=== PATIENT | female | born 1975 | race Caucasian/White ===

== ENCOUNTER 2017-04-10 09:00 | Day surgery (SDC) | payer MEDICAID, SELFPAY ==
[2017-04-10 09:31] LABS: Internal QC Validated? YES +Cl - CLEAR BKGD; Pregnancy, Urine Negative Negative
[2017-04-10 09:38] VITALS: BP 126/70; PULSE 54; RESP 18; TEMP 36.6; O2SAT 99; BMI 40.9
--- NOTE | 2017-04-10 10:55 | PCM.OPRPT ---
Problem List (1) Family history of colon cancer Status: Acute Comment: Father Report of Operation Date of Procedure: 04/10/17 Pre-Operative Diagnosis: Family history of colon cancer Post-Operative Diagnosis: Normal colon Surgery/Procedure Performed:: Colonoscopy Description of Surgical Findings:: Timeout and informed consent was obtained. 42-year-old female was taken to the endoscopy suite and placed in a left lateral decubitus position. Monitored tissue care was provided. Rectal exam performed. Normal anal tone. Mild hemorrhoidal changes. Flexible colonoscope inserted the rectum advanced with tortuous sigmoid colon. The scope was then advanced to the transverse colon and with transabdominal pressure was advanced to the cecum. Bowel prep was excellent. The cecum ileocecal valve was nicely achieved. The scope was carefully withdrawn from the ascending colon transverse colon descending colon and sigmoid. No focal abnormalities were identified. The scope was retroflexed within the rectum mild hemorrhoidal changes noted. Excess fluid and air was aspirated free the procedure was completed with the patient tolerating it well no apparent complications. Impression Normal colonoscopy Based upon family history recommendations for follow-up examination in 5 years. The patient has not had a previous examination. Cc: Dr. Tirado Colonoscopy initiated at 1041. Cecum reached at 1046. Procedure completed at 1052. Benny Hernandez M.D., F.A.C.S. Type of Anesthesia:: MAC
[2017-04-10 10:57] VITALS: BP 126/70; BP 133/88; PULSE 54; RESP 16; TEMP 37; O2SAT 98
[2017-04-10 11:02] VITALS: BP 123/83; BP 126/70; PULSE 50; RESP 16; O2SAT 100
[2017-04-10 11:07] VITALS: BP 110/79; BP 126/70; PULSE 54; RESP 16; O2SAT 100
[2017-04-10 11:12] VITALS: BP 123/85; BP 126/70; PULSE 46; RESP 18; TEMP 36.3; O2SAT 99
[2017-04-10 11:45] VITALS: BP 126/70
== END 2017-04-10 11:45 | disposition home or self-care (01) ==
LOC: EN 09:01 → AC 09:02
PROVIDERS: Anesthesiology; Visit Provider Surgery
PROC: 0DJD8ZZ Inspection of Lower Intestinal Tract, Via Natural or Artificial Opening Endoscopic (ICD-10-PCS; CPT 45378; principal; 2017-04-10 10:25)
DX: Z80.0 Family history of malignant neoplasm of digestive organs (principal); E66.01 Morbid (severe) obesity due to excess calories; E04.1 Nontoxic single thyroid nodule; Z68.41 Body mass index [BMI] 40.0-44.9, adult
CPT/HCPCS: 45378; 81025; J7120

== ENCOUNTER → 2017-04-22 12:12 | Outpatient (CLI) | payer MEDICAID, SELFPAY ==
--- NOTE | 2017-04-22 07:30 | ASPS_PTH ---
PATIENT: LEDA FINE LOC: [facility] U#:[id number] AGE/SX: 49/F ROOM: RE04/22/[address]: Dr. Benny Hernandez MD : 1975 BED: DIS: SPEC #: [id number] RECD: 04/22/17 12:15 STATUS: PHYLLIS SANTI #: [id number] BRIANNA: 04/22/17 07:[address]: Benny Hernandez DEPT: CYTOLOGY RECD BY: Max Strickland Tissues: Thyroid gland, NOS Procedures: Pap Stain (control) Special Stain Group II Cytology Other HEADER OPERATION: Right thyroid FNA PRE-OP DIAGNOSIS: Right thyroid FNA TISSUE SUBMITTED: Right thyroid slides (6 slides) DIAGNOSIS CYTOLOGY Right thyroid, FNA (smears): Consistent with chronic lymphocytic thyroiditis. SJ:amy 04/23/17 COMMENT Correlation with clinical, radiologic findings and appropriate follow up are necessary. CYTOLOGY STUDY Slides are reviewed. The specimen is adequate for evaluation. The specimen consists of numerous lymphocytes and benign follicular cells. CYTOLOGY GROSS Received are six smears labeled with the patient's name and designated per the requisition as right thyroid. Submitted for staining. 04/22/17 TC:5 CPT: 52906
== END ==
PROVIDERS: Visit Provider Surgery
DX: E04.1 Nontoxic single thyroid nodule (principal)
CPT/HCPCS: 88161; 88313

== ENCOUNTER → 2017-11-24 16:46 | Outpatient (CLI) | payer MEDICAID, SELFPAY ==
[2017-11-24 17:53] LABS: ALB/GLOB Ratio 0.9 RATIO (0.9-2.4); AST(SGOT) 15 U/L (15-37); Alanine Aminotransfer ALT/SGPT 19 U/L (13-56); Albumin, Serum 3.5 g/dL (3.2-5.0); Alkaline Phosphatase 71 U/L (45-117); Anion Gap 9 (5-15); BUN 14 mg/dL (7-18); BUN/Creat Ratio 19.8 RATIO (10-20); Calcium,Total 8.6 mg/dL (8.5-10.1); Chloride 108 mmol/L (98-107); Creatinine, Serum 0.71 mg/dL (0.55-1.02); EST Glomerular Filtration Rate 96 mL/min (>60); Est Glom Filt Rate - Afr Amer 117 mL/min (>60); Glucose 95 mg/dL (74-106); Potassium 3.7 mmol/L (3.5-5.1); Protein, Total 7.5 g/dL (6.4-8.2); Sodium Level 141 mmol/L (136-145)
== END ==
PROVIDERS: Visit Provider Family Medicine
DX: R94.5 Abnormal results of liver function studies (principal)
CPT/HCPCS: 36415; 80053

== ENCOUNTER → 2018-02-01 21:45 | Outpatient (CLI) | payer MEDICAID, SELFPAY ==
[2018-02-01 09:08] VITALS: BMI 43.4
[2018-02-05 08:29] LABS: HPV APTIMA, High Risk Negative (Negative)
== END ==
PROVIDERS: Family Provider Family Medicine; PCP Family Medicine; Referring Provider Nurse Practitioner Women's Health; Visit Provider Nurse Practitioner Women's Health
DX: Z12.4 Encounter for screening for malignant neoplasm of cervix (principal)
CPT/HCPCS: 87624; 88175; G0145

== ENCOUNTER → 2018-02-15 16:51 | Outpatient (CLI) | payer MEDICAID, SELFPAY ==
[2018-02-01 09:08] VITALS: BMI 43.4
--- NOTE | 2018-02-15 17:14 | RAD_ITS ---
STUDY: X-RAY CHEST REASON FOR EXAM: Female, 42 years old. Chest pain and pressure TECHNIQUE: PA and lateral views of the chest. COMPARISON: None. FINDINGS: The lungs are clear and expanded. There is no demonstrated pleural abnormality. Normal size heart. Normal mediastinum and jeremi. Normal visualized pulmonary arteries. Normal visualized aortic arch and descending thoracic aorta. Normal visualized thoracic spine. Normal visualized ribs, clavicles, and shoulders. There is no demonstrated abnormality of the visualized soft tissue structures of the upper abdomen. RAD/Chest PA and Lateral IMPRESSION: Normal x-ray examination of the chest. Electronically Signed: Darin Tinajero MD at 17:36 EST , Service support ,
== END ==
LOC: MTLAB 16:52 → MTRAD 17:13
PROVIDERS: Family Provider Family Medicine; PCP Family Medicine; Referring Provider Family Medicine; Visit Provider Family Medicine
DX: R05 Cough (principal)
CPT/HCPCS: 71046

== ENCOUNTER → 2018-03-24 15:31 | Outpatient (CLI) | payer MEDICAID, SELFPAY ==
[2018-02-01 09:08] VITALS: BMI 43.4
--- NOTE | 2018-03-24 15:34 | BI_ITS ---
MAMMOGRAPHY - BILATERAL SCREENING REASON FOR EXAM: Female, 43 years old. Routine annual screening examination. PERTINENT HISTORY: Grandmother with breast cancer. TECHNIQUE: Digital bilateral breast derick (3D mammographic acquisition) in the CC and MLO projections. 2-D mediolateral oblique (MLO) and craniocaudad (CC) views of both breasts were obtained. CAD: Full Field Digital Mammography with Computer Added Detection was performed. COMPARISON: No comparison mammograms available at this time. If any prior films become available, an addendum to this report can be generated. FINDINGS: Breast Composition: There are scattered areas of fibroglandular density. There are no dominant masses or suspicious calcifications. No other significant abnormalities are identified. BI/SCREENING MAMM (CAD), BILAT IMPRESSION: Negative screening mammogram. Yearly followup mammogram recommended. (A) ASSESSMENT CATEGORY: BIRADS Category 1: Negative. A letter regarding these results will be sent to the patient by the facility within 30 days. Approximately 10% of breast cancers are not detected by mammography. A normal mammogram should not delay biopsy of a clinically suspicious abnormality. [id number] Electronically Signed: Shawn Richter MD at 14:21 EST , Service support ,
== END ==
PROVIDERS: Family Provider Family Medicine; PCP Family Medicine; Visit Provider Nurse Practitioner Women's Health
DX: Z12.31 Encounter for screening mammogram for malignant neoplasm of breast (principal)
CPT/HCPCS: 77063; 77067

== ENCOUNTER → 2018-05-20 15:03 | Outpatient (CLI) | payer MEDICAID, SELFPAY ==
[2018-02-01 09:08] VITALS: BMI 43.4
--- NOTE | 2018-05-20 15:06 | US_ITS ---
STUDY: THYROID ULTRASOUND REASON FOR EXAM: Female, 43 years old. Thyroid nodule. TECHNIQUE: Ultrasound evaluation of the thyroid was performed with real-time and static morgan-scale imaging. COMPARISON: March 20, 2017. FINDINGS: RIGHT LOBE: The right lobe of the thyroid gland measures 4.3 x 1.6 x 1.7 cm. There is a heterogeneous echotexture. There is a 0.8 x 0.8 x 0.7 cm solid isoechoic nodule with hypoechoic rim in the mid right thyroid. There is peripheral vascularity. LEFT LOBE: The left lobe of the thyroid gland measures 4.8 x 1.9 x 1.6 cm. There is a heterogeneous echotexture. There is a hypoechoic nodules in the mid thyroid measuring 1 x 0.9 x 0.7 cm, there is a 1.5 x 0.6 x 0.7 cm hypoechoic nodule posteriorly in the lower pole which may represent a parathyroid gland. There is also an isoechoic nodule with hypoechoic rim, measuring 1.0 x 0.8 x 0.6 cm. These were demonstrated and is distinct nodules on the previous study and can be identified in retrospect. ISTHMUS: The isthmus measures 0.3 cm. The regional lymph nodes are normal. US/Thyroid IMPRESSION: Stable ultrasound. The most suspicious nodule is classified TR 2, not suspicious by ACR TIRADS classification. No biopsy or follow-up required. Electronically Signed: Randall Knapp DO at 21:53 EST Tel [phone], Service support ,
== END ==
PROVIDERS: Family Provider Family Medicine; PCP Family Medicine; Referring Provider Family Medicine; Visit Provider Family Medicine
DX: E04.1 Nontoxic single thyroid nodule (principal)
CPT/HCPCS: 76536

== ENCOUNTER → 2018-11-16 16:28 | Outpatient (CLI) | payer MEDICAID, SELFPAY ==
[2018-02-01 09:08] VITALS: BMI 43.4
--- NOTE | 2018-11-16 16:31 | RAD_ITS ---
HISTORY:CHRONIC KNEE PAIN, NO KNOWN INJURY CHRONIC KNEE PAIN, NO KNOWN INJURY COMPARISON: None FINDINGS: # of images incl. paperwork: 4 XR Knee Complete 4 Views or More: Right BONE AND JOINTS: No acute fracture or subluxation. SOFT TISSUES: Unremarkable. No radiopaque foreign body. RAD/Knee 4 or More Views IMPRESSION: No acute pathology at 2147 Reported and signed by: Radha Galvez DO Electronically Signed: Radha Galvez DO at 21:45 EDT Tel , Service support ,
--- NOTE | 2018-11-16 16:31 | RAD_ITS ---
HISTORY:PPainRAD-EXT/JT PPainRAD-EXT/JT COMPARISON: None FINDINGS: # of images incl. paperwork: 4 XR Knee Complete 4 Views or More: Left BONE AND JOINTS: No acute fracture or subluxation. SOFT TISSUES: Unremarkable. No radiopaque foreign body. RAD/Knee 4 or More Views IMPRESSION: No acute pathology at 2146 Reported and signed by: Radha Galvez DO Electronically Signed: Radha Galvez DO at 21:45 EDT Tel , Service support ,
== END ==
PROVIDERS: Family Provider Family Medicine; PCP Family Medicine; Referring Provider Family Medicine; Visit Provider Family Medicine
DX: M25.561 Pain in right knee (principal); M25.562 Pain in left knee
CPT/HCPCS: 73564

== ENCOUNTER → 2019-10-03 | Outpatient (CLI) | payer MEDICAID, SELFPAY ==
[2018-02-01 09:08] VITALS: BMI 43.4
[2019-10-03 12:16] LABS: Anion Gap 5 (5-15); BUN 13 mg/dL (7-18); BUN/Creat Ratio 20.1 RATIO (10-20); Calcium,Total 8.3 mg/dL (8.5-10.1); Chloride 113 mmol/L (98-107); Creatinine, Serum 0.65 mg/dL (0.55-1.02); EST Glomerular Filtration Rate 106 mL/min (>60); Est Glom Filt Rate - Afr Amer 128 mL/min (>60); Glucose 99 mg/dL (74-106); Potassium 3.9 mmol/L (3.5-5.1); Sodium Level 138 mmol/L (136-145)
[2019-10-03 12:29] LABS: Rubella IgG 19.9 IU/mL
[2019-10-07 13:09] LABS: Cholesterol 165 mg/dL (200); High Density Lipoprotein 42 mg/dL; Triglycerides 136 mg/dL; Very Low Density Lipoprotein 27 mg/dL (5-40)
[2019-10-10 11:34] LABS: Mumps Antibody,IgG 19.5 AU/mL (Immune >10.9)
== END | disposition home or self-care (01) ==
PROVIDERS: PCP Family Medicine; Referring Provider Family Medicine; Visit Provider Nurse Practitioner Family
DX: Z00.00 Encounter for general adult medical examination without abnormal findings (principal); Z78.9 Other specified health status
CPT/HCPCS: 36415; 80048; 80061; 86735; 86762; 86765

== ENCOUNTER → 2020-01-16 16:38 | Outpatient (CLI) | payer MEDICAID, SELFPAY ==
[2018-02-01 09:08] VITALS: BMI 43.4
--- NOTE | 2020-01-16 16:40 | US_ITS ---
STUDY: THYROID ULTRASOUND REASON FOR EXAM: Female, 44 years old. NODULE TECHNIQUE: Ultrasound evaluation of the thyroid was performed with real-time and static morgan-scale imaging. COMPARISON: 05/20/2018 FINDINGS: RIGHT LOBE: The right lobe of the thyroid gland measures 4.9 x 1.5 x 2 cm. There is a heterogeneous c echotexture. There is a hyperechoic solid nodule with irregular borders in the upper pole with intranodular vascularity measuring 8.7 x 7.2 mm LEFT LOBE: The left lobe of the thyroid gland measures 5 x 1.7 x 1.6 cm. There is a heterogeneous echotexture. There is a hyperechoic irregular nodule in the upper pole measuring 8 x 11 x 8 mm with perinodular vascularity. There is a second hypoechoic nodule in the mid pole measuring 8 x 7 x 6 mm ISTHMUS: The isthmus measures 2.6 mm . The regional lymph nodes are normal. There is a stable appearance to the nodule in the right lobe since prior study. The nodules in left lobe are slightly smaller US/Thyroid IMPRESSION: Persistent bilateral thyroid nodules with slight interval improvement since previous study Electronically Signed: Maximino Apple MD at 17:44 EST , Service support ,
== END ==
PROVIDERS: PCP Family Medicine; Referring Provider Family Medicine; Visit Provider Family Medicine
DX: E04.1 Nontoxic single thyroid nodule (principal)
CPT/HCPCS: 76536

== ENCOUNTER → 2020-02-15 | Outpatient (CLI) | payer MEDICAID, SELFPAY ==
[2018-02-01 09:08] VITALS: BMI 43.4
== END | disposition home or self-care (01) ==
LOC: LABSPEC 14:26
PROVIDERS: PCP Family Medicine; Visit Provider Family Medicine
DX: Z20.828 Contact with and (suspected) exposure to other viral communicable diseases (principal)
CPT/HCPCS: 87635; U0003

== ENCOUNTER 2021-07-03 15:09 | Outpatient (CLI) | payer MEDICAID, SELFPAY ==
--- NOTE | 2021-07-03 15:13 | US_ITS ---
STUDY: THYROID ULTRASOUND REASON FOR EXAM: Female, 46 years old. NODULE TECHNIQUE: Ultrasound evaluation of the thyroid was performed with real-time and static morgan-scale imaging. COMPARISON: 01/16/2020 thyroid ultrasound FINDINGS: RIGHT LOBE: The right lobe of the thyroid gland measures 5.1 x 1.6 x 1.7 cm. There is a homogeneous echotexture. There is a 1.0 x 0.9 x 0.8 isoechoic exophytic stable vascular solid nodule right thyroid. LEFT LOBE: The left lobe of the thyroid gland measures 5.6 x 1.6 x 1.5 cm. There is a homogeneous echotexture. There is a 1.4 x 0.9 x 1.0 cm mixed echogenicity left thyroid nodule. There is a 1.1 x 0.6 x 0.9 nodule with hypoechoic features. Minimal vascularity. ISTHMUS: The isthmus measures 3.2 . The regional lymph nodes are normal. US/Thyroid IMPRESSION: Stable bilateral pulmonary nodules. Recommend continued follow-up. Electronically Signed: Radha Ho MD at 7:58 EDT ,
== END 2021-07-03 23:59 | disposition home or self-care (01) ==
LOC: US 15:11
PROVIDERS: PCP Family Medicine; Referring Provider Family Medicine; Visit Provider Family Medicine
DX: E04.1 Nontoxic single thyroid nodule (principal)
CPT/HCPCS: 76536

== ENCOUNTER → 2021-10-10 | Outpatient (CLI) | payer MEDICAID, SELFPAY ==
[2021-10-10 18:17] LABS: Anion Gap 6 (5-15); BUN 15 mg/dL (7-18); BUN/Creat Ratio 22.1 RATIO (10-20); Chloride 108 mmol/L (98-107); Cholesterol 160 mg/dL (200); Creatinine, Serum 0.68 mg/dL (0.55-1.02); EST Glomerular Filtration Rate 99 mL/min (>60); Est Glom Filt Rate - Afr Amer 120 mL/min (>60); Glucose 106 mg/dL (74-106); High Density Lipoprotein 46 mg/dL; Potassium 3.7 mmol/L (3.5-5.1); Sodium Level 140 mmol/L (136-145); Triglycerides 137 mg/dL; Very Low Density Lipoprotein 27 mg/dL (5-40)
== END | disposition home or self-care (01) ==
LOC: MFPLAB 16:51
PROVIDERS: PCP Family Medicine; Referring Provider Family Medicine; Visit Provider Nurse Practitioner Family
DX: Z13.1 Encounter for screening for diabetes mellitus (principal); Z13.220 Encounter for screening for lipoid disorders
CPT/HCPCS: 36415; 80048; 80061

== ENCOUNTER → 2021-10-11 | Outpatient (CLI) | payer MEDICAID, SELFPAY ==
--- NOTE | 2021-10-11 07:49 | BI_ITS ---
MAMMOGRAPHY - BILATERAL SCREENING REASON FOR EXAM: Female, 46 years old. Routine annual screening examination. PERTINENT HISTORY: Grandmother with breast cancer. TECHNIQUE: Digital bilateral breast kalani (3D mammographic acquisition) in the CC and MLO projections. 2-D mediolateral oblique (MLO) and craniocaudad (CC) views of both breasts were obtained. CAD: Full Field Digital Mammography with Computer Added Detection was performed. COMPARISON: Comparison is made with prior examination dated 03/24/2018. FINDINGS: Breast Composition: There are scattered areas of fibroglandular density. There are no dominant masses or suspicious calcifications. No other significant abnormalities are identified. There has been no significant change since the prior study. BI/SCRN MAMM (CAD)W/KALANI BILAT IMPRESSION: Stable bilateral screening mammogram. Yearly follow-up mammogram recommended. (A) ASSESSMENT CATEGORY: BIRADS Category 1: Negative. A letter regarding these results will be sent to the patient by the facility within 30 days. Approximately 10% of breast cancers are not detected by mammography. A normal mammogram should not delay biopsy of a clinically suspicious abnormality. [id number] Electronically Signed: Shawn Richter MD at 8:23 EDT ,
== END | disposition home or self-care (01) ==
LOC: OPBI 07:48
PROVIDERS: PCP Family Medicine; Visit Provider Nurse Practitioner Family
DX: Z12.31 Encounter for screening mammogram for malignant neoplasm of breast (principal)
CPT/HCPCS: 77063; 77067

== ENCOUNTER 2022-03-06 13:13 | Emergency (ER) | payer MEDICAID, SELFPAY ==
[2022-03-06 13:14] VITALS: BP 147/86; PULSE 66; RESP 15; TEMP 36.1; O2SAT 99; BMI 34.9
--- NOTE | 2022-03-06 13:54 | EDS_ITS ---
HPI History of Present Illness HPI Narrative: Right hand injury in her garage door. Primarily right index and long finger. Chief Complaint: Upper Extremity Injury Informant: patient Occured/Mechanism Mechanism/Context: Yes injury and Yes blunt trauma Onset/Context/Timing Onset: Today and Hours Context: Sudden Onset Timing: Continuous Quality of Pain: Dull and Aching Current Severity: Moderate Maximum Severity: Moderate Associated Symptoms Associated Symptoms: Negative for Parasthesia, Weakness or Loss of Funtion Narrative Narrative: 47-year-old female [id number]. Past medical history of anxiety. No prior surgeries to her hand. She was manually opening her garage door when she got her hand caught between the creases of the slats of the door. Complaining of pain. No other injuries. Prior similar symptoms: No Recent Illness/Hospitalization: No PFSH [facility] Medical History (Updated 03/06/22 @ 14:[address] Thaddeus Redding MD) Allergic rhinitis Anxiety Family history of colon cancer IGT (impaired glucose tolerance) Morbid obesity Home Medications fluticasone propionate 50 mcg/actuation nasal spray,suspension (Flonase Allergy Relief) 50 mcg intranasal QDAY PRN allergies 03/20/17 [History Last Taken Unknown] sertraline 100 mg tablet (Zoloft) 100 mg PO QDAY 03/20/17 [History Last Taken Unknown] etonogestrel 0.12 mg-ethinyl estradiol 0.015 mg/24 hr vaginal ring (NuvaRing) 1 vag ring vaginal Q4W #1 ea 02/01/18 [Rx Last Taken Unknown] doxycycline hyclate 100 mg capsule 100 mg PO BID 03/06/22 [History Last Taken Unknown] Allergy/AdvReac Type Severity Reaction Status Date / Time Penicillins Allergy Unknown A Verified 03/06/22 13:14 CHILD, UNKNOWN RXN iodine AdvReac Rash Verified 03/06/22 13:14 Family History Father Colon cancer Mother CVA (cerebral vascular accident) Hypertension Diabetes Sister Seizures Surgical History S/P thyroid biopsy S/P tonsillectomy S/P wisdom tooth extraction Social History Smoking Status: Never smoker second hand exposure: No alcohol intake: never substance use type: does not use caffeine: No what type of physical activity do you participate in: none frequency: does not exercise seatbelt use: always ROS ROS ED ROS Narrative Viral syndrome a week ago. Since resolved. Review of Systems ROS Unobtainable: Denies due to encephalopathy Constitutional Constitutional ED: Denies chills or fever(s) Eyes Eyes: Denies blurry vision ENT ENT ED: Denies ear pain Cardiovascular Cardiovascular: Denies chest pain Respiratory/Chest Respiratory/Chest: Denies cough Gastrointestinal Gastrointestinal: Denies abdominal pain Genitourinary Genitourinary ED: Denies dysuria Musculoskeletal Musculoskeletal: Denies back pain Integumentary Denies abscess Neurologic Neurologic: Denies headache(s) Psychiatric Psychiatric: Denies anxiety Endocrine Endocrinology: Denies cold intolerance Hematologic/Lymphatic Hematologic/Lymphatic: Denies easy bleeding Allergic/Immunologic Allergic/Immunologic ED: Denies mouth swelling or tongue swelling EXAM Physical Exam Narrative Exam Narrative: Well-appearing 47-year-old female. Vital signs stable afebrile. H EENT exam unremarkable. Atraumatic. Nontender. Pupils round reactive light. Scalp and face nontender. No signs of trauma. C-spine nontender normal range of motion. Back nontender. Spine nontender. Lungs are clear. Heart regular rhythm. Chest wall nontender. Abdomen soft nontender. Moving all 4 extremities. Neurovascular intact. Right hand the right elbow forearm and wrist are nontender normal range of motion. Right hand has a superficial laceration on the distal phalanx of the right index finger on the palmar aspect that does not need to be repaired. There is also a contusion and bruise and subungual hematoma on the right long finger below the nail. Both areas are tender and swollen. No gross bony deformity. Normal flexion extension. The thumb ring and small digits are nontender as is the palm. Neurologic exam normal. Const Vital Signs: 03/06/22 13:14 Temperature 97.0 F L Temperature Source Temporal Pulse Rate 66 Respiratory Rate 15 Blood Pressure 147/86 H Blood Pressure Mean 106 Pulse Ox 99 Oxygen Delivery Method Room Air Positive well nourished, well developed and obese; Negative for cachectic, contractures or unkempt General Appearance ED: well developed and NAD; Negative for unkempt, cachectic, contractures, cyanotic or diaphoretic Nutritional Appearance: obese; Negative for cachectic HEENT Reports moist mucous membranes normocephalic and atraumatic; Negative for trauma or tenderness Eyes PERRL and EOMs intact bilaterally Neck full ROM and supple General: Negative for tenderness Lymph Lymphatic: Negative for other Chest Wall inspection of chest normal and palpation of chest normal Chest: Negative for other Resp normal respiratory effort and clear to auscultation bilaterally Effort and Inspection: Negative for pain with movement Auscultation: Negative for rales, rhonchi or wheezes Cardio regular rate, regular rhythm, S1 normal heart sound, S2 normal heart sound and no murmurs Rate: Negative for bradycardia or tachycardic GI non-tender, non-distended and no masses Inspection: Negative for abdominal distention Auscultation: normoactive bowel sounds Palpation: soft; Negative for tender or guarding Back/Spine no CVA tenderness General Back: Negative for CVA tenderness Cervical Spine: Negative for cervical spine tenderness Thoracic Spine / Upper Back: Negative for thoracic spinal tenderness Lumbar Spine / Lower Back: Negative for lumbar spinal tenderness Extremity normal to inspection and full ROM Extremity Narrative: Except right hand palmar aspect superficial laceration distal phalanx of the right index finger. Bruising subungual hematoma to the distal phalanx of the right long finger. No gross bony deformity. Both are tender. Normal range of motion. General Extremety ED: Yes edema General Extremity: edema Neuro oriented x3, CN's II-XII intact bilaterally, moves all extremities and no focal motor deficits Sensorium / Orientation: alert, oriented to person, oriented to place and oriented to time; Negative for orientation impaired, lethargic or stuporous Motor Exam: strength 5/5 throughout Psych mental status grossly normal Appearance: Negative for unkempt Mood & Affect: Negative for depressed, anxious or tearful Skin Skin Narrative: Superficial laceration palmar aspect right index finger distal phalanx. Bruise and hematoma right long finger distal phalanx. General Skin Exam: Negative for petechiae Lesions: no lesions Rashes: no rashes Trauma: laceration; Negative for no lacerations or abrasions MDM MDM MDM Narrative Medical decision making narrative: 47-year-old female was closing her garage door and injured her right hand. Has a superficial laceration distal phalanx and a subungual hematoma right long finger nail. X-ray to be obtained to rule out any fractures. Repeat unchanged at 2:44 PM. I did go over the x-rays with the patient. Discharged home. Ice and elevate. Tylenol Motrin. Wound care. Cleaned and dressed. Radiography Diagnostic Testing: Right hand x-ray, 3 views, interpreted by myself shows soft tissue swelling of the right index and long finger. No fracture. No dislocation. Discharge Plan Triage Chief Complaint: Upper Extremity Injury ED Provider: Thaddeus Redding Dx/Rx/DC Orders Clinical Impression: Contusion of finger, Superficial laceration, Subungual hematoma Instructions: ED Finger Contusion, ED Subungual Hematoma Prescriptions: No Action sertraline [Zoloft] 100 mg tablet 100 mg PO QDAY fluticasone propionate [Flonase Allergy Relief] 50 mcg/actuation spray,suspension 50 mcg INTRANASAL QDAY PRN (Reason: allergies) NuvaRing 0.12-0.015 mg/24 hr ring 1 vag ring VAGINAL Q4W Qty: 1 12RF Rx Instructions: leave in place for 4 weeks, remove for menses and insert new one 1 week later doxycycline hyclate 100 mg capsule 100 mg PO BID Label Comments: TAKE 1 CAPSULE BY MOUTH TWICE DAILY FOR 10 DAYS Primary Care Provider: Elvis Tirado Referrals: Elvis Tirado MD [Primary Care Provider] - 1 Week Activity Restrictions/Additional Instructions: Ice and elevate. Keep the laceration clean apply antibiotic ointment daily. Watch for any signs of infection. If seen return. Motrin and Tylenol for pain. Disposition Disposition: Home, Self Care
--- NOTE | 2022-03-06 13:59 | RAD_ITS ---
STUDY: X-RAY - RIGHT HAND REASON FOR EXAM: Female, 47 years old. smashed fingers, pain, 2nd, 3rd, and tip of 4th digits have lacerations. TECHNIQUE: 3 view(s) of the hand. COMPARISON: None. FINDINGS: Normal radiocarpal articulation. Normal distal radioulnar joint. Normal visualized carpal bones. Normal carpal articulations Normal carpometacarpal articulation of the thumb. Normal second through fifth carpometacarpal joints. Normal metacarpi. No visualized fracture or displaced bony fragment. Normal metacarpophalangeal joint of the thumb. Normal interphalangeal joint of the thumb. Normal proximal and distal phalanges of the thumb. Normal metacarpophalangeal joints of the second through fifth fingers. Normal proximal and distal interphalangeal joints of the second through fifth fingers. Normal phalanges of the second through fifth fingers. The soft tissue structures are unremarkable. RAD/Hand Min 3 Views IMPRESSION: Normal x-ray examination of the hand. Electronically Signed: Shelton Victor MD at 14:33 EST ,
== END 2022-03-06 14:58 | disposition home or self-care (01) ==
PROVIDERS: Emergency Provider Emergency Medicine; PCP Family Medicine; Visit Provider Emergency Medicine
DX: S61.210A Laceration without foreign body of right index finger without damage to nail, initial encounter (principal); F41.9 Anxiety disorder, unspecified; E66.9 Obesity, unspecified; M79.89 Other specified soft tissue disorders; W23.0XXA Caught, crushed, jammed, or pinched between moving objects, initial encounter
CPT/HCPCS: 73130; 99282

== ENCOUNTER → 2023-01-21 | Outpatient (CLI) | payer MEDICAID, SELFPAY ==
[2023-01-21 17:57] LABS: Absolute Lymphocyte Count 2.02 X10^3/uL (0.83-4.51); Absolute Neutrophil Count 3.7 X10^3/uL (2.0-7.7); Basophil# 0.06 X10^3/uL; Eosinophil# 0.08 X10^3/uL; Eosinophils% 1.3 % (0-5); Hematocrit 40.7 % (37-47); Hemoglobin 12.6 g/dL (12.0-15.0); Lymphocyte # 2.02 X10^3/ul (0.83-4.51); Lymphocyte % 32.4 % (19-41); Mean Corpuscular Hgb 26.8 pg (27.0-32.0); Mean Corpuscular Volume 86.6 fL (81-99); Mean Platelet Vol. 10.7 fl (6.2-12.0); Monocyte# 0.32 X10^3/uL; Monocyte% 5.1 % (0-10); NRBC Flagged by Analyzer 0 % (0-5); Neutrophil # 3.74 X10^3/uL (2.7-7.7); Neutrophil % 59.9 % (47-70); Platelet Count 296 K/mm3 (150-450); RBC Distribution Width CV 14.7 % (11.6-14.6); RBC Distribution Width SD 46.8 fl (35.1-43.9); White Blood Count 6.2 K/mm3 (4.4-11.0)
[2023-01-21 18:24] LABS: ALB/GLOB Ratio 0.8 RATIO (0.9-2.4); AST(SGOT) 18 U/L (15-37); Alanine Aminotransfer ALT/SGPT 23 U/L (13-56); Albumin, Serum 3.6 g/dL (3.2-5.0); Alkaline Phosphatase 85 U/L (45-117); Anion Gap 9 (5-15); BUN 17 mg/dL (7-18); BUN/Creat Ratio 27.4 RATIO (10-20); Calcium,Total 9.2 mg/dL (8.5-10.1); Chloride 106 mmol/L (98-107); Cholesterol 175 mg/dL (200); Creatinine, Serum 0.62 mg/dL (0.55-1.02); EST Glomerular Filtration Rate 110 mL/min (>60); Est Glom Filt Rate - Afr Amer 133 mL/min (>60); Globulin 4.6 g/dL (2.2-4.2); Glucose 101 mg/dL (74-106); High Density Lipoprotein 54 mg/dL; Potassium 3.6 mmol/L (3.5-5.1); Protein, Total 8.2 g/dL (6.4-8.2); Sodium Level 139 mmol/L (136-145); Triglycerides 93 mg/dL; Very Low Density Lipoprotein 19 mg/dL (5-40)
[2023-01-22 14:40] LABS: Hemoglobin A1c 5.3 % (3.8-5.6)
[2023-01-26 15:08] LABS: PROEL- A/G Ratio 0.9 (0.7-1.7); PROEL- Albumin 3.5 g/dL (2.9-4.4); PROEL- Alpha-1 Globulin 0.3 g/dL (0.0-0.4); PROEL- Alpha-2 Globulin 0.9 g/dL (0.4-1.0); PROEL- Beta Globulin 1.3 g/dL (0.7-1.3); PROEL- Gamma Globulin 1.3 g/dL (0.4-1.8); PROEL- Globulin, Total 3.9 g/dL (2.2-3.9); PROEL- TOTAL PROTEIN 7.4 g/dL (6.0-8.5); PROEL-M-Spike Not Observed g/dL (Not Observed)
== END | disposition home or self-care (01) ==
LOC: MFPLAB 16:55
PROVIDERS: PCP Family Medicine; Visit Provider Family Medicine
DX: E88.09 Other disorders of plasma-protein metabolism, not elsewhere classified (principal); E66.01 Morbid (severe) obesity due to excess calories; R73.09 Other abnormal glucose
CPT/HCPCS: 36415; 80053; 80061; 83036; 84165; 85025

== ENCOUNTER → 2023-11-17 | Outpatient (CLI) | payer MEDICAID, SELFPAY ==
[2023-11-17 17:45] LABS: Absolute Neutrophil Count 3.4 X10^3/uL (2.0-7.7); Basophil# 0.03 X10^3/uL; Basophil% 0.5 % (0-1); Eosinophil# 0.11 X10^3/uL; Eosinophils% 1.8 % (0-5); Hematocrit 36.9 % (37-47); Hemoglobin 11.7 g/dL (12.0-15.0); Lymphocyte % 35.6 % (19-41); Mean Corp Hgb Conc 31.7 g/dL (32-36); Mean Corpuscular Hgb 26.5 pg (27.0-32.0); Mean Corpuscular Volume 83.5 fL (81-99); Mean Platelet Vol. 10.9 fl (6.2-12.0); Monocyte# 0.42 X10^3/uL; Monocyte% 6.8 % (0-10); NRBC Flagged by Analyzer 0 % (0-5); Platelet Count 274 K/mm3 (150-450); RBC Distribution Width CV 15.1 % (11.6-14.6); Red Blood Count 4.42 M/mm3 (4.2-5.4); White Blood Count 6.2 K/mm3 (4.4-11.0)
[2023-11-17 18:26] LABS: ALB/GLOB Ratio 0.9 RATIO (0.9-2.4); AST(SGOT) 22 U/L (15-37); Alanine Aminotransfer ALT/SGPT 20 U/L (13-56); Albumin, Serum 3.5 g/dL (3.2-5.0); Alkaline Phosphatase 75 U/L (45-117); Anion Gap 6 (5-15); BUN 15 mg/dL (7-18); BUN/Creat Ratio 24.5 RATIO (10-20); Calcium,Total 8.9 mg/dL (8.5-10.1); Chloride 105 mmol/L (98-107); Cholesterol 160 mg/dL (200); Creatinine, Serum 0.61 mg/dL (0.55-1.02); EST Glomerular Filtration Rate 111 mL/min (>60); Est Glom Filt Rate - Afr Amer 134 mL/min (>60); Globulin 4.1 g/dL (2.2-4.2); Glucose 96 mg/dL (74-106); High Density Lipoprotein 50 mg/dL; Potassium 3.8 mmol/L (3.5-5.1); Protein, Total 7.6 g/dL (6.4-8.2); Sodium Level 137 mmol/L (136-145); Triglycerides 81 mg/dL; Very Low Density Lipoprotein 16 mg/dL (5-40)
[2023-11-18 14:28] LABS: Ferritin 89 ng/mL (8-252); Iron 46 ug/dL (50-170); Iron Binding Capacity,Total 360 ug/dL (250-450); PERCENT IRON SATURATION 12.8 % (15.0-55.0)
== END | disposition home or self-care (01) ==
LOC: MFPLAB 16:38
PROVIDERS: PCP Family Medicine; Visit Provider Family Medicine
DX: E66.01 Morbid (severe) obesity due to excess calories (principal); D64.9 Anemia, unspecified
CPT/HCPCS: 36415; 80053; 80061; 82728; 83540; 83550; 85025

== ENCOUNTER → 2023-12-09 | Outpatient (CLI) | payer MEDICAID, SELFPAY ==
--- NOTE | 2023-12-09 16:25 | US_ITS ---
EXAM: US SOFT TISSUES HEAD AND NECK, THYROID CLINICAL INDICATION: nodule TECHNIQUE: Greyscale and color doppler imaging was performed of the thyroid gland. COMPARISON: 03/20/2017; 05/20/2018; 01/16/2020 FINDINGS: LEFT THYROID LOBE: The left thyroid lobe measures 5.5 x 1.8 x 1.7 cm. There is a 1.5 cm left thyroid nodule. This nodule is solid or almost completely solid, hyperechoic or isoechoic, [id number], ill-defined and contains no echogenic foci. TI-RADS points: 3. TI-RADS category: TR3. This nodule is mildly suspicious. Recommend follow-up thyroid ultrasounds at 1, 3 and 5 years. There is a 0.7 cm left thyroid nodule. This nodule is solid or almost completely solid, hypoechoic, [id number], smoothly marginated and contains no echogenic foci. TI-RADS points: 4. TI-RADS category: TR4. This nodule is moderately suspicious but no FNA or follow-up is necessary given the small size of this nodule. RIGHT THYROID LOBE: The right thyroid lobe measures 5.1 x 1.6 x 1.7 cm. There is a 1.3 cm right thyroid nodule. This nodule is solid or almost completely solid, hyperechoic or isoechoic, [id number]-[id number]-uvor, smoothly marginated and contains no echogenic foci. TI-RADS points: 3. TI-RADS category: TR3. This nodule is mildly suspicious but no FNA or follow-up is necessary given the small size of this nodule. ISTHMUS: No significant abnormality. No thyroid nodules are present. US/Thyroid IMPRESSION: Bilateral thyroid nodules. No FNA is recommended this time. Recommend follow-up thyroid ultrasound in 1 year. Electronically Signed: Brad De Leon DO at 21:23 EDT ,
== END | disposition home or self-care (01) ==
LOC: US 16:22
PROVIDERS: PCP Family Medicine; Referring Provider Family Medicine; Visit Provider Family Medicine
DX: E04.1 Nontoxic single thyroid nodule (principal)
CPT/HCPCS: 76536

== ENCOUNTER → 2024-08-12 | Outpatient (CLI) | payer MEDICAID, SELFPAY ==
[2024-08-12 19:50] LABS: Absolute Lymphocyte Count 1.92 X10^3/uL (0.83-4.51); Absolute Neutrophil Count 3.4 X10^3/uL (2.0-7.7); Basophil# 0.02 X10^3/uL; Basophil% 0.3 % (0-1); Eosinophil# 0.15 X10^3/uL; Eosinophils% 2.6 % (0-5); Hemoglobin 11.5 g/dL (12.0-15.0); Lymphocyte # 1.92 X10^3/ul (0.83-4.51); Mean Corp Hgb Conc 31.1 g/dL (32-36); Mean Corpuscular Hgb 26.9 pg (27.0-32.0); Mean Corpuscular Volume 86.7 fL (81-99); Mean Platelet Vol. 10.8 fl (6.2-12.0); Monocyte# 0.34 X10^3/uL; Monocyte% 5.8 % (0-10); NRBC Flagged by Analyzer 0 % (0-5); Neutrophil # 3.38 X10^3/uL (2.7-7.7); Neutrophil % 58.1 % (47-70); Platelet Count 310 K/mm3 (150-450); RBC Distribution Width CV 15.2 % (11.6-14.6); RBC Distribution Width SD 48.1 fl (35.1-43.9); Red Blood Count 4.27 M/mm3 (4.2-5.4); White Blood Count 5.8 K/mm3 (4.4-11.0)
[2024-08-12 20:47] LABS: ALB/GLOB Ratio 1.2 RATIO (0.9-2.4); AST(SGOT) 22 U/L (<=31); Alanine Aminotransfer ALT/SGPT 19 U/L (<=34); Albumin, Serum 4.1 g/dL (3.5-5.0); Alkaline Phosphatase 71 U/L (35-104); Anion Gap 10 (5-15); BUN 13 mg/dL (4-19); BUN/Creat Ratio 13.9 RATIO (10-20); Carbon Dioxide 24.7 mmol/L (21.0-32.0); Chloride 103 mmol/L (98-108); Cholesterol 176 mg/dL (<=200); Creatinine, Serum 0.92 mg/dL (0.70-1.20); EST Glomerular Filtration Rate 77 (>60); Ferritin 132 ng/mL (22-378); Globulin 3.3 g/dL (2.2-4.2); Glucose 101 mg/dL (70-99); High Density Lipoprotein 47 mg/dL; Low Density Lipoprotein Calc. 107 mg/dL; Potassium 4.1 mmol/L (3.3-5.1); Protein, Total 7.4 g/dL (5.9-8.4); Sodium Level 137 mmol/L (133-145); Triglycerides 112 mg/dL; Very Low Density Lipoprotein 22 mg/dL (5-40); Vitamin B12 624 pg/mL (180-914); cholesterol:hdl ratio screen 3.76
[2024-08-13 00:15] LABS: Iron 45 ug/dL (50-170)
== END | disposition home or self-care (01) ==
LOC: MFPLAB 14:39
PROVIDERS: PCP Family Medicine; Visit Provider Family Medicine
DX: D64.9 Anemia, unspecified (principal); E66.01 Morbid (severe) obesity due to excess calories
CPT/HCPCS: 36415; 80053; 80061; 82607; 82728; 83540; 85025

== ENCOUNTER → 2024-08-23 | Outpatient (CLI) | payer MEDICAID, SELFPAY ==
--- NOTE | 2024-08-23 14:09 | BI_ITS ---
EXAM: SCRN MAMM (CAD)W/KALANI BILAT DATE: 08/23/2024 CLINICAL HISTORY: F, Age 49 y/o , SCREENING Grandmother with breast cancer. BREAST CANCER RISK ASSESSMENT: Not assessed. TECHNIQUE: Bilateral screening digital breast tomosynthesis with 2D and 3D images. Computer aided detection. COMPARISON: Prior exam(s) dated October 11, 2021.. FINDINGS: TISSUE DENSITY: The breast tissue is almost entirely fatty. Bilateral Breast Mammographic Findings: No significant masses, calcifications or other abnormalities are identified. Stable small benign-appearing bilateral axillary lymph nodes. No suspicious masses, areas of developing architectural distortion, or suspicious calcifications. There has been no significant interval change. BI/SCRN MAMM (CAD)W/KALANI BILAT IMPRESSION: OVERALL FINAL ASSESSMENT: BIRADS 2 BENIGN FINDING RECOMMENDATION: Routine annual follow-up in 1 Year A letter with findings and recommendations will be mailed to the patient. Reading Location: [place] [id number]
--- NOTE | 2024-08-23 14:09 | US_ITS ---
PROCEDURE: THYROID 08/23/2024 REASON FOR EXAM: Thyroid nodules. Follow-up examination. TECHNIQUE: High-frequency thyroid ultrasound, including grayscale and color-flow images. REFERENCE LINKS: TI-RADS Chart: [email or web address] TI-RADS Calculator Tool with Reference Images: [email or web address] COMPARISON: Prior study dated December 09, 2023. FINDINGS: Right thyroid lobe size: 5.6 cm 1.7 cm 1.9 cm Left thyroid lobe size: 5.5 cm 2.2 cm 1.7 cm Isthmus: 0.3 cm Background parenchymal echotexture is heterogeneous Nodules: . Lobe: Right, Location: Upper pole, Size: 1.3 cm x 1.2 cm 1 cm, Stability: Stable Composition: Solid or almost completely solid (+2) Echogenicity: Hypoechoic (+2) Margin: Smooth (+0) Shape: Wider than tall (+0) Echogenic Foci: None (+0) TI-RADS: <2 = TR 1 * 2 = TR 2 * 3 = TR 3 * 4-6 = TR 4 * >6 = TR 5 . Lobe: Left, Location: Upper pole, Size: 1.8 cm 1.3 cm 1.1 cm cm, Stability: Stable Composition: Mixed cystic and solid (+1) Echogenicity: Hypoechoic (+2) Margin: Smooth (+0) Shape: Wider than tall (+0) Echogenic Foci: None (+0) TI-RADS: <2 = TR 1 * 2 = TR 2 * 3 = TR 3 * 4-6 = TR 4 * >6 = TR 5 US/Thyroid IMPRESSION: Enlarged thyroid with heterogeneous echotexture. Stable bilateral thyroid nodules. RECOMMENDATION: Based on most suspicious nodule. Nodule size = largest diameter Only evaluate nodule if =>5 mm. Growth > 20% in 2 dimensions = worsening. Follow up to 4 nodules. Recommend biopsy for no more than 2 nodules. Reading Location: [place] [address]
== END | disposition home or self-care (01) ==
LOC: OPUS 14:07
PROVIDERS: PCP Family Medicine; Referring Provider Family Medicine; Visit Provider Family Medicine
DX: Z12.31 Encounter for screening mammogram for malignant neoplasm of breast (principal); E04.1 Nontoxic single thyroid nodule
CPT/HCPCS: 76536; 77063; 77067

== ENCOUNTER 2024-09-19 08:25 | Day surgery (SDC) | payer MEDICAID, SELFPAY ==
[2024-09-19] VITALS (9 sets, daily range): BP systolic 95–111; BP diastolic 66–74; PULSE 50–62; RESP 16; TEMP 36.1–36.8; O2SAT 94–100; BMI 44.9
[2024-09-19] MEDS: Lactated Ringers 1,000 ML 15 ML IV (09:03)
[2024-09-19 09:14] LABS: Internal QC Validated? YES +Cl - CLEAR BKGD; Pregnancy, Urine Negative Negative; Record Kit Lot#,Urine Preg 0000947241
--- NOTE | 2024-09-19 09:17 | PCM.PRE.AN2 ---
ASA Classification* ASA Classification ASA Classification: 3 Assessment & Plan Anesthesia* Anesthesia Assessment Anesthesia Assessment: Discussed sedation and/or anesthesia options, risks, benefits, and alternatives with patient/parents/legal guardian/POA. Questions invited. The patient/parents/legal guardian/POA seems to understand and agrees to proceed with anesthesia plan. Reviewed the physical assessment, medical history, allergy history and patient home medications list prior to surgery/procedure/anesthetic and documented any changes. Performed airway and anesthesia risk assessments. Anesthesia Type Anesthesia Type: MAC Anesthesia Focused Assessment* Temperature: 97.4 F Pulse Rate: 60 Blood Pressure: 111/73 Respiratory Rate: 16 Pulse Ox: 94 Airway Assessment Mouth opens: >3 cm Mallampati Score: II Labs Anesthesia Preop lab: CBC WBC 5.8 K/mm3 (4.4-11.0) 08/12/24 14:40 08/12/24 RBC 4.27 M/mm3 (4.2-5.4) 08/12/24 14:40 08/12/24 Hgb 11.5 g/dL (12.0-15.0) L 08/12/24 14:40 08/12/24 Hct 37.0 % (37-47) 08/12/24 14:40 08/12/24 Plt Count 310 K/mm3 (150-450) 08/12/24 14:40 08/12/24 CHEMISTRY Potassium 4.1 mmol/L (3.3-5.1) 08/12/24 14:40 08/12/24 Sodium 137 mmol/L (133-145) 08/12/24 14:40 08/12/24 BUN 13 mg/dL (4-19) 08/12/24 14:40 08/12/24 Creatinine 0.92 mg/dL (0.70-1.20) 08/12/24 14:40 08/12/24 Glucose 101 mg/dL (70-99) H 08/12/24 14:40 08/12/24 TSH 1.43 uIU/mL (0.358-3.74) 03/19/17 09:44 03/19/17 COAG Urine Test Negative Negative 09/19/24 08:45 09/19/24 Pre-Assessment Diagnosis/Proposed Procedure Planned Operative Procedure(s): colonoscopy, egd Anesthesia History 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 When Was Last Pacemaker Check QUESTION #4 FULL TEXT: You/Your Family Experience fever (hyperthermia) with Anesthesia Last Oral Intake Last Oral intake: Last Oral Intake NPO since 21:00 09/19/24 08:53 Meds taken in AM with sips of No 09/19/24 08:53 water? Meds patient instructed to take am of surgery PONV PONV - counter dish carrier: PONV - counter dish carrier Female Yes 09/14/24 11:07 HX of Motion Sickness No 09/14/24 11:07 HX of N/V After Surgery No 09/14/24 11:07 Non-Smoker Yes 09/14/24 11:07 Duration of Surgery greater No 09/14/24 11:07 than 60 minutes Number of Risk Factors 2 09/14/24 11:07 PONV Score Moderate Risk 09/14/24 11:07 Height & Weight Height & Weight: Anesthesia: Height & Weight Height 5 ft 8 in 09/19/24 08:53 Weight: 134.1 kg 09/19/24 08:53 Body Mass Index (BMI) 44.9 09/19/24 08:53 Respiratory Assessment Respiratory Assessment - counter dish carrier: Respiratory Tract Infection Hx - counter dish carrier Hx Respiratory Tract Infection No 09/14/24 11:07 STOP Sleep Apnea STOP Sleep Apnea - counter dish carrier: STOP Sleep Apnea - counter dish carrier Hx Hypertension No 09/14/24 11:07 Hx Sleep Apnea No 09/14/24 11:07 CPAP BIPAP Do you snore loudly (louder No 09/14/24 11:07 than talking or can be heard Do you often feel tired/ No 09/14/24 11:07 fatigued/ sleepy during daytime? Has anyone observed you stop No 09/14/24 11:07 breathing during sleep? STOP Results Negative 09/14/24 11:07 QUESTION #5 FULL TEXT : Do you snore loudly (louder than talking or can be heard through closed doors)? 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 Specify any problems Hx of Preganancy in last 3 No 09/14/24 11:07 Months Nurse Filling Out Transfusion [email or web address] 09/14/24 11:07 & Questions: Date: 09/14/24 09/14/24 11:07 Time: 11:09 09/14/24 11:07 Patient unable to answer at this time (ie. confused, unrespo /Reproduction History /Reproductive History - counter dish carrier: /Reproductive Hx- counter dish carrier Hx Now No 09/14/24 11:07 Gestational Age (in weeks): EDC: Hx Hx Para Hx Section SAB No 09/14/24 11:07 Active Medications Active Medications: Current Medications Generic Name Dose Route Start Last Admin Trade Name Freq PRN Reason Stop Dose Admin Lactated Ringer's 1,000 mls @ 15 mls/hr 09/19/24 08:45 09/19/24 09:03 IV 15 mls/hr .Q48H ARAVIND Administration PFSH Medical History Wears contact lenses Colonoscopy planned Gastric reflux Screening for colon cancer Family history of colon cancer IGT (impaired glucose tolerance) Morbid obesity Allergic rhinitis Anxiety Home Medications ?Medication ?Instructions ?Recorded ?Last Taken ?Type fluticasone propionate 50 50 mcg intranasal QDAY PRN 03/20/17 Unknown History mcg/actuation nasal allergies spray,suspension (Flonase Allergy Relief) sertraline 100 mg tablet (Zoloft) 100 mg PO QDAY 03/20/17 09/18/24 History multivitamin 1 tab PO DAILY 03/12/23 Unknown History omeprazole 40 mg capsule,delayed 40 mg PO DAILY 03/12/23 09/18/24 History release cetirizine 10 mg tablet (24Hour 10 mg PO DAILY 09/14/24 Unknown History Allergy) montelukast 10 mg tablet 10 mg PO DAILY 09/14/24 Unknown History Allergy/AdvReac Type Severity Reaction Status Date / Time Penicillins Allergy Unknown A Verified 09/19/24 08:52 CHILD, UNKNOWN RXN iodine AdvReac Rash Verified 09/19/24 08:52 Family History Father Colon cancer Mother CVA (cerebral vascular accident) Hypertension Diabetes Heart disease Sister Seizures Surgical History S/P thyroid biopsy S/P wisdom tooth extraction S/P tonsillectomy Social History Smoking Status: Never smoker second hand exposure: No alcohol intake: never substance use type: does not use caffeine: No what type of physical activity do you participate in: none frequency: does not exercise seatbelt use: always Review of Systems (Anesthesia) ROS Narrative System reviewed and no additional complaints, except as documented.
--- NOTE | 2024-09-19 09:45 | EGD_PTH ---
PATIENT: LEDA FINE LOC: EN U#:[id number] AGE/SX: 49/F ROOM: RE09/19/[address]: Dr. Vinh Man MD : 1975 BED: DIS: 09/19/2024 SPEC #: [id number] RECD: 09/19/24 12:56 STATUS: PHYLLIS HANCOCK #: [id number] BRIANNA: 09/19/24 09:[address]: Vinh Man DEPT: SURGICAL PATHOLOGY RECD BY: Brian Pitts ENTERED: 09/19/24 13:26 SP TYPE: EGD BIOPSY PATTI DR: Dr. Elvis Tirado MD Tissues: A - Gastric mucous membrane B - Esophagus, NOS Procedures: Immunohistochemical Stains Surgery Specimen Level IV HEADER OPERATION: Colonoscopy, EGD, biopsy PRE-OP DIAGNOSIS: GERD, family history of colon cancer TISSUE SUBMITTED: A- Antrum biopsy, B- GE junction biopsy MICROSCOPIC DIAGNOSIS A. Gastric antrum, biopsy: - chronic gastritis with features of reactive gastropathy. - IHC negative for H.pylori organisms. B. GE junction, esophagus, biopsy: - benign squamous and columnar mucosa. - Negative for goblet cell metaplasia. - Negative for dysplasia. MICROSCOPIC DESCRIPTION Slides are reviewed. All matched controls reacted appropriately. These tests were developed and their performance characteristics determined by [facility]. They may not have been cleared or approved by the U.S. Food and Drug Administration. The FDA has determined that such clearance or approval is not necessary. The above immunohistochemical/dualISH markers are viewed by the Pathologist. GROSS DESCRIPTION A. Received in fixative is one container labeled with the patient's name and designated Antrum biopsy. The specimen consists of two irregular fragments of light jeong soft tissue that in aggregate measure 0.2 and 0.3 cm. The specimen is totally submitted in one cassette. B. Received in fixative is one container labeled with the patient's name and designated GE junction biopsy. The specimen consists of three irregular fragments of light jeong soft tissue that in aggregate measure 0.2 to 0.4 cm. The specimen is totally submitted in one cassette. BRIANNE/ 09/19/2024 CPT:06546g5,86679
--- NOTE | 2024-09-19 09:55 | PCM.HP.STD ---
HPI - General General Date of Admission: 09/19/24 Date of Service: 09/19/24 Chief Complaint: Colonoscopy HPI Narrative The patient is a 49-year-old female who is being seen today for EGD and colonoscopy. She does have a family history of colon cancer. Her father and her paternal grandmother both of colon cancer. She herself is never had colon polyps although her sister has had colon polyps. Her last colonoscopy was in 2018. She denies any new GI issues or complaints. She does also have chronic reflux disease and has been on omeprazole for about a year. She has never had an EGD as a baseline. [facility] Medical History Wears contact lenses Colonoscopy planned Gastric reflux Screening for colon cancer Family history of colon cancer IGT (impaired glucose tolerance) Morbid obesity Allergic rhinitis Anxiety Home Medications ?Medication ?Instructions ?Recorded ?Last Taken ?Type fluticasone propionate 50 50 mcg intranasal QDAY PRN 03/20/17 Unknown History mcg/actuation nasal allergies spray,suspension (Flonase Allergy Relief) sertraline 100 mg tablet (Zoloft) 100 mg PO QDAY 03/20/17 09/18/24 History multivitamin 1 tab PO DAILY 03/12/23 Unknown History omeprazole 40 mg capsule,delayed 40 mg PO DAILY 03/12/23 09/18/24 History release cetirizine 10 mg tablet (24Hour 10 mg PO DAILY 09/14/24 Unknown History Allergy) montelukast 10 mg tablet 10 mg PO DAILY 09/14/24 Unknown History Allergy/AdvReac Type Severity Reaction Status Date / Time Penicillins Allergy Unknown A Verified 09/19/24 08:52 CHILD, UNKNOWN RXN iodine AdvReac Rash Verified 09/19/24 08:52 Family History Father Colon cancer Mother CVA (cerebral vascular accident) Hypertension Diabetes Heart disease Sister Seizures Surgical History S/P thyroid biopsy S/P wisdom tooth extraction S/P tonsillectomy Social History Smoking Status: Never smoker second hand exposure: No alcohol intake: never substance use type: does not use caffeine: No what type of physical activity do you participate in: none frequency: does not exercise seatbelt use: always ROS Constitutional Constitutional: Reports systems reviewed and no addt'l complaints, except as documented Eyes Eyes: Reports systems reviewed and no addt'l complaints, except as documented ENT HEENT: Reports systems reviewed and no addt'l complaints, except as documented Cardiovascular Cardiovascular: Reports systems reviewed and no addt'l complaints, except as documented Respiratory/Chest Respiratory/Chest: Reports systems reviewed and no addt'l complaints, except as documented Gastrointestinal Gastrointestinal: Reports systems reviewed and no addt'l complaints, except as documented Genitourinary Genitourinary: Reports systems reviewed and no addt'l complaints, except as documented Vital Signs Vital Signs Vital Signs: 09/19/24 08:53 09/19/24 08:53 09/19/24 09:18 Temperature 97.4 F L 97.4 F L Temperature Source Temporal Pulse Rate 60 60 Respiratory Rate 16 16 Respiratory Pattern Normal Blood Pressure 111/73 111/73 Blood Pressure Mean 85 Blood Pressure Source Monitor Blood Pressure Position Semi-Fowlers Blood Pressure Location Left Arm Pulse Ox 94 94 Oxygen Delivery Method Room Air Weight Weight: 295 lb 10.238 oz Body Mass Index (BMI) 44.9 Physical Exam Const alert, oriented x3 and no apparent distress Results Lab / Micro Data Labs: Laboratory Results - last 24 hr 09/19/24 08:45: Urine Test Negative Assessment & Plan Assessment/Plan (1) GERD (gastroesophageal reflux disease): QUALIFIERS: Esophagitis presence: esophagitis presence not specified Qualified Code(s): K21.9 - Gastro-esophageal reflux disease without esophagitis (2) Family history of colon cancer: PLAN: Plan EGD and colonoscopy planned for this morning
--- NOTE | 2024-09-19 10:44 | OP.CCLET_ITS ---
09/19/2024 Elvis Tirado [address] [place] [address] Re : [facility] Tirado This procedure was performed on Thursday, September 19, 2024. My impressions and recommendations are as follows: Impressions : - Normal first portion of the duodenum and second portion of the duodenum. - No gross lesions in the entire stomach. Biopsied. - Normal esophagus. Biopsied. - The examination was otherwise normal. Recommendations : - Discharge patient to home (ambulatory). - High fiber diet. - Await pathology results. - Repeat upper endoscopy after studies are complete for surveillance. - Return to my office PRN. - Continue present medications. My findings are described in the full procedure note, which is enclosed. If I can be of further assistance, please feel free to contact me at . Sincerely, Vinh Man MD 09/19/2024 10:43:18 AM This report has been signed electronically.
--- NOTE | 2024-09-19 10:44 | OP.EGD_ITS ---
Patient Name: Danya Martinez Procedure Date: 09/19/2024 9:59 AM Date of : 1975 Age: 49 Procedure: Upper GI endoscopy Indications: Heartburn Providers: Vinh Man MD Referring MD: Elvis Tirado Medicines: Monitored Anesthesia Care Patient Profile: Refer to note in patient chart for documentation of history and physical. Patient has symptoms of chronic heartburn. Refer to note in patient chart for documentation of history and physical. Complications: No immediate complications. Estimated blood loss: Minimal. Procedure: Pre-Anesthesia Assessment: - Prior to the procedure, a History and Physical was performed, and patient medications and allergies were reviewed. The patient's tolerance of previous anesthesia was also reviewed. The risks and benefits of the procedure and the sedation options and risks were discussed with the patient. All questions were answered, and informed consent was obtained. Prior Anticoagulants: The patient has taken no anticoagulant or antiplatelet agents. ASA Grade Assessment: II - A patient with mild systemic disease. After reviewing the risks and benefits, the patient was deemed in satisfactory condition to undergo the procedure. After obtaining informed consent, the endoscope was passed under direct vision. Throughout the procedure, the patient's blood pressure, pulse, and oxygen saturations were monitored continuously. The Endoscope was introduced through the mouth, and advanced to the second part of duodenum. The upper GI endoscopy was accomplished without difficulty. The patient tolerated the procedure well. Moderate Sedation: See the other procedure note for documentation of moderate sedation with intraservice time. Scope In: 10:16:49 AM Scope Out: 10:21:10 AM Total Procedure Duration Time 0 hours 4 minutes 21 seconds Findings: The first portion of the duodenum and second portion of the duodenum were normal. No gross lesions were noted in the entire examined stomach. Biopsies were taken with a cold forceps for Helicobacter pylori testing. Estimated blood loss was minimal. The examined esophagus was normal. Mucosa was biopsied with a cold forceps for histology randomly at the gastroesophageal junction. Verification of patient identification for the specimen was done by the nurse using the patient's name, date and medical record number. Estimated blood loss was minimal. The exam was otherwise without abnormality. Impression: - Normal first portion of the duodenum and second portion of the duodenum. - No gross lesions in the entire stomach. Biopsied. - Normal esophagus. Biopsied. - The examination was otherwise normal. Recommendation: - Discharge patient to home (ambulatory). - High fiber diet. - Await pathology results. - Repeat upper endoscopy after studies are complete for surveillance. - Return to my office PRN. - Continue present medications. Procedure Code(s): --- Professional --- 21848, Esophagogastroduodenoscopy, flexible, transoral; with biopsy, single or multiple Diagnosis Code(s): --- Professional --- R12, Heartburn CPT copyright 2021 [employer]. All rights reserved. The codes documented in this report are preliminary and upon manager of production review may be revised to meet current compliance requirements. Vinh Man MD 09/19/2024 10:43:18 AM This report has been signed electronically. Number of Addenda: 0 Note Initiated On: 09/19/2024 9:59 AM
--- NOTE | 2024-09-19 10:45 | PCM.POST.ANE ---
Anesthesia: Postop Eval I Current Vital Signs Temperature: 98.2 F Pulse Rate: 62 Blood Pressure: 102/70 Respiratory Rate: 16 Pulse Ox: 98 Oxygen Delivery Method: Room Air Assessment Airway patent: Yes Spontaneous unlabored respirations: Yes Mental status: Asleep nausea: No Vomiting: No Anesthesia Complication: No Fluid Hydration Crystalloid volume administer (ml): 700 Total IV fluid infused: 700 Progress Note Anesthesia document: Postop Eval 1 completed: Yes
--- NOTE | 2024-09-19 10:47 | OP.COLON_ITS ---
Patient Name: Danya Martinez Procedure Date: 09/19/2024 10:21 AM Date of : 1975 Age: 49 Procedure: Colonoscopy Indications: Screening in patient at increased risk: Family history of 1st-degree relative with colorectal cancer Providers: Vinh Man MD Referring MD: Elvis Tirado Medicines: Monitored Anesthesia Care Patient Profile: Refer to note in patient chart for documentation of history and physical. Patient has symptoms of chronic heartburn. Refer to note in patient chart for documentation of history and physical. Last Colonoscopy: none. The patient's first colonoscopy is today. Complications: No immediate complications. Estimated blood loss: None. Procedure: Pre-Anesthesia Assessment: - Prior to the procedure, a History and Physical was performed, and patient medications and allergies were reviewed. The patient's tolerance of previous anesthesia was also reviewed. The risks and benefits of the procedure and the sedation options and risks were discussed with the patient. All questions were answered, and informed consent was obtained. Prior Anticoagulants: The patient has taken no anticoagulant or antiplatelet agents. ASA Grade Assessment: II - A patient with mild systemic disease. After reviewing the risks and benefits, the patient was deemed in satisfactory condition to undergo the procedure. - Prior to the procedure, a History and Physical was performed, and patient medications and allergies were reviewed. The patient's tolerance of previous anesthesia was also reviewed. The risks and benefits of the procedure and the sedation options and risks were discussed with the patient. All questions were answered, and informed consent was obtained. Prior Anticoagulants: The patient has taken no anticoagulant or antiplatelet agents. ASA Grade Assessment: II - A patient with mild systemic disease. After reviewing the risks and benefits, the patient was deemed in satisfactory condition to undergo the procedure. After I obtained informed consent, the scope was passed under direct vision. Throughout the procedure, the patient's blood pressure, pulse, and oxygen saturations were monitored continuously. The colonoscope was introduced through the anus and advanced to the cecum, identified by appendiceal orifice and ileocecal valve. The ileocecal valve, appendiceal orifice, and rectum were photographed. The entire colon was well visualized. The colonoscopy was performed without difficulty. The patient tolerated the procedure well. The quality of the bowel preparation was adequate. Moderate Sedation: See the other procedure note for documentation of moderate sedation with intraservice time. Scope In: 10:24:56 AM Scope Withdrawal Time 0 hours 6 minutes 2 seconds Scope Out: 10:36:27 AM Total Procedure Duration Time 0 hours 11 minutes 31 seconds Findings: The perianal and digital rectal examinations were normal. Internal hemorrhoids were found during retroflexion. The hemorrhoids were mild. The exam was otherwise without abnormality on direct and retroflexion views. Impression: - Internal hemorrhoids. - The examination was otherwise normal on direct and retroflexion views. - No specimens collected. Recommendation: - Discharge patient to home (ambulatory). - High fiber diet. - Repeat colonoscopy in 7 years for screening purposes. - Return to my office PRN. - Continue present medications. Procedure Code(s): --- Professional --- G0105, Colorectal cancer screening; colonoscopy on individual at high risk Diagnosis Code(s): --- Professional --- K64.8, Other hemorrhoids Z80.0, Family history of malignant neoplasm of digestive organs CPT copyright 2021 [employer]. All rights reserved. The codes documented in this report are preliminary and upon health care consultant review may be revised to meet current compliance requirements. Vinh Man MD 09/19/2024 10:46:39 AM This report has been signed electronically. Number of Addenda: 0 Note Initiated On: 09/19/2024 10:21 AM
--- NOTE | 2024-09-19 10:47 | OP.CCLET_ITS ---
09/19/2024 Elvis Tirado [address] [place] [address] Re : Colonoscopy procedure for Danya [facility] Dear Dr. Tirado This procedure was performed on Thursday, September 19, 2024. My impressions and recommendations are as follows: Impressions : - Internal hemorrhoids. - The examination was otherwise normal on direct and retroflexion views. - No specimens collected. Recommendations : - Discharge patient to home (ambulatory). - High fiber diet. - Repeat colonoscopy in 7 years for screening purposes. - Return to my office PRN. - Continue present medications. My findings are described in the full procedure note, which is enclosed. If I can be of further assistance, please feel free to contact me at . Sincerely, Vinh Man MD 09/19/2024 10:46:39 AM This report has been signed electronically.
--- NOTE | 2024-09-19 11:24 | PCM.POSTANE2 ---
Anesthesia Postop Eval I Sum Postop Eval Completion status Anesthesia document: Postop Eval 1 completed: Yes Anesthesia Postop Eval I Summary Anesthesia Postop Eval I Summary: Anesthesia Postop Eval I: Assessment Summary Airway patent Yes 09/19/24 10:46 [email or web address] Spontaneous unlabored Yes 09/19/24 10:46 [email or web address] respirations Mental status Asleep 09/19/24 10:46 [email or web address] nausea No 09/19/24 10:46 [email or web address] Vomiting No 09/19/24 10:46 [email or web address] Anesthesia Postop Eval I: Fluid Summary Crystalloid volume administer 700 09/19/24 10:46 [email or web address] (ml) Colloids volume administered ( ml) Blood Product volume administered (ml) Total IV fluid infused 700 09/19/24 10:46 [email or web address] Anesthesia Postop Eval I: Summary Notes Anesthesia Complication No 09/19/24 10:46 [email or web address] Anesthesia Complication Comment: Post-operative progress note Anesthesia: Postop Eval II Evaluation Mental status: Awake Pain Level: 0 nausea: No Vomiting: No
== END 2024-09-19 11:34 | disposition home or self-care (01) ==
LOC: EN 08:26 → AC 08:27
PROVIDERS: Anesthesiology; PCP Family Medicine; Referring Provider Family Medicine; Visit Provider Surgery
PROC: 0DJD8ZZ Inspection of Lower Intestinal Tract, Via Natural or Artificial Opening Endoscopic (ICD-10-PCS; CPT 45378; principal; 2024-09-19 09:40)
DX: Z12.11 Encounter for screening for malignant neoplasm of colon (principal); K21.9 Gastro-esophageal reflux disease without esophagitis; K64.8 Other hemorrhoids; Z80.0 Family history of malignant neoplasm of digestive organs; Z79.899 Other long term (current) drug therapy; K29.50 Unspecified chronic gastritis without bleeding
CPT/HCPCS: 43239; 45378; 81025; 88305; 88342; J2405

== ENCOUNTER → 2024-10-20 | Outpatient (CLI) | payer MEDICAID, SELFPAY ==
[2024-10-25 13:08] LABS: HPV APTIMA, High Risk Positive (Negative)
== END | disposition home or self-care (01) ==
LOC: LABSPEC 11:48
PROVIDERS: PCP Family Medicine; Visit Provider Nurse Practitioner Family
DX: Z12.4 Encounter for screening for malignant neoplasm of cervix (principal)
CPT/HCPCS: 87624; 88175; G0145

== ENCOUNTER → 2024-11-23 | Outpatient (CLI) | payer MEDICAID, SELFPAY ==
[2024-11-23 13:19] LABS: HIV Nonreactive (Nonreactive); Hepatitis B Surface Antigen Nonreactive (Nonreactive); Hepatitis C Antibody Nonreactive (Nonreactive); Syphilis Antibodies Nonreactive (Nonreactive)
[2024-11-24 21:07] LABS: Chlamydia By Nucleic Acid AMP Negative (Negative); Gonococcus By Nucleic Acid AMP Negative (Negative)
== END | disposition home or self-care (01) ==
LOC: BWCLAB 08:48
PROVIDERS: PCP Family Medicine; Referring Provider Nurse Practitioner Family; Visit Provider Nurse Practitioner Family
DX: Z11.3 Encounter for screening for infections with a predominantly sexual mode of transmission (principal); N89.8 Other specified noninflammatory disorders of vagina
CPT/HCPCS: 36415; 86703; 86780; 86803; 87070; 87205; 87340; 87491; 87591

== ENCOUNTER → 2024-12-05 | Outpatient (CLI) | payer MEDICAID, SELFPAY ==
--- NOTE | 2024-12-05 | CER_PTH ---
PATIENT: LEDA FINE LOC: [facility] U#:[id number] AGE/SX: 49/F ROOM: RE12/05/[address]: Dr. Elvis Tirado MD : 1975 BED: DIS: 12/05/2024 SPEC #: [id number] RECD: 12/05/24 17:18 STATUS: PHYLLIS HANCOCK #: [id number] BRIANNA: 12/05/24 00:[address]: Sury Tellez DEPT: SURGICAL PATHOLOGY RECD BY: Brian Pitts ENTERED: 12/06/24 10:40 SP TYPE: CERV OTHR DR: Dr. Elvis Tirado MD Tissues: A - Uterine cervix, NOS B - Endocervical Procedures: Immunohistochemical Stains Surgery Specimen Level IV HEADER OPERATION: Colposcopy PRE-OP DIAGNOSIS: ASCUS, HPV+ TISSUE SUBMITTED: A- Cervical tissue - 6o'clock, B- ECC MICROSCOPIC DIAGNOSIS A. Cervix, 6 o'clock, colposcopic biopsy: * Squamous and endocervical mucosa with reactive changes and marked active chronic inflammation. B. Cervix, endocervix, colposcopy: * Atypical squamous metaplasia suspicious for dysplasia, with marked active chronic inflammation. * IHC for p16 is negative for block positivity - see note. * Note: Features diagnostic for high grade dysplasia are not demonstrated in these sections. MICROSCOPIC DESCRIPTION Slides are reviewed. All matched controls reacted appropriately. These tests were developed and their performance characteristics determined by [facility]. They may not have been cleared or approved by the [place] Food and Drug Administration. The FDA has determined that such clearance or approval is not necessary. The above immunohistochemical markers and/or special stains have been reviewed by the Pathologist. GROSS DESCRIPTION Received in 2 formalin containers labeled with the patient's name and date of . Designated as: A. "6 o'clock" is a 0.4 x 0.3 x 0.1 cm jeong tissue fragment and minimal mucoid material entirely submitted in 1 cassette. B. "ECC" are scant flecks of jeong tissue and mucoid material, collectively measuring approximately 0.5 x 0.4 x <0.1 cm in aggregate entirely submitted in 1 cassette. The entirety of the specimen may not survive processing. AK 12/06/2024 CPT:23684r3,38614
== END | disposition home or self-care (01) ==
LOC: LABSPEC 17:18
PROVIDERS: PCP Family Medicine; Visit Provider Family Medicine
DX: R87.610 Atypical squamous cells of undetermined significance on cytologic smear of cervix (ASC-US) (principal); N72 Inflammatory disease of cervix uteri
CPT/HCPCS: 88305; 88342

== ENCOUNTER → 2025-03-15 | Outpatient (CLI) | payer MEDICAID, SELFPAY ==
--- OUTSIDE RECORDS SUMMARY | 2025-03-15 10:32 | XMS RPT_ITS | CCD ---
Author Organization [facility] Care Team Providers Care Parts Representative Name Role Phone Mika Coughlin Primary Care Provider [phone] Dr. Mika Coughlin MD Primary Care Provider Celestino ALLRED, Dr. Mika Chandler Attending Provider Dr. Mika Coughlin MD Referring Provider Donovan ALLRED, Dr. Vinh Ling Attending Provider Dr. Vinh Man MD Other Provider Rosa Maria SFDC CONSULTANT-CPeace Attending Provider Rosa Maria SOL-CPeace Referring Provider Dr. Mika Coughlin MD Primary Care Physician Dr. Mika Coughlin MD Attending Physician Donovan ALLRED, Dr. Vinh Ling Attending Physician Dr. Vinh Man MD Nurse Practitioner Rosa Maria SOL-Peace Roman Attending Physician Dr. Mika Coughlin MD Primary Care Physician Dr. Mika Coughlin MD Attending Physician Michelle ALLRED, Dr. Massey Attending Physician Dr. Mika Coughlin MD Primary Care Physician Dr. Mika Coughlin MD Referring Provider Dr. Vinh Man MD Attending Physician Schinner, Mika E Referring Unavailable Shilpa Martinez Attending Unavailable Schinner, Mika E Primary Care Unavailable Schinner, Mika E Primary Care Unavailable Schinner, Mika E Attending Unavailable Schinner, Mika E Primary Care Unavailable Peace Crane Attending Unavailable Peace Crane Referring Unavailable Schinner, Mika E Primary Care Unavailable Peace Crane Attending Unavailable Schinner, Mika Ramesh Referring Unavailable Schinner, Mika E Attending Unavailable Schinner, Mika E Primary Care Unavailable Schinner, Mika E Attending Unavailable Schinner, Mika E Primary Care Unavailable Schinner, Mika E Referring Unavailable Schinner, Mika E Primary Care Unavailable Vinh Man Attending Unavailable Schinner, Mika E Primary Care Unavailable Peace Crane Attending Unavailable Schinner, Mika E Referring Unavailable Schinner, Mika E Primary Care Unavailable Peace Crane Attending Unavailable Schinner, Mika E Referring Unavailable Schinner, Mika E Referring Unavailable Schinner, Mika E Primary Care Unavailable Vinh Man Attending Unavailable Schinner, Mika E Primary Care Unavailable Vinh Man Consulting Unavailable Vinh Man Attending Unavailable Schinner, Mika E Referring Unavailable Jesus SFDC CONSULTANTNguyen Attending Unavailable Schinner, Mika E Primary Care Unavailable Schinner, Mika E Referring Unavailable MARLENI IRIZARRY Referring Unavailable SCHINNER, MIKA E Primary Care Unavailable SCHINNER, MIKA E Primary Care Unavailable SYDNI GATES Attending Unavailable SYDNI GATES Referring Unavailable SCHINNER, MIKA E Primary Care Unavailable SCHINNER, MIKA E Primary Care Unavailable INES BUTLER Attending Unavailable SCHINNER, MIKA E Primary Care Unavailable GUIDO STRONG Attending Unavailable SCHINNER, MIKA E Primary Care Unavailable SCHINNER, MIKA E Primary Care Unavailable Allergies Allergy Classification Reported Allergen(s) Allergy Type Date of Onset Reaction(s) Facility (14 sources) Iodine Drug Allergy 12-21-2020 Rash [facility] Comment on above: TOPICAL IODINE (20 sources) Penicillins; Translations: [Penicillins] Allergy to substance 12-21-2020 Unknown [facility] Work Phone: (1 source) Iodine Drug Allergy 12-05-2024 [facility] Repository Medications Current Medications Medication Drug Class(es) Dates Sig (Normalized) Sig (Original) busPIRone hydrochloride 7.5 mg oral tablet (10 sources) Start: 07-29-2020 take 1 tablet by mouth twice daily busPIRone (BUSPAR) 7.5 mg tablet Take 1 tablet by mouth twice daily. 07/29/2020 Active Comment on above: Take 1 tablet by dara twice daily. cetirizine hydrochloride 10 mg oral tablet (7 sources) Histamine-1 Receptor Antagonist Start: 09-14-2024 take 1 tablet by mouth once daily doxycycline hyclate 100 mg oral tablet (14 sources) Tetracycline-clas s Drug Start: 07-22-2024 End: 07-29-2024 take 1 tablet by mouth twice daily doxycycline (VIBRA-TABS) 100 mg tablet Indications: Bacterial pneumonia Take 1 tablet by mouth two times a day for 7 days. 14 tablet 07/22/2024 07/29/2024 Active Start: 01-28-2024 End: 02-04-2024 take 1 tablet by mouth twice daily doxycycline monohydrate 100 mg tablet Take 1 tablet by mouth two times a day for 7 days. 14 tablet 01/28/2024 02/04/2024 Active Start: 03-06-2022 End: 03-12-2023 take 1 capsule by mouth twice daily Doxycycline Hyclate 100 mg capsule Discontinued 100 mg PO TWICE A DAY March 06, 2022 1:00am March 12, 2023 2:43pm fluticasone propionate 0.05 mg/actuat metered dose nasal spray (20 sources) Corticosteroid Start: 07-09-2021 take 2 spray(s) by mouth once daily fluticasone (FLONASE) 50 mcg/actuation nasal spray Indications: URI, acute Use 2 Sprays in each nostril once daily. Rinse mouth after use. 1 Each 1 07/09/2021 Active Start: 07-29-2020 take 1 spray(s) nasa l route once daily fluticasone (FLONASE) 50 mcg/actuation nasal spray Use 1 [place] in each nostril once daily. 07/29/2020 Active Start: 03-20-2017 Comment on above: Use 1 [place] in each nostril once daily. Use 2 Sprays in each nostril once daily. Rinse mouth after use. loratadine 10 mg oral tablet (1 source) Start: End: 3 take 1 tablet by mouth once daily loratadine (CLARITIN) 10 mg tablet Take 1 tablet by mouth once daily. 30 tablet 0 05/07/2022 06/06/2022 Active Comment on above: Take 1 tablet by dara once daily. montelukast 10 mg oral tablet (14 sources) Leukotriene Receptor Antagonist Start: 5 take 1 tablet by mouth once daily Start: 01-26-2023 montelukast (S INGULAIR) 10 mg tablet 01/26/2023 Active Multivitamin tablet (10 sources) Start: 03-12-2023 Start: 03-12-2023 Multivitamin t ablet Active 1 {tbl} PO DAILY March 12, 2023 1:00am naproxen 500 mg oral tablet (13 sources) Nonsteroidal Anti-inflammatory Drug Start: 08-08-2020 take 1 tablet by mouth every twelve hours as needed naproxen (NAPROSYN) 500 mg tablet Take 1 tablet by mouth twice daily as needed (pain/inflammation, take with food.). 20 tablet 08/08/2020 Active Start: 03-20-2017 Naproxen Activ e 250 MG PO every 6 to 12 hours March 20, 2017 1:00am Comment on above: Take 1 tablet by dara twice daily as needed (pain/inflammation, take with food.). omeprazole 40 mg delayed release oral capsule (17 sources) Proton Pump Inhibitor Start: 03-12-2023 take 1 capsule by mouth once daily Start: 01-15-2023 omeprazole ([place] ILOSEC) 20 mg capsule 01/15/2023 Active predniSONE 10 mg oral tablet (1 source) Start: 07-22-2024 End: 07-31-2024 predniSONE (DELTASONE) 10 mg tablet Indications: Acute cough Take 4 tabs daily for 3 days, then 2 tabs daily for 3 days, then 1 tab daily for 3 days with food. 21 tablet 07/22/2024 07/31/2024 Active sertraline 100 mg oral tablet (20 sources) Serotonin Reuptake Inhibitor Start: 03-20-2017 take 1 tablet by mouth once daily Comment on above: Take 1 tablet by dara once daily. triamcinolone acetonide 1 mg/ml topical cream (1 source) Corticosteroid Start: 05-07-2022 End: 05-14-2022 triamcinolone acetonide (KENALOG) 0.1 % cream Apply 1 application to affected area twice daily for 7 days. Apply sparingly to area for rash/itching. 45 g 0 05/07/2022 05/14/2022 Active Comment on above: Apply 1 application to affected area twice daily for 7 days. Apply sparingly to area for rash/itching. Completed/Discontinued Medications Medication Drug Class(es) Dates Sig (Normalized) Sig (Original) [id number] 200 actuat albuterol 0.09 mg/actuat metered dose inhaler (7 sources) beta2-Adrenergic Agonist Start: 09-14-2024 End: 09-14-2024 Albuterol Sulfate 90 mcg/actuation HFA aerosol inhaler Discontinued 1 NMA INHALATION 3 TIMES DAILY NEEDED as needed for bronchospasm September 14, 2024 12:00am September 14, 2024 11:06am azithromycin 250 mg oral tablet (20 sources) Macrolide Antimicrobial Start: 07-30-2023 End: 08-15-2024 take 2-5 tablets by mouth once daily Azithromycin 250 mg tablet Discontinued 0 PO .COMPLEX 6 0 July 30, 2023 12:00am August 15, 2024 10:11am take 500 mg today (day 1), then 250 mg for 4 days (days 2-5) PO Start: 12-21-2020 End: 02-19-2022 take 2-5 tablets by mouth once daily Azithromycin (Zithromax Z-Jorge) 250 mg tablet Discontinued 0 PO .COMPLEX 6 0 December 21, 2020 12:00am February 19, 2022 1:24pm take 500 mg today (day 1), then 250 mg for 4 days (days 2-5) PO 21 day ethinyl estradiol 0.089318 mg/hr / etonogestrel 0.005 mg/hr vaginal system (14 sources) Progestin, Estrogen Start: 02-01-2018 End: 09-14-2024 Etonogestrel-Ethinyl Estradiol (Nuvaring) 0.12-0.015 mg/24 hr ring Discontinued 1 NMA VAGINAL every 4 weeks 03 27February 01, 2018 1:00am September 14, 2024 11:05am leave in place for 4 weeks, remove for menses and insert new one 1 week later Start: 02-01-2018 Etonogestrel-E thinyl Estradiol (Nuvaring) 0.12-0.015 mg/24 hr ring Active 1 VAG RING VAGINAL every 4 weeks February 01, 2018 12:00am leave in place for 4 weeks, remove for menses and insert new one 1 week later methylPREDNISolone 4 mg oral tablet (10 sources) Corticosteroid Start: 07-30-2023 End: 08-05-2023 take 1 tablet by mouth once Methylprednisolone (Medrol (Jogre)) 4 mg tablets,dose pack Discontinued 4 mg PO per package directions 21 6 0 July 30, 2023 12:00am August 04, 2023 12:00am August 05, 2023 12:07am metroNIDAZOLE 500 mg oral tablet (3 sources) Nitroimidazole Antimicrobial Start: 11-23-2024 End: 11-30-2024 take 1 tablet by mouth twice daily Metronidazole 500 mg tablet Discontinued 500 mg PO TWICE A DAY 14 7 0 November 23, 2024 12:00am November 29, 2024 12:00am November 30, 2024 12:08am oseltamivir 75 mg oral capsule (11 sources) Neuraminidase Inhibitor Start: 02-19-2022 End: 02-24-2022 take 1 capsule by mouth every twelve hours Oseltamivir (Tamiflu) 75 mg capsule Discontinued 75 mg PO Q12H 10 5 0 February 19, 2022 1:00am February 23, 2022 1:00am February 24, 2022 1:03am Problems Active Problems Problem Classification Problem Date Documented Date Episodic/Chronic Anxiety disorders (14 sources) Anxiety; Translations: [Anxiety disorder, unspecified] 04-10-2017 Chronic Cancer of cervix (1 source) Atypical squamous cells of undetermined significance on cytologic smear of cervix (ASC-US); Translations: [Atypical squamous cells of undetermined significance on cytologic smear of cervix (ASC-US)] Onset: 12-05-2024 Episodic Diabetes mellitus without complication (14 sources) Impaired glucose tolerance; Translations: [Impaired glucose tolerance (oral)] 04-10-2017 Episodic Disorders of teeth and jaw (14 sources) History of surgical procedure on mouth; Translations: [Other dental procedure status] 04-10-2017 Episodic E Codes: Natural/environment (1 source) Insect bite - wound; Translations: [Bitten or stung by nonvenomous insect and other nonvenomous arthropods, initial encounter] Episodic Esophageal disorders (20 sources) Gastroesophageal reflux disease; Translations: [Gastro-esophageal reflux disease without esophagitis] Onset: 08-15-2024 03-12-2023 Chronic Immunizations and screening for infectious disease (12 sources) At risk of sexually transmitted infection ; Translations: [Contact with and (suspected) exposure to infections with a predominantly sexual mode of transmission] Onset: 11-30-2024 11-23-2024 Episodic Influenza (11 sources) Influenza due to Influenza A virus; Translations: [Influenza due to other identified influenza virus with other respiratory manifestations] 02-19-2022 Episodic Menstrual disorders (11 sources) Irregular periods; Translations: [Irregular menstruation, unspecified] 10-20-2024 Chronic Mycoses (1 source) Candidal stomatitis; Translations: [Thrush] Onset: 12-11-2024 Episodic Open wounds of extremities (1 source) Open wound of left lower leg; Translations: [Unspecified open wound, left lower leg, initial encounter] 01-28-2024 Episodic Other connective tissue disease (1 source) Pain in right foot; Translations: [Pain in right foot] 01-28-2024 Episodic Other injuries and conditions due to external causes (11 sources) Superficial laceration; Translations: [Other injury of unspecified body region, initial encounter] 03-14-2022 Episodic Other lower respiratory disease (2 sources) Cough; Translations: [Acute cough] 07-22-2024 Episodic Other nutritional; endocrine; and metabolic disorders (14 sources) Morbid obesity; Translations: [Morbid (severe) obesity due to excess calories] 04-10-2017 Chronic Other screening for suspected conditions (not mental disorders or infectious disease) (20 sources) Patient encounter status; Translations: [Encounter for screening for malignant neoplasm of colon] Onset: 10-13-2024 08-15-2024 Episodic Other skin disorders (10 sources) Subungual hematoma 03-14-2022 Episodic Other upper respiratory disease (14 sources) Allergic rhinitis; Translations: [Allergic rhinitis, unspecified] 04-10-2017 Chronic Other upper respiratory infections (16 sources) Acute sinusitis; Translations: [Acute sinusitis, unspecified] Onset: 01-23-2025 Episodic Otitis media and related conditions (1 source) Unspecified Eustachian tube disorder, bilateral; Translations: [Dysfunction of both eustachian tubes] Onset: 01-23-2025 Episodic Residual codes; unclassified (20 sources) Family history of cancer of colon; Translations: [Family history of malignant neoplasm of digestive organs] 04-10-2017 Episodic Comment on above: Father Residual codes; unclassified (11 sources) Past history of procedure; Translations: [Other specified postprocedural states] 04-22-2017 Episodic Residual codes; unclassified (11 sources) Abnormal cytology findings; Translations: [Other nonspecific abnormal findings] 10-25-2024 Episodic Comment on above: colp colp; RTO on 12/05 fo r colposcopy. Residual codes; unclassified (2 sources) Family history of malignant neoplasm of digestive organs; Translations: [Family history of malignant neoplasm of digestive organs] Onset: 08-15-2024 Episodic Sexually transmitted infections (not HIV or hepatitis) (1 source) Cervical high risk human papillomavirus (HPV) DNA test positive; Translations: [Cervical high risk human papillomavirus (HPV) DNA test positive] Onset: 12-16-2024 Episodic Superficial injury; contusion (11 sources) Contusion of finger; Translations: [Contusion of unspecified finger without damage to nail, initial encounter] 03-14-2022 Episodic Unclassified (1 source) Acute cough; Translations: [Acute cough] Onset: 07-22-2024 Viral infection (1 source) Viral disease; Translations: [Viral infection, unspecified] 02-21-2023 Episodic Past or Other Problems Problem Classification Problem Date Documented Da te Episodic/Chronic Deficiency and other anemia (1 source) Anemia, unspecified; Translations: [Anemia, unspecified] Onset: 08-16-2024 Episodic E Codes: Fall (3 sources) Fall (on) (from) other stairs and steps, initial encounter; Translations: [Accidental fall on or from other stairs or steps] Onset: 01-28-2024 01-28-2024 Episodic Other connective tissue disease (1 source) Pain in right foot; Translations: [Foot pain, right] Onset: 01-28-2024 Episodic Pneumonia (except that caused by tuberculosis or sexually transmitted disease) (2 sources) Bacterial pneumonia; Translations: [Unspecified bacterial pneumonia] Onset: 07-22-2024 07-22-2024 Episodic Unclassified (1 source) Subungual hematoma; Translations: [Subungual hematoma] 03-14-2022 Results Test Name Value Interpretation Reference Range Facility [facility] 01-23-2025 CNOV Office Visit ([facility]) DANYA MARTINEZ ([id number]) 1975 F Date Time Provider Department 01/23/25 4:00 PM GUIDO STRONG During your visit today, we recorded the following information about you: Temperature Pulse Respiration Blood pressure 96.9 degrees 76/minute 16/minute 132/80 Weight 135.8 kg Guido Strong PA-C 01/23/2025 4:22 PM Signed [facility] Subjective Danya Martinez is a 49 year old female. Patient presents with: Sinus Problem: sinus pressure, drainage, headache and cough x 4 days Patient is a 49-year-old female who complains of congestion, ear pressure and cough that she has been experiencing for the past 4 days. Patient denies fever, chills or myalgia. Patient states she initially developed a sore throat which has since resolved. Patient has no history of asthma or COPD and does not smoke. Patient is taking [id number] medications with no significant improvement in her symptoms. Patient reports that her sinus congestion and cough are worse at night. Sinus Problem Associated symptoms include congestion, coughing and a sore throat. Review of Systems HENT: Positive for congestion, ear pain, postnasal drip, rhinorrhea, sinus pressure and sore throat. Respiratory: Positive for cough. All other systems reviewed and are negative. Objective BP 132/80 Pulse 76 Temp 36.1 ?C (96.9 ?F) Resp 16 Wt 135.8 kg (299 lb 6.2 oz) LMP 12/08/2024 (Approximate) SpO2 96% Physical Exam Vitals and nursing note reviewed. Constitutional: Appearance: Normal appearance. She is normal weight. HENT: Head: Normocephalic and atraumatic. Right Ear: Tympanic membrane, ear canal and external ear normal. Left Ear: Tympanic membrane, ear canal and external ear normal. Nose: Congestion present. Mouth/Throat: Mouth: Mucous membranes are moist. Pharynx: Oropharynx is clear. No oropharyngeal exudate or posterior oropharyngeal erythema. Eyes: Extraocular Movements: Extraocular movements intact. Conjunctiva/sclera: Conjunctivae normal. Pupils: Pupils are equal, round, and reactive to light. Cardiovascular: Rate and Rhythm: Normal rate and regular rhythm. Pulses: Normal pulses. Heart sounds: Normal heart sounds. Pulmonary: Effort: Pulmonary effort is normal. Breath sounds: Normal breath sounds. Musculoskeletal: Cervical back: Normal range of motion and neck supple. Skin: General: Skin is warm and dry. Capillary Refill: Capillary refill takes less than 2 seconds. Neurological: General: No focal deficit present. Mental Status: She is alert and oriented to person, place, and time. Psychiatric: Mood and Affect: Mood normal. Behavior: Behavior normal. Thought Content: Thought content normal. Judgment: Judgment normal. MDM Physical exam findings as noted above. Patient was provided with prescriptions for prednisone 20 mg and Tessalon 100 mg. Supportive care was discussed and the patient expresses excellent understanding of same. CLINICAL IMPRESSION: Acute URI; ETD Bilateral Ears ASSESSMENT/PLAN: 1. Acute URI - ICD9: 465.9, ICD10: J06.9 (primary diagnosis) - BENZONATATE 100 MG CAPSULE 2. Dysfunction of both eustachian tubes - ICD9: 381.81, ICD10: H69.93 - PREDNISONE 20 MG TABLET MDM Risk of Complications, Morbidity, and/or Mortality Presenting problems: low Diagnostic procedures: low Management options: kendall Strong PA-C Allergies As of Date: 01/23/2025 Noted Allergy Reaction PENICILLINS 07/09/2021 16 - Unknown Date Reviewed: 01/23/2025 Reviewed by: Zoya Escobedo MA - Fully Assessed Reason for Visit: Sinus Problem [99] Cmt: sinus pressure, drainage, headache and cough x 4 days Primary Visit Diagnosis:Acute URI [J06.9] Other Visit Diagnosis:Dysfunction of both eustachian tubes [H69.93] Order(s):benzonatate (TESSALON PERLE) 100 mg capsuleTake 1 capsule by mouth three times a day as needed for cough for up to 7 days.Disp: 21 capsuleRfl: 0 predniSONE (DELTASONE) 20 mg tabletTake 1 tablet by mouth two times a day for 5 days.Disp: 10 tabletRfl: 0 Prescriptions as of 01/23/2025 - benzonatate (TESSALON PERLE) 100 mg capsule Take 1 capsule by mouth three times a day as needed for cough for up to 7 days. - predniSONE (DELTASONE) 20 mg tablet Take 1 tablet by mouth two times a day for 5 days. - montelukast (SINGULAIR) 10 mg tablet - omeprazole (PRILOSEC) 20 mg capsule - fluticasone (FLONASE) 50 mcg/actuation nasal spray Use 2 Sprays in each nostril once daily. Rinse mouth after use. - busPIRone (BUSPAR) 7.5 mg tablet Take 1 tablet by mouth twice daily. - fluticasone (FLONASE) 50 mcg/actuation nasal spray Use 1 [place] in each nostril once daily. - sertraline (ZOLOFT) 100 mg tablet Take 1 tablet by mouth once daily. - naproxen (NAPROSYN) 500 mg tablet Take 1 tablet by mouth twice daily as needed (pain/inflammation, ta (more content not included)... Normal [facility] Surgical pathology reportOrd ered By: Radha Faust on [facility]-12-[facility]24 [facility] Office Visit ([facility]) DANYA MARTINEZ ([id number]) 1975 F Date Time Provider Department 12/11/24 10:30 AM INES BUTLER During your visit today, we recorded the following information about you: Temperature Pulse Respiration Blood pressure 97 degrees 60/minute 20/minute 114/74 Weight Last Period 137 kg 12/08/24 Ines Butler APRN.[employer]ANGER 12/11/2024 10:58 AM Signed [facility] Nidia Martinez is a 49 year old female. Patient presents with: Mouth/Lip Problem: Mouth is sore, foul taste in mouth, states she just finished atb x and has had sore mouth since, states possible thrush Mouth/Lip Problem The patient is a 49-year-old female presenting with oral thrush. Oral Thrush: - White coating on tongue extending to uvula and tonsils. - Associated xerostomia, paresthesia, and halitosis. - Recent antibiotic use for a UTI. - Denies dysphagia; reports altered taste, especially with sugary foods. 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 Review of Systems Ears/Nose/Mouth/Throa t: (+) oral white coating, (+) oral dryness, (+) oral tingling, (+) halitosis, (+) dysgeusia No past medical history on file. No past surgical history on file. ALLERGIES Penicillins MEDICATIONS omeprazole (PRILOSEC) 20 mg capsule fluticasone (FLONASE) 50 mcg/actuation nasal spray Use 1 [place] in each nostril once daily. sertraline (ZOLOFT) 100 mg tablet Take 1 tablet by mouth once daily. nystatin (MYCOSTATIN) 100,000 unit/mL suspension Take 5 mL by mouth four times daily for 14 days. Swish and swallow. fluconazole (DIFLUCAN) 150 mg tablet Take 1 tablet by mouth one time only for 1 dose. montelukast (SINGULAIR) 10 mg tablet fluticasone (FLONASE) 50 mcg/actuation nasal spray Use 2 Sprays in each nostril once daily. Rinse mouth after use. (Patient not taking: Reported on 01/28/2024) busPIRone (BUSPAR) 7.5 mg tablet Take 1 tablet by mouth twice daily. (Patient not taking: Reported on 05/07/2022) naproxen (NAPROSYN) 500 mg tablet Take 1 tablet by mouth twice daily as needed (pain/inflammation, take with food.). (Patient not taking: Reported on 07/09/2021) No family history on file. SOCIAL HISTORY[1] Objective BP 114/74 Pulse 60 Temp 36.1 ?C (97 ?F) Resp 20 Wt (!) 137 kg (302 lb 0.5 oz) LMP 12/08/2024 (Approximate) SpO2 98% Physical Exam Constitutional: General: She is not in acute distress. Appearance: Normal appearance. She is normal weight. She is not toxic-appearing. HENT: Head: Normocephalic and atraumatic. Jaw: No trismus or swelling. Mouth/Throat: Mouth: Mucous membranes are moist. No injury, oral lesions or angioedema. Tongue: Tongue does not deviate from midline. Palate: No mass and lesions. Pharynx: Uvula midline. Postnasal drip present. No pharyngeal swelling, oropharyngeal exudate, posterior oropharyngeal erythema or uvula swelling. Tonsils: No tonsillar exudate or tonsillar abscesses. Comments: White coating on tongue Cardiovascular: Rate and Rhythm: Normal rate and regular rhythm. Pulses: Normal pulses. Heart sounds: Normal heart sounds. Pulmonary: Effort: Pulmonary effort is normal. Breath sounds: Normal breath sounds. Lymphadenopathy: Cervical: No cervical adenopathy. Neurological: Mental Status: She is alert. { 1. Thrush (B37.0) - Recent antibiotic use for STI. - Start oral fluconazole (Diflucan) single dose. - Start oral nystatin suspension, swish and swallow, for 14 days. - Advised to replace toothbrush 24 hours after starting treatment and again at end of treatment. - Patient expressed understanding and agreement with plan. and Recording using [employer] software for draft documentation of the visit was discussed with the patient/authorized underwriting account representative; all questions welcomed and answered. Patient/authorized underwriting account representative agreed to proceed Differential Diagnoses - Thrush is more likely for the following reason(s): suggested by HANDP - HAM STRIPPER/deep neck tissue infection/tonisilitis is less likely for the following reason(s): HANDP not suggestive Disposition The patient was discharged. [1] Social History Tobacco Use Smoking status: Never Smokeless tobacco: Never Allergies As of Date: 12/11/2024 Noted Allergy Reaction PENICILLINS 07/09/2021 16 - Unknown Date Reviewed: 12/11/2024 Reviewed by: Sarah Aldridge LPN - Fully Assessed Reason for Visit: Mouth/Lip Problem [68] Cmt: Mouth is sore, foul taste in mouth, states she just finished atb x and has had sore mouth since, states possible thrush Primary Visit Diagnosis:Thrush [B37.0] Order(s):nystatin (MYCOSTATIN) 100,000 unit/mL suspensionTake 5 mL by mouth four times daily for 14 days. Swish and swallow.Disp: 280 mLRfl: 0 fluconazole (DIFLUCAN) 150 mg tabletTake 1 tablet by mouth one time only for 1 dose.Disp: (more content not included)... Normal [facility] Immunohistochemical Stainson 12-05-2024 Immunohistochemical Stains -------- Patient Age/Sex Location Account Attending Physician -------- DANYA MARTINEZ 49/F [facility] [id number] Dr. Mika Coughlin MD -------- Specimen: [id number] Received: 12/05/24 Status: PHYLLIS Foote Num: [id number] Spec Type: CERV Subm Dr: Dr. Sury Tellez, DO HEADER OPERATION: Colposcopy PRE-OP DIAGNOSIS: ASCUS, HPV+ TISSUE SUBMITTED: A- Cervical tissue - 6o'clock, B- ECC -------- MICROSCOPIC DIAGNOSIS A. Cervix, 6 o'clock, colposcopic biopsy: * Squamous and endocervical mucosa with reactive changes and marked active chronic inflammation. B. Cervix, endocervix, colposcopy: * Atypical squamous metaplasia suspicious for dysplasia, with marked active chronic inflammation. * IHC for p16 is negative for block positivity - see note. * Note: Features diagnostic for high grade dysplasia are not demonstrated in these sections. MICROSCOPIC DESCRIPTION Slides are reviewed. All matched controls reacted appropriately. These tests were developed and their performance characteristics determined by [facility]. They may not have been cleared or approved by the U.S. Food and Drug Administration. The FDA has determined that such clearance or approval is not necessary. The above immunohistochemical markers and/or special stains have been reviewed by the Pathologist. GROSS DESCRIPTION Received in 2 formalin containers labeled with the patient's name and date of . Designated as: A. 6 o'clock is a 0.4 x 0.3 x 0.1 cm jeong tissue fragment and minimal mucoid material entirely submitted in 1 cassette. B. ECC are scant flecks of jeong tissue and mucoid material, collectively measuring approximately 0.5 x 0.4 x <0.1 cm in aggregate entirely submitted in 1 cassette. The entirety of the specimen may not survive processing. NE 12/06/2024 [facility]:[id number] -------- Patient Age/Sex Location Account Attending Physician -------- DANYA MARTINEZ 49/F [facility] [id number] Dr. Mika Coughlin MD -------- Signed (signature on file) Dr. Radha Faust MD 12/12/24 1159 -------- Normal [facility] Comment on above: Performed By: #### P [facility] #### [facility] [address] [place], [place], [id number] Ice S[facility] Office Visit Reporton 12-05-2024 Ice Seller Office Visit Report [facility] [address], [address] [place] [address] OFFICE VISIT Date of Service: 12/05/24 MR#: [id number] Acct: [id number] Name: DANYA MARTINEZ Maral Rep #: [id number] : 1975 Provider: Dr. Shilpa raymundo MD Age/Sex: 49/F Location: [facility] Status: Signed Intake Vital Signs 10/20/24 09:12 11/23/24 08:26 12/05/24 15:26 Height 5 ft 8 in 5 ft 8 in 5 ft 8 in Weight: 300 lb 7 oz BMI 45.6 BP 111/78 Intake Visit Reasons: [place] for ASCUS, +HPV Chief Complaint: Colposcopy Glost Kiln Operator Required: No Is patient in pain?: No Allergies Penicillins Allergy (Unknown, Verified 12/05/24 15:24) A CHILD, UNKNOWN RXN iodine Adverse Reaction (Verified 12/05/24 15:24) Rash Medications ???Medication ???Instructions ???Recorded ???Confirmed ???Type fluticasone propionate 50 50 mcg intranasal QDAY PRN 8 12/05/24 History mcg/actuation nasal allergies spray,suspension (Flonase Allergy Relief) sertraline 100 mg tablet (Zoloft) 100 mg PO QDAY 03/20/17 12/05/24 History multivitamin 1 tab PO DAILY 03/12/23 12/05/24 H istory omeprazole 40 mg capsule,delayed 40 mg PO DAILY 03/12/23 12/05/24 H istory release cetirizine 10 mg tablet (24Hour 10 mg PO DAILY 09/14/24 12/05/24 H istory Allergy) montelukast 10 mg tablet 10 mg PO DAILY 09/14/24 12/05/24 H istory Is last menstrual period known: Yes Last Menstrual Period: 11/30/24 Post menopausal: No Patient : No : No PFSH PFSH Medical History IBS (irritable bowel syndrome) Wears contact lenses Colonoscopy planned Gastric reflux Screening for colon cancer Family history of colon cancer IGT (impaired glucose tolerance) Morbid obesity Allergic rhinitis Anxiety Surgical History S/P thyroid biopsy S/P wisdom tooth extraction S/P tonsillectomy Family History Father Colon cancer Alcoholism Mother CVA (cerebral vascular accident) Hypertension Diabetes Heart disease Anxiety Arthritis Bowel disease Depression Sister Seizures Daughter Anxiety Asthma Grandmother Breast cancer maternal Cervical cancer paternal Colon cancer paternal Social History number of children: 2 current occupational status: employed current occupation: [employer] Smoking Status: Never smoker second hand exposure: No alcohol intake: never substance use type: does not use caffeine: No what type of physical activity do you participate in: none frequency: does not exercise seatbelt use: always additional social history: Single History 3 Elective abortions Hx Para 2 Spontaneous abortions 1 Hx # Term Pregnancies Ectopic pregnancies Hx # Pregnancies Multiple births # of living children 2 Past Pregnancies Del. Date Name GA/Weeks Outcome Route Bth Weight Infant Gen Labor Lgth Anesthesia Del Locatn Provider FOB Unknown Gillian 2008 Female Unknown Leno 2010 Male HPI [place] for ASCUS, +HPV Details: DANYA MARTINEZ is a 49 year old who presents for colpscopy Female Reproductive History Last Menstrual Period: 11/30/24 ROS Const Constitutional: Reports system reviewed and no additional complaints, except as documented; Denies chills, fever(s), weight gain or weight loss GI GI: Reports as per HPI; Denies abdominal pain, bloating, constipation, cramping, nausea or vomiting : Reports as per HPI; Denies urinary frequency, urinary incontinence, urinary urgency, vaginal discharge or vaginal dryness Exam Const General: cooperative, healthy appearing, comfortable and well developed Orientation: alert HENMT Head: normal to inspection Resp Effort Inspection: normal respiratory effort GI Inspection: normal to inspection and non-distended Palpation: soft, no hepatosplenomegaly and no guarding External Female Exam: normal external appearance and normal appearance of the urethra Urethra: normal appearance of the urethra Speculum Exam - Vagina: normal appearance of the vagina, normal vaginal discharge and no lesions Office Procedures Colposcopy Colposcopy Reason for colposcopy: ASCUS and positive HR HPV types Pap/JAMAAL history: no prior abnormal pap Consent Signed: Yes Time out performed: Yes Time: 16:06 Acetowhite epithelium (cervix): 6 o'clock Punctation (cervix): 6 o'clock Mosaicism (cervix): none Abnormal vessels (cervix): none Biopsies (cervix): 6 o'clock Cervix+upper/adj vag+bx cervix+ECC: Yes biopsy Details: adequate colposcopy dilute acetic acid applied and entire SCJ visualized with abo (more content not included)... Normal [facility] Chlamydia/GC DIONISIO aptimaon CHLAMY,NUC ACID Negative Normal Negative [facility] Comment on above: Performed By: #### P [facility] #### [facility] [address] [place], [place], [id number] GC BY NUC ACID Negative Normal Negative [facility] Comment on above: Result Comment: Perf ormed at: =G - [facility] [address] [id number] Business Support Professional: Marly Rousseau MD, Phone: [phone] Performed By: #### P [facility] #### [facility] [address] [place], [place], [id number] Genital Culture Comprehensiv brinda 11-24-2024 VAC Reason for Exam: vaginal discharge Normal vaginal mariaelena isolated. No yeast, Gardnerella, Neisseria or beta-hemolytic Streptococcus isolated. Normal [facility] Comment on above: Performed By: #### P [facility] #### [facility] [address] [place], [place], [id number] Chlamydia trachomatis rRNA d etection by probe and target amplification methodOrdered By: Peace Crane on 11-23-2024 C. trachomatis rRNA DIONISIO+probe Ql (Unsp spec) Negative Negative [facility] Genital cultureOrdered By: Jessie Crane on 11-23-2024 Source specific culture Neisseria or beta-hemolytic Streptococcus isolated. [facility] Gram Stainon 11-23-2024 GS Reason for Exam: vaginal discharge Gram Stain 2+ Gram negative rods 2+ Gram positive cocci Rare White Blood Cells No Gram negative diplococci Score = 6 Interpretation: 0-3 Normal, 4-6 Intermediate, 7-10 Positive BV Normal [facility] Comment on above: Performed By: #### P [facility] #### [facility] [address] [place], [place], [id number] Gram stainOrdered By: Peace Crane on 11-23-2024 Microscopic observation Gram stain Nom (Unsp spec) [facility] HIVon 11-23-2024 HIV Non-Reactive Normal Nonreactive [facility] Comment on above: Result Comment: Non- Reactive Reactive Repeatedly reactive samples must be confirmed according to CDC recommended confirmatory algorithms. The subresults for either HIVAG or AHIV can be used as an aid in the selection of the confirmation algorithm for reactive samples. Send out specimens with Reactive results to [facility] for confirmation. Order the HIV antibody detection and differentiation: lc#[id number] Performed By: #### L 509.8002, L3890.6301, L3890.6102, L3890.6006 #### [facility] [address] [place], [place], [id number] Hepatitis C Antibodyon 11-23 Hepatitis C Ab Non-Reactive Normal Nonreactive [facility] Comment on above: Result Comment: Reac tive: Presumptive evidence of antibodies to HCV. Follow CDC recommendations for supplemental testing. Non-Reactive: Antibodies to HCV were not detected; does not exclude the possibility of exposure to HCV Reactive Results are presumptive evidence of antibodies to HCV. Follow CDC recommendations for supplemental testing. Order confirmation testing: HCV Quant by PCR testing - HCVPCR #[id number] Non Reactive: < 0.8 Equivocal: >/= 0.8 to < 1.0 Reactive: >/= 1.0 The CDC requires that a reactive/equivocal HCV antibody result be sent out for confirmation. HCV Quant by PCR testing. Performed By: #### P [facility] #### [facility] [address] [place], [place], [id number] L3890.6102on 11-23-2024 HEP B Surf Ag Non-Reactive Normal Nonreactive [facility] Comment on above: Result Comment: Reac tive: Presumptive evidence of HBV. Repeatedly reactive samples must be confirmed using a neutralization test ([employer] HBsAg Confirmatory Test) Non-Reactive: HBsAg not detected; does not exclude the possibility of exposure to HBV Performed By: #### P [facility] #### [facility] [address] [place] [address], [id number] Laboratory - Chemistry and C hemistry - challengeOrdered By: Peace Crane on 11-23-2024 HCG ( test) Ql (U) Negative [facility] - Microbiology an d Antimicrobial susceptibilityOrdered By: Peace Crane on 11-23-2024 HBV surface Ag Ql (S) Non-Reactive Nonreactive [facility] Comment on above: Reactive: Presumptiv e evidence of HBV. Repeatedly reactive samples must be confirmed using a neutralization test ([employer] HBsAg Confirmatory Test)Non-Reactive: HBsAg not detected; does not exclude the possibility of exposure to HBV Neisseria gonorrhoeae nuclei c acid detection by amplified probe techniqueOrdered By: Peace Crane on 11-23-2024 N. gonorrhoeae DNA DIONISIO+probe Ql (Unsp spec) Negative Negative [facility] Comment on above: Performed at: =[facility] [address] [id number] Director: Marly Rousseau MD, Phone: [phone] No Panel InformationOrdered By: Peace Crane on 11-23-2024 HIV (1&2) Antibody Non-Reactive Nonreactive [facility] Comment on above: Non-ReactiveReactive Repeatedly reactive samples must be confirmed according to CDC recommended confirmatory algorithms. The subresults for either HIVAG or AHIV can be used as an aid in the selection of the confirmation algorithm for reactive samples.Send out specimens with Reactive results to [facility] for confirmation.Order the HIV antibody detection and differentiation: #[id number] POC Trichomonas (Rapid) Positive [facility] Ice Seller Office Visit Reporton 11-23-2024 Ice Seller Office Visit Report [facility] [address], [address] [place] [address] OFFICE VISIT Date of Service: 11/23/24 MR#: [id number] Acct: [id number] Name: KAILEYCHANDRA KhouryDANYA J Rep #: [id number] : 1975 Provider: MISHA Tejada Age/Sex: 49/F Location: [facility] Status: Signed Intake Vital Signs 10/27/24 10:58 11/23/24 08:26 Height 5 ft 8 in 5 ft 8 in Weight: 299 lb 6 oz BMI 45.5 BP 136/82 H Intake Visit Reasons: Trich on Pap *Tyra from 11/09 Glost Kiln Operator Required: No Is patient in pain?: No Allergies Penicillins Allergy (Unknown, Verified 11/23/24 08:30) A CHILD, UNKNOWN RXN iodine Adverse Reaction (Verified 11/23/24 08:30) Rash Medications ???Medication ???Instructions ???Recorded ???Confirmed ???Type fluticasone propionate 50 50 mcg intranasal QDAY PRN 8 11/23/24 History mcg/actuation nasal allergies spray,suspension (Flonase Allergy Relief) sertraline 100 mg tablet (Zoloft) 100 mg PO QDAY 03/20/17 11/23/24 History multivitamin 1 tab PO DAILY 03/12/23 11/23/24 H istory omeprazole 40 mg capsule,delayed 40 mg PO DAILY 03/12/23 11/23/24 H istory release cetirizine 10 mg tablet (24Hour 10 mg PO DAILY 09/14/24 11/23/24 H istory Allergy) montelukast 10 mg tablet 10 mg PO DAILY 09/14/24 11/23/24 H istory metronidazole 500 mg tablet 500 mg PO BID 7 days #14 tabs 11/14 Rx Post menopausal: No Patient : No : No PFSH Medical History IBS (irritable bowel syndrome) Wears contact lenses Colonoscopy planned Gastric reflux Screening for colon cancer Family history of colon cancer IGT (impaired glucose tolerance) Morbid obesity Allergic rhinitis Anxiety Surgical History S/P thyroid biopsy S/P wisdom tooth extraction S/P tonsillectomy Family History Father Colon cancer Alcoholism Mother CVA (cerebral vascular accident) Hypertension Diabetes Heart disease Anxiety Arthritis Bowel disease Depression Sister Seizures Daughter Anxiety Asthma Grandmother Breast cancer maternal Cervical cancer paternal Colon cancer paternal Social History number of children: 2 current occupational status: employed current occupation: [employer] Smoking Status: Never smoker second hand exposure: No alcohol intake: never substance use type: does not use caffeine: No what type of physical activity do you participate in: none frequency: does not exercise seatbelt use: always additional social history: Single HPI Trich on Pap *Tyra from 11/09 Details: DANYA MARTINEZ is a 49 year old who presents for testing for Trich. This was found on PAP in October. She reports she does have a yellow discharge that has started over the past couple weeks; she was dating a man and was sexually active with oud-lyjhlmokamh-tqf not had STD testing since. She denies fever/chills or pelvic pain. She reports an odor, yellow milky discharge. Female Reproductive History Last Menstrual Period: 10/24/24 History 3 Elective abortions Hx Para 2 Spontaneous abortions 1 Hx # Term Pregnancies Ectopic pregnancies Hx # Pregnancies Multiple births # of living children 2 Past Pregnancies Del. Date Name GA/Weeks Outcome Route Bth Weight Gen Labor Lgth Anesthesia Del Locatn Provider FOB Unknown Gillian 2008 Female Unknown Leno 2010 Male ROS Const Constitutional: Reports system reviewed and no additional complaints, except as documented and as per HPI Resp Resp: Reports system reviewed and no additional complaints, except as documented GI GI: Reports system reviewed and no additional complaints, except as documented : Reports as per HPI, vaginal discharge, vaginal odor and vaginal pruritus; Denies dysuria, pelvic pain or vaginal dryness Exam Const General: cooperative, healthy appearing, comfortable, no acute distress, well groomed and well hydrated Nutritional Appearance: well nourished Orientation: alert, awake and oriented x3 Resp Effort Inspection: normal respiratory effort, able to speak in complete sentences and symmetric chest movement External Female Exam: normal external appearance and normal appearance of the urethra Urethra: normal appearance of the urethra Speculum Exam - Vagina: normal appearance of the vagina, abnormal vaginal discharge (milky yellow with odor. ), no lesions and nontender Speculum Exam - Cervix: normal appearance of the cervix, no lesions and no masses Neuro General: patient alert, patient awake, patient oriented x3 and m (more content not included)... Normal [facility] ,Urineon 11-23-2024 Beta HCG ( test) Ql (U) Normal [facility] Comment on above: Result Comment: NOT NEEDED Performed By: #### P [facility] #### [facility] [address] [place], [address] INTERNAL QC OK? Normal [facility] Comment on above: Result Comment: NOT NEEDED Performed By: #### P [facility] #### [facility] [address] [place], [address] RECORD KIT LOT# Normal [facility] Comment on above: Result Comment: NOT NEEDED Performed By: #### P [facility] #### [facility] [address] [place], [address] Syphilis Antibodieson 2024 Syphilis Abs Non-Reactive Normal Nonreactive [facility] Comment on above: Performed By: #### L 509.8002, L3890.6301, L3890.6102, L3890.6006 #### [facility] [address], [address] PAP IG HPV APTIMA 16/18,45on 10-25-2024 ADEQ Comment Normal . [facility] Comment on above: Order Comment: Speci men Comment: [id number] Comment: Source.............CervixSpecimen Comment: LMP / Prev Treat...[id number] Comment: No. of containers..01 ThinPrep Vial Result Comment: Sati sfactory for evaluation. Endocervical and/or squamous metaplastic cells (endocervical component) are present. Performed By: #### P [facility] #### [facility] [address], [address] COMM . Normal . [facility] Comment on above: Order Comment: Speci men Comment: [id number] Comment: Source.............CervixSpecimen Comment: LMP / Prev Treat...[id number] Comment: No. of containers..01 ThinPrep Vial Performed By: #### P IM[facility] #### [facility] [address], [address] COMMENT Comment Normal . [facility] Comment on above: Order Comment: Speci men Comment: [id number] Comment: Source.............CervixSpecimen Comment: LMP / Prev Treat...[id number] Comment: No. of containers..01 ThinPrep Vial Result Comment: This liquid based ThinPrep(R) pap test was screened with the use of an image guided system. Performed By: #### P [facility] #### [facility] [address] [place], [place], [id number] DIAG Comment Abnormal . [facility] Comment on above: Order Comment: Speci men Comment: [id number] Comment: Source.............CervixSpecimen Comment: LMP / Prev Treat...[id number] Comment: No. of containers..01 ThinPrep Vial Result Comment: EPIT HELIAL CELL ABNORMALITY. ATYPICAL SQUAMOUS CELLS OF UNDETERMINED SIGNIFICANCE (ASC-US). TRICHOMONAS VAGINALIS IS PRESENT. Performed By: #### P IM[facility] #### [facility] [address] [place], [place], [id number] HPV APTIMA, HR Positive Abnormal Negative [facility] Comment on above: Order Comment: Speci men Comment: [id number] Comment: Source.............CervixSpecimen Comment: LMP / Prev Treat...[id number] Comment: No. of containers..01 ThinPrep Vial Result Comment: This nucleic acid amplification test detects fourteen high- risk HPV types (16,18,31,33,35,39,45,51,52,56,58,59,66,68) without differentiation. Performed By: #### P [facility] #### [facility] [address] [place], [place], [id number] HPV Carrie Rfx Comment Normal . [facility] Comment on above: Order Comment: Speci men Comment: [id number] Comment: Source.............CervixSpecimen Comment: LMP / Prev Treat...[id number] Comment: No. of containers..01 ThinPrep Vial Result Comment: Crit eria not met, HPV Genotype not performed. Performed at: - [facility] [id number] Business Support Professional: Marly Rousseau MD, Phone: [phone] Performed at: = - [facility] [address] [id number] Business Support Professional: Marly Rousseau MD, Phone: [phone] Performed By: #### P [facility] #### [facility] [address] [place], [address] PAPSMR Comment Normal . [facility] Comment on above: Order Comment: Speci men Comment: [id number] Comment: Source.............CervixSpecimen Comment: LMP / Prev Treat...[id number] Comment: No. of containers..01 ThinPrep Vial Result Comment: The Pap smear is a screening test designed to aid in the detection of premalignant and malignant conditions of the uterine cervix. It is not a diagnostic procedure and should not be used as the sole means of detecting cervical cancer. Both false-positive and false-negative reports do occur. Performed By: #### P [facility] #### [facility] [address] [place], [address] Path.prov.IDC-9 Comment Normal . [facility] Comment on above: Order Comment: Speci men Comment: [id number] Comment: Source.............CervixSpecimen Comment: LMP / Prev Treat...[id number] Comment: No. of containers..01 ThinPrep Vial Result Comment: R87. 610, R87.5 Performed By: #### P [facility] #### [facility] [address] [place], [place], [id number] PERFORM Comment Normal . [facility] Comment on above: Order Comment: Speci men Comment: [id number] Comment: Source.............CervixSpecimen Comment: LMP / Prev Treat...[id number] Comment: No. of containers..01 ThinPrep Vial Result Comment: Antonio Rowan, Line Puller (ASCP) Performed By: #### P [facility] #### [facility] [facility] [address] [place], [place], [address] SIGN Comment Normal . [facility] Comment on above: Order Comment: Speci men Comment: [id number] Comment: Source.............CervixSpecimen Comment: LMP / Prev Treat...[id number] Comment: No. of containers..01 ThinPrep Vial Result Comment: Hussein Cortez MD, Pathologist Performed By: #### P IMHI #### [facility] [address] [place], [place], [id number] Cervical or vaginal specimen microscopic examination by liquid based cytology (reportOrdered By: Peace Crane on 10-20-2024 Cytology report Cyto stain.thin prep Doc (Cvx/Vag) Comment . [facility] Comment on above: Criteria not met, HP V Genotype not performed.Performed at: - [address] [id number] Director: Marly Rousseau MD, Phone: [phone] at: = - [facility] [id number] Director: Marly Rousseau MD, Phone: [phone] Cervical or vagninal specime n microscopic examination by cytology stain (reported asOrdered By: Peace Crane on 10-20-2024 Cytology report Cyto stain Doc (Cvx/Vag) Comment . [facility] Comment on above: The Pap smear is a s creening test designed to aid in thedetection of premalignant and malignant conditions of theuterine cervix. It is not a diagnostic procedure andshould not be used as the sole means of detecting cervicalcancer. Both false-positive and false-negative reports dooccur. Detection in cervical specim en of any of human papilloma virus (HPV) 16, 18, 31, 33,Ordered By: Peace Crane on 10-20-2024 HPV 16+18+31+33+35+39+45+51+ 52+56+58+59+66+68 DNA Probe+sig amp Ql (Cvx) Positive High Negative [facility] Comment on above: This nucleic acid am plification test detects fourteen high-risk HPV types (16,18,31,33,35,39,45,51,52,56,58,59,66,68)without differentiation. Laboratory - CytologyOrdered By: Peace Crane on 10-20-2024 Line Puller Cyto stain Nom (Cvx/Vag) [ID] Comment . [facility] Comment on above: Terrell Weinberg tologist (ASCP) Pathologist Cyto stain Nom (Cvx/Vag) [ID] Comment . [facility] Comment on above: Rosaura Cortez MD, P athologist Laboratory - Miscellaneous t estsOrdered By: Peace Crane on 10-20-2024 Service comment (Unsp spec) [Interp] . . [facility] No Panel InformationOrdered By: Peace Crane on 10-20-2024 Pap Smear Specimen Adequacy Comment . [facility] Comment on above: Satisfactory for milka luation. Endocervical and/or squamous metaplasticcells (endocervical component) are present. Pathology report final diagnosis Narrative Comment . 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 Is patient in pain?: No Allergies Penicillins Allergy (Unknown, Verified 10/20/24 09:16) A CHILD, UNKNOWN RXN iodine Adverse Reaction (Verified 10/20/24 09:16) Rash Medications ???Medication ???Instructions ???Recorded ???Confirmed ???Type fluticasone propionate 50 50 mcg intranasal QDAY PRN 8 10/20/24 History mcg/actuation nasal allergies spray,suspension (Flonase Allergy Relief) sertraline 100 mg tablet (Zoloft) 100 mg PO QDAY 03/20/17 10/20/24 History multivitamin 1 tab PO DAILY 03/12/23 10/20/24 H istory omeprazole 40 mg capsule,delayed 40 mg PO DAILY 03/12/23 10/20/24 H istory release cetirizine 10 mg tablet (24Hour 10 mg PO DAILY 09/14/24 10/20/24 H istory Allergy) montelukast 10 mg tablet 10 mg PO DAILY 09/14/24 10/20/24 H istory Is last menstrual period known: Yes Last Menstrual Period: 09/19/24 (irregular) Post menopausal: No Patient : No : No PFSH Medical History (Updated 10/20/24 @ 09:45 by MISHA Ayers) IBS (irritable bowel syndrome) Wears contact lenses Colonoscopy planned Gastric reflux Screening for colon cancer Family history of colon cancer IGT (impaired glucose tolerance) Morbid obesity Allergic rhinitis Anxiety Surgical History S/P thyroid biopsy S/P wisdom tooth extraction S/P tonsillectomy Family History (Updated 10/20/24 @ 09:25 by Nguyen Adan) Father Colon cancer Alcoholism Mother CVA (cerebral vascular accident) Hypertension Diabetes Heart disease Anxiety Arthritis Bowel disease Depression Sister Seizures Daughter Anxiety Asthma Grandmother Breast cancer maternal Cervical cancer paternal Colon cancer paternal Social History (Updated 10/20/24 @ 09:18 by Nguyen Adan) number of children: 2 current occupational status: employed current occupation: [employer] Smoking Status: Never smoker second hand exposure: No alcohol intake: never substance use type: does not use caffeine: No what type of physical activity do you participate in: none frequency: does not exercise seatbelt use: always additional social history: Single History 3 Elective abortions Hx Para 2 Spontaneous abortions 1 Hx # Term Pregnancies Ectopic pregnancies Hx # Pregnancies Multiple births # of living children 2 Past Pregnancies Del. Date Name GA/Weeks Outcome Route Bth Weight Gen Labor Lgth Anesthesia Del Locatn Provider FOB Unknown Gillian 2008 Female Unknown Leno 2010 Male HPI Encounter for routine gynecological examination Details: DANYA MARTINEZ is a 49 year old who presents for annual exam. She is here to establish as a new patient. She recently had a thyroid ultrasound--showed enlargement-following through PCP for this. She reports no issues or concerns otherwise. Last PAP: 2018; normal/negative History of abnormal PAP: negative colp without treatment >10 yr ago. Negative since Last mammogram: 08/2024 stable History of abnormal mammogram: none Colon cancer screening: UTD; most recent 09/2024--Dr. Man [facility] Female Reproductive History Last Menstrual Period: 09/19/24 (irregular) Associated symptoms: not tracking but feels she is irregular. Questions: metrorrhagia: No, sexually active: Yes (not currently. ), dyspareunia: No and PCB: No ROS Const Constitutional: Denies chills, fatigue, fever(s), headache(s) or weight loss Eyes Eyes: Denies change in vision ENT ENT: Denies dizziness Cardio Card: Denies chest pain at rest or palpitations Resp Resp: Denies cough or dyspnea GI GI: Denies abdominal pain, constipation or nausea : Denies difficulty voiding, dysuria, hematuria, nipple discharge, pelvic pain, prolapse symptoms, urinary incontinence, vaginal discharge, vaginal dryness, vaginal odor or vaginal pruritus Skin Skin/Breast: Denies alopecia, rash, breast mass, breast pain, breast skin changes or nipple discharge Neuro Neuro: Denies dizziness Psych Psych: Denies anxiety or depression Endo Endo: Denies cold intolerance, excessive sweating or heat intolerance (more content not included)... Normal [facility] Colonoscopy Reporton 025 Colonoscopy Report [facility] Medical Records Department [address] [place] [address] Colonoscopy Report MR#: [id number] Acct: [id number] Name: DANYA MARTINEZ Rep #: [id number] : 1975 49 From: Vinh Man MD PCP: Dr. Mika Coughlin MD Status:[facility] Patient Name: Danya Martinez Procedure Date: 09/19/2024 10:21 AM Date of : 1975 Age: 49 Procedure: Colonoscopy Indications: Screening in patient at increased risk: Family history of 1st-degree relative with colorectal cancer Providers: Vinh Man MD Referring MD: Mika Coughlin Medicines: Monitored Anesthesia Care Patient Profile: Refer to note in patient chart for documentation of history and physical. Patient has symptoms of chronic heartburn. Refer to note in patient chart for documentation of history and physical. Last Colonoscopy: none. The patient's first colonoscopy is today. Complications: No immediate complications. Estimated blood loss: None. Procedure: Pre-Anesthesia Assessment: - Prior to the procedure, a History and Physical was performed, and patient medications and allergies were reviewed. The patient's tolerance of previous anesthesia was also reviewed. The risks and benefits of the procedure and the sedation options and risks were discussed with the patient. All questions were answered, and informed consent was obtained. Prior Anticoagulants: The patient has taken no anticoagulant or antiplatelet agents. ASA Grade Assessment: II - A patient with mild systemic disease. After reviewing the risks and benefits, the patient was deemed in satisfactory condition to undergo the procedure. - Prior to the procedure, a History and Physical was performed, and patient medications and allergies were reviewed. The patient's tolerance of previous anesthesia was also reviewed. The risks and benefits of the procedure and the sedation options and risks were discussed with the patient. All questions were answered, and informed consent was obtained. Prior Anticoagulants: The patient has taken no anticoagulant or antiplatelet agents. ASA Grade Assessment: II - A patient with mild systemic disease. After reviewing the risks and benefits, the patient was deemed in satisfactory condition to undergo the procedure. After I obtained informed consent, the scope was passed under direct vision. Throughout the procedure, the patient's blood pressure, pulse, and oxygen saturations were monitored continuously. The colonoscope was introduced through the anus and advanced to the cecum, identified by appendiceal orifice and ileocecal valve. The ileocecal valve, appendiceal orifice, and rectum were photographed. The entire colon was well visualized. The colonoscopy was performed without difficulty. The patient tolerated the procedure well. The quality of the bowel preparation was adequate. Moderate Sedation: See the other procedure note for documentation of moderate sedation with intraservice time. Scope In: 10:24:56 AM Scope Withdrawal Time 0 hours 6 minutes 2 seconds Scope Out: 10:36:27 AM Total Procedure Duration Time 0 hours 11 minutes 31 seconds Findings: The perianal and digital rectal examinations were normal. Internal hemorrhoids were found during retroflexion. The hemorrhoids were mild. The exam was otherwise without abnormality on direct and retroflexion views. Impression: - Internal hemorrhoids. - The examination was otherwise normal on direct and retroflexion views. - No specimens collected. Recommendation: - Discharge patient to home (ambulatory). - High fiber diet. - Repeat colonoscopy in 7 years for screening purposes. - Return to my office PRN. - Continue present medications. Procedure Code(s): --- Professional --- G0105, Colorectal cancer screening; colonoscopy on individual at high risk Diagnosis Code(s): --- Professional --- K64.8, Other hemorrhoids Z80.0, Family history of malignant neoplasm of digestive organs CPT copyright 2021 [employer] [employer]. All rights reserved. The codes documented in this report are preliminary and upon steel detailer review may be revised to meet current compliance requirements. Vinh Man MD 09/19/2024 10:46:39 AM This report has been signed electronically. Number of Addenda: 0 Note Initiated On: 09/19/2024 10:21 AM 09/19/24 1046 Date Vinh Man MD Cosigner Signature: Date (if indicated) CC: Dr. Mika Coughlin MD; Dr. Vinh Man MD Date Dictated: 09/19/24 1021 Date Transcribed: Butcher'S Assistant: BENEDICT Signed Normal [facility] EGD Reporton 09-19-2024 EGD Report [facility] Medical Records Department [address] [place] [address] EGD Report MR#: [id number] Acct: [id number] Name: DANYA MARTINEZ Rep #: [id number] : 1975 49 From: Vinh Man MD PCP: Dr. Mika Coughlin MD [place] Patient Name: Danya Martinez Procedure Date: 09/19/2024 9:59 AM Date of : 1975 Age: 49 Procedure: Upper GI endoscopy Indications: Heartburn Providers: Vinh Man MD Referring MD: Mika Coughlin Medicines: Monitored Anesthesia Care Patient Profile: Refer to note in patient chart for documentation of history and physical. Patient has symptoms of chronic heartburn. Refer to note in patient chart for documentation of history and physical. Complications: No immediate complications. Estimated blood loss: Minimal. Procedure: Pre-Anesthesia Assessment: - Prior to the procedure, a History and Physical was performed, and patient medications and allergies were reviewed. The patient's tolerance of previous anesthesia was also reviewed. The risks and benefits of the procedure and the sedation options and risks were discussed with the patient. All questions were answered, and informed consent was obtained. Prior Anticoagulants: The patient has taken no anticoagulant or antiplatelet agents. ASA Grade Assessment: II - A patient with mild systemic disease. After reviewing the risks and benefits, the patient was deemed in satisfactory condition to undergo the procedure. After obtaining informed consent, the endoscope was passed under direct vision. Throughout the procedure, the patient's blood pressure, pulse, and oxygen saturations were monitored continuously. The Endoscope was introduced through the mouth, and advanced to the second part of duodenum. The upper GI endoscopy was accomplished without difficulty. The patient tolerated the procedure well. Moderate Sedation: See the other procedure note for documentation of moderate sedation with intraservice time. Scope In: 10:16:49 AM Scope Out: 10:21:10 AM Total Procedure Duration Time 0 hours 4 minutes 21 seconds Findings: The first portion of the duodenum and second portion of the duodenum were normal. No gross lesions were noted in the entire examined stomach. Biopsies were taken with a cold forceps for Helicobacter pylori testing. Estimated blood loss was minimal. The examined esophagus was normal. Mucosa was biopsied with a cold forceps for histology randomly at the gastroesophageal junction. Verification of patient identification for the specimen was done by the nurse using the patient's name, date and medical record number. Estimated blood loss was minimal. The exam was otherwise without abnormality. Impression: - Normal first portion of the duodenum and second portion of the duodenum. - No gross lesions in the entire stomach. Biopsied. - Normal esophagus. Biopsied. - The examination was otherwise normal. Recommendation: - Discharge patient to home (ambulatory). - High fiber diet. - Await pathology results. - Repeat upper endoscopy after studies are complete for surveillance. - Return to my office PRN. - Continue present medications. Procedure Code(s): --- Professional --- 05215, Esophagogastroduodeno scopy, flexible, transoral; with biopsy, single or multiple Diagnosis Code(s): --- Professional --- R12, Heartburn CPT copyright 2021 [place]. All rights reserved. The codes documented in this report are preliminary and upon steel detailer review may be revised to meet current compliance requirements. Vinh Man MD 09/19/2024 10:43:18 AM This report has been signed electronically. Number of Addenda: 0 Note Initiated On: 09/19/2024 9:59 AM 09/19/24 1043 Date Vinh Man MD Cosigner Signature: Date (if indicated) CC: Dr. Mika Coughlin MD; Dr. Vinh Man MD Date Dictated: 09/19/24 0959 Date Transcribed: Butcher'S Assistant: BENEDICT Signed Normal [facility] Immunohistochemical Stainson 09-19-2024 Immunohistochemical Stains -------- Patient Age/Sex Location Account Attending Physician -------- DANYA MARTINEZ 49/F EN [id number] Dr. Vinh Man MD -------- Specimen: [id number] Received: 09/19/24-1255 Status: PHYLLIS Foote Num: [id number] Spec Type: EGD BIOPSY Subm Dr: Dr. Vinh Man MD HEADER OPERATION: Colonoscopy, EGD, biopsy PRE-OP DIAGNOSIS: GERD, family history of colon cancer TISSUE SUBMITTED: A- Antrum biopsy, B- GE junction biopsy -------- MICROSCOPIC DIAGNOSIS A. Gastric antrum, biopsy: - chronic gastritis with features of reactive gastropathy. - IHC negative for H.pylori organisms. B. GE junction, esophagus, biopsy: - benign squamous and columnar mucosa. - Negative for goblet cell metaplasia. - Negative for dysplasia. MICROSCOPIC DESCRIPTION Slides are reviewed. All matched controls reacted appropriately. These tests were developed and their performance characteristics determined by [facility]. They may not have been cleared or approved by the U.S. Food and Drug Administration. The FDA has determined that such clearance or approval is not necessary. The above immunohistochemical/d ualISH markers are viewed by the Pathologist. GROSS DESCRIPTION A. Received in fixative is one container labeled with the patient's name and designated Antrum biopsy. The specimen consists of two irregular fragments of light jeong soft tissue that in aggregate measure 0.2 and 0.3 cm. The specimen is totally submitted in one cassette. B. Received in fixative is one container labeled with the patient's name and designated GE junction biopsy. The specimen consists of three irregular fragments of light jeong soft tissue that in aggregate measure 0.2 to 0.4 cm. The specimen is totally submitted in one cassette. BRIANNE/ 09/19/2024 CPT:56167m7,30577 -------- Patient Age/Sex Location Account Attending Physician -------- DANYA MARTINEZ 49/F EN [id number] Dr. Vinh Man MD -------- Signed (signature on file) Dr. Radha Faust MD 09/23/24 1717 -------- Normal [facility] Comment on above: Performed By: #### P [facility] #### [facility] [address] [place] [address], [address] MR/POSTOP.ANE 09-19-2024 MR/POSTOP.[facility] Medical Records Department [address] [place] [address] Anesthesia Postop Eval I 09/19/241044 MR#: [id number] Acct: [id number] Name: DANYA MARTINEZ Maral Rep #: [id number] : 1975 49 From: Bharat Curry PCP: Dr. Mika Coughlin MD [place] [place] Race: C Location: [place] [address] Anesthesia: Postop Eval I Current Vital Signs Temperature: 98.2 F Pulse Rate: 62 Blood Pressure: 102/70 Respiratory Rate: 16 Pulse Ox: 98 Oxygen Delivery Method: Room Air Assessment Airway patent: Yes Spontaneous unlabored respirations: Yes Mental status: Asleep nausea: No Vomiting: No Anesthesia Complication: No Fluid Hydration Crystalloid volume administer (ml): 700 Total IV fluid infused: 700 Progress Note Anesthesia document: Postop Eval 1 completed: Yes 09/19/24 1046 Date Bharat Payne Signature: Date CC: Signed Normal [facility] MR/[id number] 09-19-2024 MR/POSTOPAN2 [facility] Medical Records Department [address] [place] [address] Anesthesia Postop Eval II 09/19/24 1124 MR#: [id number] Acct: [id number] Name: DANYA AMRTINEZ Rep #: [id number] : 1975 49 From: Andrés Coleman MD PCP: Dr. Mika Coughlin MD Status:[facility] Y Race: C Location: [place] [address] Anesthesia Postop Eval I Sum Postop Eval Completion status Anesthesia document: Postop Eval 1 completed: Yes Anesthesia Postop Eval I Summary Anesthesia Postop Eval I Summary: Anesthesia Postop Eval I: Assessment Summary Airway patent Yes 09/19/24 10:46 [email or web address] Spontaneous unlabored Yes 09/19/24 10:46 [email or web address] respirations Mental status Asleep 09/19/24 10:46 [email or web address] nausea No 09/19/24 10:46 [email or web address] Vomiting No 09/19/24 10:46 [email or web address] Anesthesia Postop Eval I: Fluid Summary Crystalloid volume administer 700 09/19/24 10:46 [email or web address] (ml) Colloids volume administered ( ml) Blood Product volume administered (ml) Total IV fluid infused 700 09/19/24 10:46 [email or web address] Anesthesia Postop Eval I: Summary Notes Anesthesia Complication No 09/19/24 10:46 [email or web address] Anesthesia Complication Comment: Post-operative progress note Anesthesia: Postop Eval II Evaluation Mental status: Awake Pain Level: 0 nausea: No Vomiting: No 09/19/24 1124 Date Andrés Coleman MD Cosign Signature: Date CC: Signed Normal [facility] ,Urineon 09-19-2024 Beta HCG ( test) Ql (U) Negative Normal [facility] Comment on above: Result Comment: Very dilute urine specimens, as indicated by a low specific gravity, may not contain underwriting account representative levels of hCG. If is still suspected, a first morning urine specimen should be collected 48 hours later and tested. Performed By: #### L [id number] #### [facility] [address] [facility]. [place], [place], [phone] Urine testOrdered By: Andrés Coleman on 09-19-2024 HCG ( test) Ql (U) Negative [facility] Comment on above: Very dilute urine sp ecimens, as indicated by a low specificgravity, may not contain underwriting account representative levels of hCG. If is still suspected, a first morning urinespecimen should be collected 48 hours later and tested. Breast imaging reportOrdered By: Shawn Richter on 08-23-2024 Study report [facility] Imaging Services [address] [place] [address] SCRN MAMM (CAD)W/KALANI BILAT MR#: [id number] Acct: [id number] Name: DANYA MARTINEZ Rep #: [id number] : 1975 F 49 From: Emanuel Richter MD PCP: Dr. Mika Coughlin MD Status: RE G CLI Study:SCRN MAMM (CAD)W/KALANI BILAT Date of Exa m: 08/23/24 Exam# [id number] Ordering Dr: Mika Coughlin MD EXAM: SCRN MAMM (CAD)W/KALANI BILAT DATE: 08/23/2024 CLINICAL HISTORY: F, Age 49 y/o , SCREENING Grandmother with breast cancer. BREAST CANCER RISK ASSESSMENT: Not assessed. TECHNIQUE: Bilateral screening digital breast tomosynthesis with 2D and 3D images. Computeraided detection. COMPARISON: Prior exam(s) dated October 11, 2021.. FINDINGS: TISSUE DENSITY: The breast tissue is almost entirely fatty. Bilateral Breast Mammographic Findings: No significant masses, calcifications or other abnormalities are identified. Stable small benign-appearing bilateral axillary lymph nodes. No suspicious masses, areas of developing architectural distortion, or suspicious calcifications. There has been no significant interval change. BI/SCRN MAMM (CAD)W/KALANI BILAT IMPRESSION: OVERALL FINAL ASSESSMENT: BIRADS 2 BENIGN FINDING RECOMMENDATION: Routine annual follow-up in 1 Year A letter with findings and recommendations will be mailed to the patient. Reading Location: [place] [address] CC: Dr. Mika Coughlin MD ~ Butcher'S Assistant: Signed [facility] SCRN MAMM (CAD)W/KALANI BILATo n 08-23-2024 SCRN MAMM (CAD)W/KALANI BILAT [facility] Imaging Services [address] [place] [address] SCRN MAMM (CAD)W/KALANI BILAT MR#: [id number] Acct: [id number] Name: DANYA MARTINEZ Rep #: [id number] : 1975 F 49 From: Shawn escobedo MD PCP: Dr. Mika Coughlin MD Status: [facility] Study: SCRN MAMM (CAD)W/KALANI BILAT Date of Exam: 08/14 Exam# [id number] Ordering Dr: Mika Coughlin MD EXAM: SCRN MAMM (CAD)W/KALANI BILAT DATE: 08/23/2024 CLINICAL HISTORY: F, Age 49 y/o , SCREENING Grandmother with breast cancer. BREAST CANCER RISK ASSESSMENT: Not assessed. TECHNIQUE: Bilateral screening digital breast tomosynthesis with 2D and 3D images. Computer aided detection. COMPARISON: Prior exam(s) dated October 11, 2021.. FINDINGS: TISSUE DENSITY: The breast tissue is almost entirely fatty. Bilateral Breast Mammographic Findings: No significant masses, calcifications or other abnormalities are identified. Stable small benign- appearing bilateral axillary lymph nodes. No suspicious masses, areas of developing architectural distortion, or suspicious calcifications. There has been no significant interval change. BI/SCRN MAMM (CAD)W/KALANI BILAT IMPRESSION: OVERALL FINAL ASSESSMENT: BIRADS 2 BENIGN FINDING RECOMMENDATION: Routine annual follow-up in 1 Year A letter with findings and recommendations will be mailed to the patient. Reading Location: [place] [address] CC: Dr. Mika Coughlin MD Butcher'S Assistant: Signed Normal [facility] Thyroidon 08-23-2024 Thyroid [facility] Services [address] [place] [address] Thyroid MR#: [id number] Acct: [id number] Name: DANYA MARTINEZ Rep #: [id number] : 1975 F 49 From: Shawn escobedo MD PCP: Dr. Mika Coughlin MD Status: REG CLI Study: Thyroid Date of Exam: 08/23/24 Exam# [id number] Ordering Dr: Mika Coughlin MD PROCEDURE: THYROID 08/23/2024 REASON FOR EXAM: Thyroid nodules. Follow-up examination. TECHNIQUE: High-frequency thyroid ultrasound, including grayscale and color-flow images. REFERENCE LINKS: TI-RADS Chart: [email or web address] TI-RADS Calculator Tool with Reference Images: [email or web address] -[email or web address]/ COMPARISON: Prior study dated December 09, 2023. FINDINGS: Right thyroid lobe size: 5.6 cm 1.7 cm 1.9 cm Left thyroid lobe size: 5.5 cm 2.2 cm 1.7 cm Isthmus: 0.3 cm Background parenchymal echotexture is heterogeneous Nodules: . Lobe: Right, Location: Upper pole, Size: 1.3 cm x 1.2 cm 1 cm, Stability: Stable Composition: Solid or almost completely solid (+2) Echogenicity: Hypoechoic (+2) Margin: Smooth (+0) Shape: Wider than tall (+0) Echogenic Foci: None (+0) TI-RADS: <2 = TR 1 * 2 = TR 2 * 3 = TR 3 * 4-6 = TR 4 * >6 = TR 5 . Lobe: Left, Location: Upper pole, Size: 1.8 cm 1.3 cm 1.1 cm cm, Stability: Stable Composition: Mixed cystic and solid (+1) Echogenicity: Hypoechoic (+2) Margin: Smooth (+0) Shape: Wider than tall (+0) Echogenic Foci: None (+0) TI-RADS: <2 = TR 1 * 2 = TR 2 * 3 = TR 3 * 4-6 = TR 4 * >6 = TR 5 US/Thyroid IMPRESSION: Enlarged thyroid with heterogeneous echotexture. Stable bilateral thyroid nodules. RECOMMENDATION: Based on most suspicious nodule. Nodule size = largest diameter Only evaluate nodule if =>5 mm. Growth > 20% in 2 dimensions = worsening. Follow up to 4 nodules. Recommend biopsy for no more than 2 nodules. Reading Location: [place] [address] CC: Dr. Mika Coughlin MD Butcher'S Assistant: Signed Normal [facility] Surgery Visit Reporton 08-15 Surgery Visit Report [facility] [address] [place] [address] OFFICE VISIT Date of Service: 08/15/24 MR#: [id number] Acct: [id number] Name: DANYA MARTINEZ Rep #: [id number] : 1975 Provider: Dr. Vinh cohen MD Age/Sex: 49/F Location: [facility] Status: Signed Intake Vital Signs 07/30/23 09:25 08/15/24 10:10 Height 5 ft 8 in 5 ft 8 in Weight: 299 lb BMI 45.4 BP 106/74 Blood Pressure Location Rt brachial Position Sitting Respiration 18 Pulse 71 Pulse Source Monitor Temp 97.2 F L Temp Source Temporal Pulse Oximetry (%) 99 Oxygen Delivery Method room air Intake Visit Reasons: COLONOSCOPY, EGD Chief Complaint: colonoscopy Allergies Penicillins Allergy (Unknown, Verified 07/30/23 09:35) A CHILD, UNKNOWN RXN iodine Adverse Reaction (Verified 07/30/23 09:35) Rash Medications ???Medication ???Instructions ???Recorded ???Confirmed ???Type fluticasone propionate 50 50 mcg intranasal QDAY PRN 8 03/06/22 History mcg/actuation nasal allergies spray,suspension (Flonase Allergy Relief) sertraline 100 mg tablet (Zoloft) 100 mg PO QDAY 03/20/17 03/12/23 History etonogestrel 0.12 mg-ethinyl 1 vag ring vaginal Q4W #1 ea 02/0112/21/20 Rx estradiol 0.015 mg/24 hr vaginal ring (NuvaRing) multivitamin 1 tab PO DAILY 03/12/23 03/12/23 H istory omeprazole 40 mg capsule,delayed 40 mg PO DAILY 03/12/23 03/12/23 H istory release PFSH Medical History Screening for colon cancer Family history of colon cancer IGT (impaired glucose tolerance) Morbid obesity Allergic rhinitis Anxiety Surgical History S/P thyroid biopsy S/P wisdom tooth extraction S/P tonsillectomy Family History Father Colon cancer Mother CVA (cerebral vascular accident) Hypertension Diabetes Heart disease Sister Seizures Social History Smoking Status: Never smoker second hand exposure: No alcohol intake: never substance use type: does not use caffeine: No what type of physical activity do you participate in: none frequency: does not exercise seatbelt use: always Female Reproductive History Menstrual Ab spontaneous: 1 HPI HPI HPI: The patient is a 49-year-old female who is being seen today to schedule EGD and colonoscopy. She does have a family history of colon cancer. Her father and her paternal grandmother both of colon cancer. She herself is never had colon polyps although her sister has had colon polyps. Her last colonoscopy was in 2018. She denies any new GI issues or complaints. She does also have chronic reflux disease and has been on omeprazole for about a year. She has never had an EGD as a baseline. ROS General General: No weight change, appetite, fatigue, colon cancer, breast cancer or weakness HEENT HEENT: No difficulty swallowing, eye injury, eye surgery, swollen glands or hoarseness Endo Endocrine: No thyroid disease, diabetes mellitus, thyroid cancer, Hair loss, heat intolerance or cold intolerance Skin Skin: No rash or changing moles Musc Musculoskeletal: No back problems, arthritis, rheumatoid arthritis, gout or joint pain Cardio Cardiovascular: No murmur, pacemaker, heart disease, atrial fibrillation, high blood pressure, heart attack, heart stent, palpitations, shortness of breath with exertion or chest pain Psych Psychiatric: Yes depression and anxiety; No hearing voices Resp Respiratory: No shortness of breath, No sleep apnea, No cough, No COPD, No asthma, No emphysema and No wheezing Gastro Gastrointestinal: No abdominal pain, No nausea or vomiting, No diarrhea, No constipation, No blood in stool, No acid reflux, No hemorrhoids, No ulcers, No gallbladder problem and No black,tarry stools Gwyn Hematologic: No blood thinners, No blood disorders, No bleeding, No anemia and No blood clots Neuro Neurologic: No numbness, No tingling and No weakness Exam Const General: cooperative, comfortable and no acute distress [facility] Head: normal to inspection, normocephalic and atraumatic Eyes General: appearance normal, both eyes and all related structures Neck Neck: normal visual inspection Assessment and Plan Assessment and Plan (1) Family history of colon cancer: Status: Acute Comment: Father (2) Screening for colon cancer: Status: Acute (3) GERD (gastroesophageal reflux disease): Status: Acute Qualifiers: Esophagitis presence: esophagitis presence not specified Qualified Code(s): K21.9 - Gastro- esophageal reflux disease without es (more content not included)... Normal [facility] Ironon 08-13-2024 Iron [Mass/Vol] 45 ug/dL Low 50-170 [facility] Comment on above: Order Comment: Order Date: 08/12/24 Order Info: 0786-1 - CMP Order Info: [id number] - LIPID Order Date: 11/18/23 Order Info: 2498-4 - FE Order Info: 2276-4 - IRENE Performed By: #### L [id number] #### [facility] [address] [place], [place], [id number] Absolute lymphocyte countOrd ered By: Mika Coughlin on 08-12-2024 Lymphocytes Auto (Unsp spec) [#/Vol] 1.92 10*3/uL 0.83-4.51 [facility] Absolute neutrophil countOrd ered By: Mika Coughlin on 08-12-2024 Neutrophils (Bld) [#/Vol] 3.4 10*3/uL 2.0-7.7 [facility] Anion gap in Serum or Plasma Ordered By: Mika Coughlin on 08-12-2024 Anion gap [Moles/Vol] 10 mmol/L 5- [facility] Automated lymphocyte count a s percentage of total leukocytesOrdered By: Mika Coughlin on 08-12-2024 Lymphocytes/100 WBC Auto (Unsp spec) 33.0 % - [facility] BUN/creatinine ratioOrdered By: Mika Coughlin on 08-12-2024 Urea nitrogen/Creatinine [Mass ratio] 13.9 mg/mg 10- [facility] Basophil percentageOrdered B y: Mika Coughlin on 08-12-2024 Basophils/100 WBC (Bld) 0.3 % 0-1 [facility] Bilirubin, totalOrdered By: Mika Coughlin on 08-12-2024 Bilirubin [Mass/Vol] 0.30 mg/dL 0.00-1.30 [facility] CBC W/Diff, Automatedon 07-16 Absolute Lymph 1.92 X10 3/uL Normal 0.83-4.51 [facility] Comment on above: Order Comment: Order Date: 08/12/24 Order Info: 0184-1 - CBCD Performed By: #### L 100.0100, L500.4100, [id number] #### [facility] [address] [place], [place], [id number] Absolute Neut 3.4 X10 3/uL Normal 2.0-7.7 [facility] Comment on above: Order Comment: Order Date: 08/12/24 Order Info: 0184-1 - CBCD Performed By: #### L 100.0100, L500.4100, [id number] #### [facility] [address] [place], [address] Basophils/100 WBC (Bld) 0.3 % Normal 0-1 [facility] Comment on above: Order Comment: Order Date: 08/12/24 Order Info: 0184-1 - CBCD Performed By: #### L 100.0100, L500.4100, [id number] #### [facility] [address] [place], [address] Eosinophils/100 WBC (Bld) 2.6 % Normal 0-5 [facility] Comment on above: Order Comment: Order Date: 08/12/24 Order Info: 0184-1 - CBCD Performed By: #### L 100.0100, L500.4100, [id number] #### [facility] [address] [place], [address] Erythrocyte distribution width (RBC) [Ratio] 15.2 % High 11.6-14.6 [facility] Comment on above: Order Comment: Order Date: 08/12/24 Order Info: 0184-1 - CBCD Performed By: #### L 100.0100, L500.4100, [id number] #### [facility] [address] [place], [address] Hematocrit (Bld) [Volume fraction] 37.0 % Normal 37-47 [facility] Comment on above: Order Comment: Order Date: 08/12/24 Order Info: 0184-1 - CBCD Performed By: #### L 100.0100, L500.4100, [id number] #### [facility] [address] [place], [address] Hemoglobin (Bld) [Mass/Vol] 11.5 g/dL Low 12.0-15.0 [facility] Comment on above: Order Comment: Order Date: 08/12/24 Order Info: 0184- - CBCD Performed By: #### L 100.0100, L500.4100, [id number] #### [facility] [address] [place], [address] IG% 0.200 Normal 0.0-0.9 [facility] Comment on above: Order Comment: Order Date: 08/12/24 Order Info: 018- - CBCD Result Comment: IG% - Immature Granulocytes (promyelocytes, myelocytes and metamyelocytes) > 1% indicates that a LEFT SHIFT is Present. Performed By: #### L 100.0100, L500.4100, L500.4050 #### [facility] [address] [place], [address] Lymphocytes/100 WBC (Bld) 33.0 % Normal 19-41 [facility] Comment on above: Order Comment: Order Date: 08/12/24 Order Info: 018- - CBCD Performed By: #### L 100.0100, L500.4100, [id number] #### [facility] [address] [place], [address] MCH (RBC) [Entitic mass] 26.9 pg Low 27.0-32.0 [facility] Comment on above: Order Comment: Order Date: 08/12/24 Order Info: 0184- - CBCD Performed By: #### L 100.0100, L500.4100, [id number] #### [facility] [address] [place], [address] MCHC (RBC) [Mass/Vol] 31.1 g/dL Low 32-36 [facility] Comment on above: Order Comment: Order Date: 08/12/24 Order Info: 018- - CBCD Performed By: #### L 100.0100, L500.4100, [id number] #### [facility] [address] [place], [address] MCV (RBC) [Entitic vol] 86.7 fL Normal 81-99 [facility] Comment on above: Order Comment: Order Date: 08/12/24 Order Info: 0184-1 - CBCD Performed By: #### L 100.0100, L500.4100, [id number] #### [facility] [address] [place], [address] Monocytes/100 WBC (Bld) 5.8 % Normal 0-10 [facility] Comment on above: Order Comment: Order Date: 08/12/24 Order Info: 0184-1 - CBCD Performed By: #### L 100.0100, L500.4100, [id number] #### [facility] [address] [place], [address] Neutrophils/100 WBC (Bld) 58.1 % Normal 47-70 [facility] Comment on above: Order Comment: Order Date: 08/12/24 Order Info: 0184-1 - CBCD Performed By: #### L 100.0100, L500.4100, [id number] #### [facility] [address] [place], [address] Nucleated RBC (Bld) [#/Vol] 0 10*3/uL Normal 0-5 [facility] Comment on above: Order Comment: Order Date: 08/12/24 Order Info: 0184-1 - CBCD Performed By: #### L 100.0100, L500.4100, [id number] #### [facility] [address] [place], [address] Platelet mean volume (Bld) [Entitic vol] 10.8 fL Normal 6.2-12.0 [facility] Comment on above: Order Comment: Order Date: 08/12/24 Order Info: 0184-1 - CBCD Performed By: #### L 100.0100, L500.4100, L500.4050 #### [facility] [address] [place], [address] Platelets (Bld) [#/Vol] 310 10*3/uL Normal 150-450 [facility] Comment on above: Order Comment: Order Date: 08/12/24 Order Info: 0184-1 - CBCD Performed By: #### L 100.0100, L500.4100, L500.4050 #### [facility] [address] [place], [address] RBC (Bld) [#/Vol] 4.27 10*6/uL Normal 4.2-5.4 [facility] Comment on above: Order Comment: Order Date: 08/12/24 Order Info: 0184- - CBCD Performed By: #### L 100.0100, L500.4100, L500.4050 #### [facility] [address] [place], [address] RDW SD 48.1 fl High 35.1-43.9 [facility] Comment on above: Order Comment: Order Date: 08/12/24 Order Info: 018-1 - CBCD Performed By: #### L 100.0100, L500.4100, L500.4050 #### [facility] [address] [place], [address] WBC (Bld) [#/Vol] 5.8 10*3/uL Normal 4.4-11.0 [facility] Comment on above: Order Comment: Order Date: 08/12/24 Order Info: 0184-1 - CBCD Performed By: #### L 100.0100, L500.4100, L500.4050 #### [facility] [address] [place], [address] Calculated very low density lipoprotein (VLDL) cholesterol measurementOrdered By: Mika Coughlin on 08-12-2024 Calculated very low density lipoprotein (VLDL) cholesterol measurement 22 mg/dL 5-40 [facility] Carbon dioxide, total [Moles /volume] in Central venous bloodOrdered By: Mika Coughlin on 08-12-2024 CO2 [Moles/Vol] 24.7 mmol/L 21.0-32.0 [facility] Chloride assayOrdered By: Jolynn Coughlin on 08-12-2024 Chloride [Moles/Vol] 103 mmol/L 98-108 [facility] Comprehensive Metabolic Prof ilon 08-12-2024 Albumin [Mass/Vol] 4.1 g/dL Normal 3.5-5.0 [facility] Comment on above: Order Comment: Order Date: 08/12/24 Order Info: 0786-1 - CMP Order Info: [id number] - LIPID Order Date: 11/18/23 Order Info: 2497-06 FE Order Info: 2275-06 - IRENE Performed By: #### L 100.0100, L500.4100, L500.4050 #### [facility] [address] [place], [place], [address] Albumin/Globulin [Mass ratio] 1.2 {ratio} Normal 0.9-2.4 [facility] Comment on above: Order Comment: Order Date: 08/12/24 Order Info: 0786- - CMP Order Info: [id number] - LIPID Order Date: 11/18/23 Order Info: 2497-06 FE Order Info: 2275-06 - IRENE Performed By: #### L 100.0100, L500.4100, L500.4050 #### [facility] [address] [place], [place], [address] ALK PHOS 71 U/L Normal 35-104 [facility] Comment on above: Order Comment: Order Date: 08/12/24 Order Info: 0786-1 - CMP Order Info: [id number] - LIPID Order Date: 11/18/23 Order Info: 2497-06 FE Order Info: 2275-06 - IRENE Performed By: #### L 100.0100, L500.4100, L500.4050 #### [facility] [address] [place], [address] ALT [Catalytic activity/Vol] 19 U/L Normal <=34 [facility] Comment on above: Order Comment: Order Date: 08/12/24 Order Info: 785-1 - CMP Order Info: [id number] - LIPID Order Date: 11/18/23 Order Info: 2497-06 - FE Order Info: 2275-06 - IRENE Performed By: #### L 100.0100, L500.4100, L500.4050 #### [facility] [address] [place], [address] AST [Catalytic activity/Vol] 22 U/L Normal <=31 [facility] Comment on above: Order Comment: Order Date: 08/12/24 Order Info: 785- - CMP Order Info: - LIPID Order Date: 11/18/23 Order Info: 2497-06 - FE Order Info: 2275-06 - IRENE Performed By: #### L 100.0100, L500.4100, L500.4050 #### [facility] [address] [place], [address] Bilirubin [Mass/Vol] 0.30 mg/dL Normal 0.00-1.30 [facility] Comment on above: Order Comment: Order Date: 08/12/24 Order Info: 785-03 - CMP Order Info: - LIPID Order Date: 11/18/23 Order Info: 2497-06 - FE Order Info: 2275-06 - IRENE Performed By: #### L 100.0100, L500.4100, L500.4050 #### [facility] [address] [place], [address] BUN/CRE 13.9 RATIO Normal 10-20 [facility] Comment on above: Order Comment: Order Date: 08/12/24 Order Info: 785-1 - CMP Order Info: - LIPID Order Date: 11/18/23 Order Info: 2498-4 - FE Order Info: 2275-06 - IRENE Performed By: #### L 100.0100, L500.4100, L500.4050 #### [facility] [address] [place], [address] Calcium [Mass/Vol] 9.0 mg/dL Normal 7.6-11.0 [facility] Comment on above: Order Comment: Order Date: 08/12/24 Order Info: 0786-1 - CMP Order Info: [id number] - LIPID Order Date: 11/18/23 Order Info: 2497-06 - FE Order Info: 2275-06 - IRENE Performed By: #### L 100.0100, L500.4100, L500.4050 #### [facility] [address] [place], [address] Chloride [Moles/Vol] 103 mmol/L Normal 98-108 [facility] Comment on above: Order Comment: Order Date: 08/12/24 Order Info: 785- - CMP Order Info: [id number] - LIPID Order Date: 11/18/23 Order Info: 2497-06 - FE Order Info: 2275-06 - IRENE Performed By: #### L 100.0100, L500.4100, L500.4050 #### [facility] [address] [place], [address] CO2 [Moles/Vol] 24.7 mmol/L Normal 21.0-32.0 [facility] Comment on above: Order Comment: Order Date: 08/12/24 Order Info: 0786-1 - CMP Order Info: [id number] - LIPID Order Date: 11/18/23 Order Info: 2497-06 - FE Order Info: 2275-06 - IRENE Performed By: #### L 100.0100, L500.4100, L500.4050 #### [facility] [address] [place], [address] Creatinine [Mass/Vol] 0.92 mg/dL Normal 0.70-1.20 [facility] Comment on above: Order Comment: Order Date: 08/12/24 Order Info: 785- - CMP Order Info: - LIPID Order Date: 11/18/23 Order Info: 2497-06 FE Order Info: 2275-06 - IRENE Performed By: #### L 100.0100, L500.4100, L500.4050 #### [facility] [address] [place], [address] GAP 10 Normal 5-15 [facility] Comment on above: Order Comment: Order Date: 08/12/24 Order Info: 785- - CMP Order Info: - LIPID Order Date: 11/18/23 Order Info: 2497-06 FE Order Info: 2275-06 - IRENE Performed By: #### L 100.0100, L500.4100, L500.4050 #### [facility] [address] [place], [address] GFR/1.73 sq M.predicted among non-blacks MDRD (S/P/Bld) [Vol rate/Area] 77 mL/min/{1.73_m2} Normal >60 [facility] Comment on above: Order Comment: Order Date: 08/12/24 Order Info: 785-03 - CMP Order Info: - LIPID Order Date: 11/18/23 Order Info: 2497-06 FE Order Info: 2275-06 - IRENE Result Comment: mL/m in/1.73m2 CKD-EPI Creatinine Equation (2020) Performed By: #### L 100.0100, L500.4100, L500.4050 #### [facility] [address] [place], [address] Globulin (S) [Mass/Vol] 3.3 g/dL Normal 2.2-4.2 [facility] Comment on above: Order Comment: Order Date: 08/12/24 Order Info: 07- - CMP Order Info: - LIPID Order Date: 11/18/23 Order Info: 2497-06 - FE Order Info: 2275-06 - IRENE Performed By: #### L 100.0100, L500.4100, L500.4050 #### [facility] [address] [place], [address] Glucose [Mass/Vol] 101 mg/dL High 70-99 [facility] Comment on above: Order Comment: Order Date: 08/12/24 Order Info: 0786-1 - CMP Order Info: [id number] - LIPID Order Date: 11/18/23 Order Info: 2497-06 - FE Order Info: 2275-06 - IRENE Performed By: #### L 100.0100, L500.4100, L500.4050 #### [facility] [address] [place], [address] Potassium [Moles/Vol] 4.1 mmol/L Normal 3.3-5.1 [facility] Comment on above: Order Comment: Order Date: 08/12/24 Order Info: 0786- - CMP Order Info: [id number] - LIPID Order Date: 11/18/23 Order Info: 2497-06 - FE Order Info: 2275-06 - IRENE Performed By: #### L 100.0100, L500.4100, L500.4050 #### [facility] [address] [place], [address] Sodium [Moles/Vol] 137 mmol/L Normal 133-145 [facility] Comment on above: Order Comment: Order Date: 08/12/24 Order Info: 0786-1 - CMP Order Info: [id number] - LIPID Order Date: 11/18/23 Order Info: 2497-06 - FE Order Info: 2275-06 - IRENE Performed By: #### L 100.0100, L500.4100, L500.4050 #### [facility] [address] [place], [address] T PROT 7.4 g/dL Normal 5.9-8.4 [facility] Comment on above: Order Comment: Order Date: 08/12/24 Order Info: 0786-1 - CMP Order Info: [id number] - LIPID Order Date: 11/18/23 Order Info: 2497-06 - FE Order Info: 2275-06 - IRENE Performed By: #### L 100.0100, L500.4100, L500.4050 #### [facility] [address] [place], [address] Urea nitrogen [Mass/Vol] 13 mg/dL Normal 4-19 [facility] Comment on above: Order Comment: Order Date: 08/12/24 Order Info: 0786 - CMP Order Info: - LIPID Order Date: 11/18/23 Order Info: 2497-06 FE Order Info: 2275-06 - IRENE Performed By: #### L 100.0100, L500.4100, L500.4050 #### [facility] [address] [place], [place], [address] Eosinophil percentageOrdered By: Mika Coughlin on 08-12-2024 Eosinophils/100 WBC (Bld) 2.6 % 0-5 [facility] Erythrocyte distribution wid th ratioOrdered By: Mika Coughlin on 08-12-2024 Erythrocyte distribution width (RBC) [Ratio] 15.2 % High 11.6-14.6 [facility] Erythrocyte distribution wid th standard deviationOrdered By: Mika Coughlin on 08-12-2024 Erythrocyte distribution width (RBC) [Ratio] 48.1 fl High 35.1-43.9 [facility] Ferritinon 08-12-2024 Ferritin [Mass/Vol] 132 ng/mL Normal 22-378 [facility] Comment on above: Order Comment: Order Date: 08/12/24 Order Info: [id number] - CMP Order Info: - LIPID Order Date: 11/18/23 Order Info: [id number] - FE Order Info: [id number] - IRENE Performed By: #### L [id number] #### [facility] [address] [place], [place], [address] Glomerular filtration rate ( GFR) estimation/1.73 sq m using serum, plasma, or whole bOrdered By: Mika Coughlin on 08-12-2024 GFR/1.73 sq M.predicted among non-blacks MDRD (S/P/Bld) [Vol rate/Area] 77 mL/min/{1.73_m2} >60 [facility] Comment on above: mL/min/1.73m2 CKD-EP I Creatinine Equation (2020) Hematocrit Auto (Bld) [Volum e fraction]Ordered By: Mika Coughlin on 08-12-2024 Hematocrit (Bld) [Volume fraction] 37.0 % 37-47 [facility] Hemoglobin measurementOrdere d By: Mika Coughlin on 08-12-2024 Hemoglobin (Bld) [Mass/Vol] 11.5 g/dL Low 12.0-15.0 [facility] Immature granulocytes/100 WB C Auto (Bld)Ordered By: Mika Coughlin on 08-12-2024 Immature granulocytes/100 WBC (Bld) 0.200 % 0.0-0.9 [facility] Comment on above: IG% - Immature Granu locytes (promyelocytes, myelocytes and metamyelocytes) > 1% indicates that a LEFT SHIFT is Present. Iron measurement (mass/mass) Ordered By: Mika Coughlin on 08-12-2024 Iron (Unsp spec) [Mass/Mass] 45 ug/dL Low 50-170 [facility] LDL calc ser/plasOrdered By: Mika Coughlin on 08-12-2024 Cholesterol in LDL [Mass/Vol] 107 mg/dL [facility] Comment on above: Jnihitxgeu=425-391 m g/dL & Higher Cbcm=539 mg/dL or greater Laboratory - Chemistry and C hemistry - challengeOrdered By: Mika Coughlin on 08-12-2024 AST [Catalytic activity/Vol] 22 U/L <32 [facility] Lipid Profileon 08-12-2024 CHOL:HDL 3.76 Normal [facility] Comment on above: Order Comment: Order Date: 08/12/24 Order Info: [id number] - CMP Order Info: [id number] - LIPID Order Date: 11/18/23 Order Info: [id number] - FE Order Info: [id number] - IRENE Performed By: #### L 100.0100, L500.4100, [id number] #### [facility] [address] [place], [address] Cholesterol [Mass/Vol] 176 mg/dL Normal <=200 [facility] Comment on above: Order Comment: Order Date: 08/12/24 Order Info: [id number] - CMP Order Info: [id number] - LIPID Order Date: 11/18/23 Order Info: [id number] Order Info: [id number] - IRENE Result Comment: Chol esterol level, Desirable <200 mg/dL Borderline high cholesterol 200-239 mg/dL High cholesterol >=240 mg/dL Recommendations of the NCEP Adult Treatment Panel for the following risk-cutoff thresholds for the [place] population. Performed By: #### L 100.0100, L500.4100, [id number] #### [facility] [address] [place], [address] Cholesterol in HDL [Mass/Vol] 47 mg/dL Normal [facility] Comment on above: Order Comment: Order Date: 08/12/24 Order Info: [id number] - CMP Order Info: [id number] - LIPID Order Date: 11/18/23 Order Info: 2497-06 Order Info: [id number] - IRENE Result Comment: Latesha onal Cholesterol Education Program (NCEP) guidelines: <40 mg/dL: Low HDL-cholesterol (major risk factor for CHD) >= 60 mg/dL: High HDL-cholesterol (negative risk factor for CHD) HDL-cholesterol is affected by a number of factors, e.g. smoking, exercise, hormones, sex and age. Performed By: #### L 100.0100, [id number], [id number] #### [facility] [address] [place], [address] Cholesterol in LDL [Mass/Vol] 107 mg/dL Normal [facility] Comment on above: Order Comment: Order Date: 08/12/24 Order Info: [id number] - CMP Order Info: [id number] - LIPID Order Date: 11/18/23 Order Info: 2497-06 Order Info: [id number] - IRENE Result Comment: Bord rhudef=911-438 mg/dL Higher Hcuf=926 mg/dL or greater Performed By: #### L 100.0100, L500.4100, [id number] #### [facility] [address] [place], [address] Cholesterol in VLDL [Mass/Vol] 22 mg/dL Normal 5-40 [facility] Comment on above: Order Comment: Order Date: 08/12/24 Order Info: [id number] - CMP Order Info: [id number] - LIPID Order Date: 11/18/23 Order Info: 2497-06 Order Info: [id number] - IRENE Performed By: #### L 100.0100, [id number], [id number] #### [facility] [address] [place], [address] Triglyceride [Mass/Vol] 112 mg/dL Normal [facility] Comment on above: Order Comment: Order Date: 08/12/24 Order Info: [id number] - CMP Order Info: [id number] - LIPID Order Date: 11/18/23 Order Info: [id number] Order Info: [id number] - IRENE Result Comment: The drugs N-Acetylcysteine and Metamizole may falsely depress this assay. Normal range: <150 mg/dL Borderline High: 150-199 mg/dL High: 200-499 mg/dL Very High: >500 mg/dL Performed By: #### L 100.0100, [id number], [id number] #### [facility] [address] [place], [address] MCV (mean corpuscular volume ) determinationOrdered By: Mika Coughlin on 08-12-2024 MCV (RBC) [Entitic vol] 86.7 fL 81-99 [facility] Mean corpuscular hemoglobin (MCH) determinationOrdered By: Mika Coughlin on 08-12-2024 MCH (RBC) [Entitic mass] 26.9 pg Low 27.0-32.0 [facility] Mean corpuscular hemoglobin concentration (MCHC) determinationOrdered By: Mkia Coughlin on 08-12-2024 MCHC (RBC) [Mass/Vol] 31.1 g/dL Low 32-36 [facility] Mean platelet volume determi nationOrdered By: Mika Coughlin on 08-12-2024 Platelet mean volume (Bld) [Entitic vol] 10.8 fL 6.2-12.0 [facility] Monocyte percentageOrdered B y: Mika Coughlin on 08-12-2024 Monocytes/100 WBC (Bld) 5.8 % 0-10 [facility] Neutrophil percentageOrdered By: Mika Coughlin on 08-12-2024 Neutrophils/100 WBC (Bld) 58.1 % 47-70 [facility] Nucleated red blood cell per centageOrdered By: Mika Coughlin on 08-12-2024 Nucleated RBC/100 WBC (Bld) [Ratio] 0 % 0-5 [facility] Platelet countOrdered By: Jolynn Coughlin on 08-12-2024 Platelets (Bld) [#/Vol] 310 10*3/uL 150-450 [facility] Potassium measurement (mass/ volume)Ordered By: Mika Coughlin on 08-12-2024 Potassium (Unsp spec) [Mass/Vol] 4.1 mmol/L 3.3-5.1 [facility] RBC Auto (Bld) [#/Vol]Ordere d By: Mika Coughlin on 08-12-2024 RBC (Bld) [#/Vol] 4.27 10*6/uL 4.2-5.4 [facility] Screening total cholesterol/ high density lipoprotein (HDL) cholesterol ratioOrdered By: Mika Coughlin on 08-12-2024 Cholesterol.total/Choles terol in HDL [Mass ratio] 3.76 {ratio} [facility] Serum creatinine measurement (mass/volume)Ordered By: Mika Coughlin on 08-12-2024 Creatinine [Mass/Vol] 0.92 mg/dL 0.70-1.20 [facility] Serum globulin measurementOr dered By: Mika Coughlin on 08-12-2024 Globulin (S) [Mass/Vol] 3.3 g/dL 2.2-4.2 [facility] Serum glucose measurement (m ass/volume)Ordered By: Mika Coughlin on 08-12-2024 Glucose [Mass/Vol] 101 mg/dL High 70-99 [facility] Serum or plasma alanine barajas otransferase (ALT) measurementOrdered By: Mika Coughlin on 08-12-2024 ALT [Catalytic activity/Vol] 19 U/L <35 [facility] Serum or plasma albumin liban urement (mass/volume)Ordered By: iMka Coughlin on 08-12-2024 Albumin [Mass/Vol] 4.1 g/dL 3.5-5.0 [facility] Serum or plasma albumin/glob ulin mass ratioOrdered By: Mika Coughlin on 08-12-2024 Albumin/Globulin [Mass ratio] 1.2 {ratio} 0.9-2.4 [facility] Serum or plasma alkaline yvette sphatase measurementOrdered By: Mika Coughlin on 08-12-2024 ALP [Catalytic activity/Vol] 71 U/L 35-104 [facility] Serum or plasma calcium liban urement (mass/volume)Ordered By: Mika Coughlin on 08-12-2024 Calcium [Mass/Vol] 9.0 mg/dL 7.6-11.0 [facility] Serum or plasma cholesterol in HDL measurement (mass/volume)Ordered By: Mika Coughlin on 08-12-2024 Cholesterol in HDL [Mass/Vol] 47 mg/dL >40 [facility] Comment on above: National Cholesterol Education Program (NCEP) guidelines:<40 mg/dL: Low HDL-cholesterol (major risk factor for CHD)>= 60 mg/dL: High HDL-cholesterol (negative risk factor for CHD)HDL-cholesterol is affected by a number of factors, e.g. smoking, exercise, hormones, sex and age. Serum or plasma cholesterol measurement (mass/volume)Ordered By: Mika Coughlin on 08-12-2024 Cholesterol [Mass/Vol] 176 mg/dL <201 [facility] Comment on above: Cholesterol level, D esirable <200 mg/dLBorderline high cholesterol 200-239 mg/dLHigh cholesterol >=240 mg/dLRecommendations of the NCEP Adult Treatment Panel for the following risk-cutoff thresholds for the [place] population. Serum or plasma ferritin lenore surement (mass/volume)Ordered By: Mika Coughlin on 08-12-2024 Ferritin [Mass/Vol] 132 ng/mL 22-378 [facility] Serum or plasma urea nitroge n measurement (mass/volume)Ordered By: Mika Coughlin on 08-12-2024 Urea nitrogen [Mass/Vol] 13 mg/dL 4-19 [facility] Sodium levelOrdered By: Mika Coughlin on 08-12-2024 Sodium [Moles/Vol] 137 mmol/L 133-145 [facility] Total proteinOrdered By: Alexis Coughlin on 08-12-2024 Protein [Mass/Vol] 7.4 g/dL 5.9-8.4 [facility] Triglycerides measurementOrd ered By: Mika Coughlin on 08-12-2024 Triglyceride [Mass/Vol] 112 mg/dL <199 [facility] Comment on above: The drugs N-Acetylcy steine and Metamizole may falsely depress this assay. Normal range: <150 mg/dLBorderline High: 150-199 mg/dLHigh: 200-499 mg/dLVery High: >500 mg/dL Vitamin B12on 08-12-2024 Cobalamin (Vitamin B12) [Mass/Vol] 624 pg/mL Normal 180-914 [facility] Comment on above: Order Comment: Order Date: 08/12/24 Order Info: [id number] - CMP Order Info: [id number] - LIPID Order Date: 11/18/23 Order Info: [id number] - FE Order Info: [id number] - IRENE Performed By: #### L [id number] #### [facility] [address] [place] [address]. [place], [address] Vitamin B12 ser/plasOrdered By: Mika Coughlin on 08-12-2024 Cobalamin (Vitamin B12) [Mass/Vol] 624 pg/mL 180-914 [facility] White blood cell (WBC) count Ordered By: Mika Coughlin on 08-12-2024 WBC (Bld) [#/Vol] 5.8 10*3/uL 4.4-11.0 [facility] 07-22-2024 CN Office Visit ([facility] ) DANYA MARTINEZ ([id number]) 1975 F Date Time Provider Department 07/22/24 4:30 PM SYDNI GATES WSTR During your visit today, we recorded the following information about you: Temperature Pulse Respiration Blood pressure 98.1 degrees 68/minute 20/minute 119/79 Weight 135.2 kg Sydni Gates APRN.[employer] 07/22/2024 4:51 PM Signed [facility] Subjective Danya Martinez is a 49 year old female. Patient presents with: Cough: Chest congestion, wheezing x5 days Patient came in with complaints of 5 days worth of chest congestion and wheezing. Patient does have a cough. Patient says she is more short of breath when she is climbing stairs. Denies any other symptoms like sore throat or ear pain. The history is provided by the patient. No multi disciplined language analyst was used. Cough Associated symptoms include shortness of breath. Review of Systems Constitutional: Negative. HENT: Positive for congestion. Respiratory: Positive for cough and shortness of breath. Objective BP 119/79 Pulse 68 Temp 36.7 ?C (98.1 ?F) Resp 20 Wt 135.2 kg (298 lb 1 oz) SpO2 97% Physical Exam Constitutional: Appearance: Normal appearance. HENT: Right Ear: Tympanic membrane, ear canal and external ear normal. Left Ear: Tympanic membrane, ear canal and external ear normal. Nose: Nose normal. Mouth/Throat: Mouth: Mucous membranes are moist. Pharynx: Oropharynx is clear. Eyes: Pupils: Pupils are equal, round, and reactive to light. Cardiovascular: Rate and Rhythm: Normal rate and regular rhythm. Heart sounds: Normal heart sounds. Pulmonary: Effort: Pulmonary effort is normal. Breath sounds: Normal breath sounds. Neurological: Mental Status: She is alert. No past medical history on file. No past surgical history on file. ALLERGIES Penicillins MEDICATIONS montelukast (SINGULAIR) 10 mg tablet omeprazole (PRILOSEC) 20 mg capsule fluticasone (FLONASE) 50 mcg/actuation nasal spray Use 1 [place] in each nostril once daily. sertraline (ZOLOFT) 100 mg tablet Take 1 tablet by mouth once daily. fluticasone (FLONASE) 50 mcg/actuation nasal spray Use 2 Sprays in each nostril once daily. Rinse mouth after use. (Patient not taking: Reported on 01/28/2024) busPIRone (BUSPAR) 7.5 mg tablet Take 1 tablet by mouth twice daily. (Patient not taking: Reported on 05/07/2022) naproxen (NAPROSYN) 500 mg tablet Take 1 tablet by mouth twice daily as needed (pain/inflammation, take with food.). (Patient not taking: Reported on 07/09/2021) No family history on file. Social History Tobacco Use Smoking status: Never Smokeless tobacco: Never {ASSESSMENT/PLAN: 1. Acute cough - ICD9: 786.2, ICD10: R05.1 (primary diagnosis) - XR CHEST 2V FRONTAL/LAT * * * * Physician Interpretation * * * * EXAMINATION: CHEST RADIOGRAPH (2 VIEW FRONTAL AND LATERAL) CLINICAL HISTORY: Acute cough MQ: XC2_6 EXAM DATE/TIME: 07/22/2024 4:29 PM COMPARISON: No relevant prior studies available. RESULT: Lines, tubes, and devices: None. Lungs and pleura: Limited inspiratory effort. Question some patchy density in the LEFT infrahilar region. This could represent infiltrate Cardiomediastinal silhouette: Normal cardiomediastinal silhouette. Bones and soft tissues: Unremarkable. IMPRESSION IMPRESSION: Question of a small amount infiltrate in the LEFT infrahilar region Butcher'S Assistant: JORGE Transcribe Date/Time: Jul 22 2024 4:40P Dictated by : NATASHA YIN DO - PREDNISONE 10 MG TABLET 2. Bacterial pneumonia - ICD9: 482.9, ICD10: J15.9 - DOXYCYCLINE HYCLATE 100 MG TABLET Patient agreeable to care plan. Sydni Gates APRN.[employer] MDM Procedures Allergies As of Date: 07/22/2024 Noted Allergy Reaction PENICILLINS 07/09/2021 16 - Unknown Date Reviewed: 07/22/2024 Reviewed by: Henna Rowland MA - Fully Assessed Reason for Visit: Cough [28] Cmt: Chest congestion, wheezing x5 days Primary Visit Diagnosis:Acute cough [R05.1] Other Visit Diagnosis:Bacterial pneumonia [J15.9] Order(s):XR CHEST 2V FRONTAL/LAT [[id number]] Order #: [id number] FUTURE doxycycline (VIBRA-TABS) 100 mg tabletTake 1 tablet by mouth two times a day for 7 days.Disp: 14 tabletRfl: 0 predniSONE (DELTASONE) 10 mg tabletTake 4 tabs daily for 3 days, then 2 tabs daily for 3 days, then 1 tab daily for 3 days with food.Disp: 21 tabletRfl: 0 Prescriptions as of 07/22/2024 - doxycycline (VIBRA-TABS) 100 mg tablet Take 1 tablet by mouth two times a day for 7 days. - predniSONE (DELTASONE) 10 mg tablet Take 4 tabs daily for 3 days, then 2 tabs daily for 3 days, then 1 tab daily for 3 days with food. - montelukast (SINGULAIR) 10 mg tablet - omeprazole (PRILOSEC) 20 mg capsule - fluticasone (FLONASE) 50 mcg/actuation nasal spray Use 2 Sprays in each nostril once daily. Rinse mouth after use. - busPIRone (BUSPAR) (more content not included)... Normal [facility] XR CHEST 2V FRONTAL/LATon XR CHEST 2V FRONTAL/LAT * * *Final Repor t* * * DATE OF EXAM: Jul 22 2024 4:29PM WOX [id number] - XR CHEST 2V FRONTAL/LAT / PROCEDURE REASON: Acute cough * * * * Physician Interpretation * * * * EXAMINATION: CHEST RADIOGRAPH (2 VIEW FRONTAL and LATERAL) CLINICAL HISTORY: Acute cough MQ: XC2_6 EXAM DATE/TIME: 07/22/2024 4:29 PM COMPARISON: No relevant prior studies available. RESULT: Lines, tubes, and devices: None. Lungs and pleura: Limited inspiratory effort. Question some patchy density in the LEFT infrahilar region. This could represent infiltrate Cardiomediastinal silhouette: Normal cardiomediastinal silhouette. Bones and soft tissues: Unremarkable. IMPRESSION: Question of a small amount infiltrate in the LEFT infrahilar region Butcher'S Assistant: PSCB Transcribe Date/Time: Jul 22 2024 4:40P Dictated by : NATASHA YIN DO This examination was interpreted and the report reviewed and electronically signed by: NATASHA YIN DO on Jul 22 2024 4:41PM EST [id number] Normal [facility] XR Chest PA and Lateralon IMPRESSION: Question of a small amount infiltrate in the LEFT infrahilar region Butcher'S Assistant: PSCB Transcribe Date/Time: Jul 22 2024 4:40P Dictated by : NATASHA YIN DO This examination was interpreted and the report reviewed and electronically signed by: NATASHA YIN DO on Jul 22 2024 4:41PM EST DIVISION OF RADIOLOGY * * *Final Report* * * DATE OF EXAM: Jul 22 2024 4:29PM WOX [id number] - XR CHEST 2V FRONTAL/LAT / PROCEDURE REASON: Acute cough * * * * Physician Interpretation * * * * EXAMINATION: CHEST RADIOGRAPH (2 VIEW FRONTAL & LATERAL) CLINICAL HISTORY: Acute cough MQ: XC2_6 EXAM DATE/TIME: 07/22/2024 4:29 PM COMPARISON: No relevant prior studies available. RESULT: Lines, tubes, and devices: None. Lungs and pleura: Limited inspiratory effort. Question some patchy density in the LEFT infrahilar region. This could represent infiltrate Cardiomediastinal silhouette: Normal cardiomediastinal silhouette. Bones and soft tissues: Unremarkable. DIVISION OF RADIOLOGY Provider, [facility] - 07/22/2024 * * *Final Report* * * DATE OF EXAM: Jul 22 2024 4:29PM WOX [id number] - XR CHEST 2V FRONTAL/LAT / PROCEDURE REASON: Acute cough * * * * Physician Interpretation * * * * EXAMINATION: CHEST RADIOGRAPH (2 VIEW FRONTAL & LATERAL) CLINICAL HISTORY: Acute cough MQ: XC2_6 EXAM DATE/TIME: 07/22/2024 4:29 PM COMPARISON: No relevant prior studies available. RESULT: Lines, tubes, and devices: None. Lungs and pleura: Limited inspiratory effort. Question some patchy density in the LEFT infrahilar region. This could represent infiltrate Cardiomediastinal silhouette: Normal cardiomediastinal silhouette. Bones and soft tissues: Unremarkable. IMPRESSION IMPRESSION: Question of a small amount infiltrate in the LEFT infrahilar region Butcher'S Assistant: JORGE Transcribe Date/Time: Jul 22 2024 4:40P Dictated by : NATASHA YIN DO This examination was interpreted and the report reviewed and electronically signed by: NATASHA YIN DO on Jul 22 2024 4:41PM [facility] Radiology Study observation (narrative) Jose C christy [facility] XR Chest PA and LateralOrder ed By: [facility] Provider on 07-22-2024 [facility] CNOVon 01-28-2024 CNOV Office Visit ([facility]WSTR ) DANYA MARTINEZ ([id number]) 1975 F Date Time Provider Department 01/28/24 9:30 AM MARLENI IRIZARRY [facility] During your visit today, we recorded the following information about you: Temperature Pulse Respiration Blood pressure 98.3 degrees 86/minute 18/minute 126/91 Weight 136.6 kg Marleni Irizarry APRN.CNP 01/28/2024 10:08 AM Signed This note was created using [email or web address]. Subjective Danya Martinez is a 48 year old female. 48 year old female with no PMH presents for knee laceration. 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 +laceration left knee Denies head injury Denies LOC Denies neck or back pain Denies abdominal pain Denies N/V/D Denies blood thinners The history is provided by the patient. No multi disciplined language analyst was used. Laceration The incident occurred less than 1 hour ago. Pain location: left knee. The laceration is 3 cm in size. The laceration mechanism was a blunt object. The pain is at a severity of 3/10. The pain is mild. The pain has been Constant since onset. She reports no foreign bodies present. Her tetanus status is UTD (2017). No past medical history on file. No past surgical history on file. ALLERGIES Penicillins MEDICATIONS montelukast (SINGULAIR) 10 mg tablet omeprazole (PRILOSEC) 20 mg capsule fluticasone (FLONASE) 50 mcg/actuation nasal spray Use 1 [place] in each nostril once daily. sertraline (ZOLOFT) 100 mg tablet Take 1 tablet by mouth once daily. doxycycline monohydrate 100 mg tablet Take 1 tablet by mouth two times a day for 7 days. fluticasone (FLONASE) 50 mcg/actuation nasal spray Use 2 Sprays in each nostril once daily. Rinse mouth after use. (Patient not taking: Reported on 01/28/2024) busPIRone (BUSPAR) 7.5 mg tablet Take 1 tablet by mouth twice daily. (Patient not taking: Reported on 05/07/2022) naproxen (NAPROSYN) 500 mg tablet Take 1 tablet by mouth twice daily as needed (pain/inflammation, take with food.). (Patient not taking: Reported on 07/09/2021) No family history on file. Social History Tobacco Use Smoking status: Never Smokeless tobacco: Never Review of Systems Constitutional: Negative for chills, diaphoresis, fatigue and fever. Eyes: Negative for photophobia, pain, discharge, redness, itching and visual disturbance. Respiratory: Negative for apnea and cough. Cardiovascular: Negative for chest pain, palpitations and leg swelling. Gastrointestinal: Negative for abdominal pain. Skin: Positive for wound. Allergic/Immunologic: Negative for environmental allergies, food allergies and immunocompromised state. Neurological: Negative for dizziness, seizures, facial asymmetry, light-headedness, numbness and headaches. Hematological: Does not bruise/bleed easily. Psychiatric/Behaviora l: Negative for agitation and confusion. Objective BP 126/91 Pulse 86 Temp 36.8 ?C (98.3 ?F) Resp 18 Wt (!) 136.6 kg (301 lb 2.4 oz) SpO2 97% Physical Exam Vitals and nursing note reviewed. Constitutional: General: She is not in acute distress. Appearance: Normal appearance. She is normal weight. She is not ill-appearing, toxic-appearing or diaphoretic. HENT: Head: Normocephalic and atraumatic. Right Ear: Ear canal and external ear normal. Left Ear: Ear canal and external ear normal. Nose: Nose normal. No congestion or rhinorrhea. Mouth/Throat: Mouth: Mucous membranes are moist. Pharynx: No oropharyngeal exudate or posterior oropharyngeal erythema. Eyes: General: Right eye: No discharge. Left eye: No discharge. Extraocular Movements: Extraocular movements intact. Conjunctiva/sclera: Conjunctivae normal. Pupils: Pupils are equal, round, and reactive to light. Cardiovascular: Rate and Rhythm: Normal rate and regular rhythm. Pulses: Normal pulses. Heart sounds: Normal heart sounds. No murmur heard. No friction rub. Pulmonary: Effort: Pulmonary effort is normal. No respiratory distress. Breath sounds: Normal breath sounds. No stridor. No wheezing, rhonchi or rales. Chest: Chest wall: No tenderness. Abdominal: General: Abdomen is flat. There is no distension. Palpations: Abdomen is soft. There is no mass. Tenderness: There is no abdominal tenderness. There is no right CVA tenderness, left CVA tenderness, guarding or rebound. Hernia: No hernia is present. Musculoskeletal: General: Tenderness present. No swelling, deformity or signs of injury. Normal range of motion. Cervical back: Normal range of motion and neck supple. No rigidity. Right lower leg: No edema. Left lower leg: No edema. Lymphadenopathy: Cervical: No cervical adenopathy. Skin: Capillary Refill: Capillary refill takes less than 2 seconds. Coloration: Skin is not jaundiced or pale. Findings: No bruising, erythema, lesion or rash. Comments: Just below left knee is irregular woun (more content not included)... Normal [facility] XR FOOT 3V AP/LAT/OBL RTon 1 03-29-2023 XR FOOT 3V AP/LAT/OBL RT * * *Final Repo rt* * * DATE OF EXAM: Jan 28 2024 3:26PM WOX [id number] - XR FOOT 3V AP/LAT/OBL RT / PROCEDURE REASON: multiple diagnoses * * * * Physician Interpretation * * * * EXAMINATION: RIGHT FOOT X-RAY SERIES HISTORY: Fall down stairs, initial encounter Foot pain, right COMPARISON: None available. TECHNIQUE: AP, lateral and oblique views. RESULT: No fracture, dislocation or destructive changes. Joint spaces and articular surfaces are preserved. Tiny plantar calcaneal heel spur. Minimal soft tissue swelling over the dorsum of the forefoot. IMPRESSION: Minimal soft tissue swelling over the dorsum of the forefoot. Butcher'S Assistant: [facility] Transcribe Date/Time: Jan 28 2024 3:41P Dictated by : PAUL CORTEZ MD This examination was interpreted and the report reviewed and electronically signed by: PAUL CORTEZ MD on Jan 28 2024 3:42PM EST [id number] Normal [facility] XR Foot - right AP and Later al and obliqueon 01-28-2024 IMPRESSION: Minimal soft tissue swelling over the dorsum of the forefoot. Butcher'S Assistant: [facility] Transcribe Date/Time: Jan 28 2024 3:41P Dictated by : PAUL CORTEZ MD This examination was interpreted and the report reviewed and electronically signed by: PAUL CORTEZ MD on Jan 28 2024 3:42PM EST DIVISION OF RADIOLOGY * * *Final Report* * * DATE OF EXAM: Jan 28 2024 3:26PM WOX [id number] - XR FOOT 3V AP/LAT/OBL RT / PROCEDURE REASON: multiple diagnoses * * * * Physician Interpretation * * * * EXAMINATION: RIGHT FOOT X-RAY SERIES HISTORY: Fall down stairs, initial encounter Foot pain, right COMPARISON: None available. TECHNIQUE: AP, lateral and oblique views. RESULT: No fracture, dislocation or destructive changes. Joint spaces and articular surfaces are preserved. Tiny plantar calcaneal heel spur. Minimal soft tissue swelling over the dorsum of the forefoot. DIVISION OF RADIOLOGY [facility]/28/[facility]24 * * *Final Report* * * DATE OF EXAM: Jan 28 2024 3:26PM WOX [id number] - XR FOOT 3V AP/LAT/OBL RT / PROCEDURE REASON: multiple diagnoses * * * * Physician Interpretation * * * * EXAMINATION: RIGHT FOOT X-RAY SERIES HISTORY: Fall down stairs, initial encounter Foot pain, right COMPARISON: None available. TECHNIQUE: AP, lateral and oblique views. RESULT: No fracture, dislocation or destructive changes. Joint spaces and articular surfaces are preserved. Tiny plantar calcaneal heel spur. Minimal soft tissue swelling over the dorsum of the forefoot. IMPRESSION IMPRESSION: Minimal soft tissue swelling over the dorsum of the forefoot. Butcher'S Assistant: [facility] Transcribe Date/Time: Jan 28 2024 3:41P Dictated by : PAUL CORTEZ MD This examination was interpreted and the report reviewed and electronically signed by: PAUL CORTEZ MD on Jan 28 2024 3:42PM EST [facility] Radiology Study observation (narrative) [facility] XR Foot - right AP and Later al and obliqueOrdered By: Ccf Provider on 01-28-2024 [facility] Whole blood hemoglobin A1c/t otal hemoglobin ratio (mass fraction)Ordered By: Mika Coughlin on 01-22-2023 HbA1c (Bld) [Mass fraction] 5.3 % 3.8-5.6 [facility] Comment on above: Normal < 5.7 % Predi abetic 5.7 - 6.4 % Diabetic >or= 6.5 % Please note range changes. Absolute lymphocyte countOrd ered By: Mika Coughlin on 01-21-2023 Lymphocytes Auto (Unsp spec) [#/Vol] 2.02 10*3/uL 0.83-4.51 [facility] Basophil percentageOrdered B y: Mika Coughlin on 01-21-2023 Basophils/100 WBC (Bld) 1.0 % 0-1 [facility] Bilirubin [Mass/Vol] 0.30 mg/dL 0.20-1.00 [facility] Comment on above: For patients on eltr ombopag therapy, use of Dimension [place] TBIL is not recommended. Chloride [Moles/Vol] 106 mmol/L 98-107 [facility] Cholesterol [Mass/Vol] 175 mg/dL <200 [facility] Comment on above: <200 mg/dL Desirable 200-240 mg/dL Borderline >240 mg/dL High Risk Eosinophils/100 WBC (Bld) 1.3 % 0-5 [facility] Glucose [Mass/Vol] 101 mg/dL 74-106 [facility] Comment on above: Fasting Glucose resu lt from 100 to 125 mg/dL suggests IMPAIRED HOMEOSTASIS per A.D.A. criteria. Neutrophils (Bld) [#/Vol] 3.7 10*3/uL 2.0-7.7 [facility] Neutrophils/100 WBC (Bld) 59.9 % 47-70 [facility] Potassium [Moles/Vol] 3.6 mmol/L 3.5-5.1 [facility] Protein [Mass/Vol] 8.2 g/dL 6.4-8.2 [facility] Sodium [Moles/Vol] 139 mmol/L 136-145 [facility] Triglyceride [Mass/Vol] 93 mg/dL <199 [facility] Comment on above: The drugs N-Acetylcy steine and Metamizole may falsely depress this assay.Serum Triglycerides Reference Interval Normal <150 mg/dL Borderline high 150 - 199 mg/dL High 200 - 499 mg/dL Very High > or = 500 mg/dL WBC (Bld) [#/Vol] 6.2 10*3/uL 4.4-11.0 [facility] Blood erythrocytes count (nu mber/volume)Ordered By: Mika Coughlin on 01-21-2023 RBC (Bld) [#/Vol] 4.70 10*6/uL 4.2-5.4 [facility] Blood hemoglobin measurement (mass/volume)Ordered By: Mika Coughlin on 01-21-2023 Hemoglobin (Bld) [Mass/Vol] 12.6 g/dL 12.0-15.0 [facility] Blood lymphocytes/100 leukoc ytesOrdered By: Mika Coughlin on 01-21-2023 Lymphocytes/100 WBC (Bld) 32.4 % 19-41 [facility] Blood monocytes/100 leukocyt esOrdered By: Mika Coughlin on 01-21-2023 Monocytes/100 WBC (Bld) 5.1 % 0-10 [facility] Blood platelet mean volumeOr dered By: Mika Coughlin on 01-21-2023 Platelet mean volume (Bld) [Entitic vol] 10.7 fL 6.2-12.0 [facility] Determination of erythrocyte mean corpuscular volume (MCV)Ordered By: Mika Coughlin on 01-21-2023 MCV (RBC) [Entitic vol] 86.6 fL 81-99 [facility] Hematocrit Auto (Bld) [Volum e fraction]Ordered By: Mika Coughlin on 01-21-2023 Hematocrit (Bld) [Volume fraction] 40.7 % 37-47 [facility] Laboratory - Chemistry and C hemistry - challengeOrdered By: Mika Coughlin on 01-21-2023 ALP [Catalytic activity/Vol] 85 U/L 45-117 [facility] ALT [Catalytic activity/Vol] 23 U/L 13-56 [facility] CO2 [Moles/Vol] 24.0 mmol/L 21.0-32.0 [facility] Globulin (S) [Mass/Vol] 4.6 g/dL 2.2-4.2 [facility] Urea nitrogen/Creatinine [Mass ratio] 27.4 mg/mg 10-20 [facility] Laboratory - Hematology and Cell countsOrdered By: Mika Coughlin on 01-21-2023 Erythrocyte distribution width (RBC) [Entitic vol] 46.8 fL 35.1-43.9 [facility] Erythrocyte distribution width (RBC) [Ratio] 14.7 % 11.6-14.6 [facility] Immature granulocytes/100 WBC (Bld) 0.300 % 0.0-0.9 [facility] Comment on above: IG% - Immature Granu locytes (promyelocytes, myelocytes and metamyelocytes) > 1% indicates that a LEFT SHIFT is Present. MCH (RBC) [Entitic mass] 26.8 pg 27.0-32.0 [facility] Nucleated RBC/100 WBC (Bld) [Ratio] 0 % 0-5 [facility] MCHC Auto (RBC) [Mass/Vol]Or dered By: Mika Coughlin on 01-21-2023 MCHC (RBC) [Mass/Vol] 31.0 g/dL 32-36 [facility] No Panel InformationOrdered By: Mika Coughlin on 01-21-2023 Estimated GFR (MDRD) Amer 133 mL/min >60 [facility] Comment on above: GFR Calc Estimated GFR (MDRD) Non-Af Amer 110 mL/min >60 [facility] Comment on above: Non- GFR Calc Platelets bldOrdered By: Alexis Coughlin on 01-21-2023 Platelets (Bld) [#/Vol] 296 10*3/uL 150-450 [facility] Serum or plasma albumin liban urement (mass/volume)Ordered By: Mika Coughlin on 01-21-2023 Albumin [Mass/Vol] 3.6 g/dL 3.2-5.0 [facility] Serum or plasma albumin/glob ulin mass ratioOrdered By: iMka Coughlin on 01-21-2023 Albumin/Globulin [Mass ratio] 0.8 {ratio} 0.9-2.4 [facility] Serum or plasma calcium liban urement (mass/volume)Ordered By: Mika Coughlin on 01-21-2023 Calcium [Mass/Vol] 9.2 mg/dL 8.5-10.1 [facility] Serum or plasma cholesterol in HDL measurement (mass/volume)Ordered By: Mika Coughlin on 01-21-2023 Cholesterol in HDL [Mass/Vol] 54 mg/dL >40 [facility] Comment on above: The drugs N-Acetylcy steine and Metamizole may falsely depress this assay. Reference Range HDL <40 mg/dL Low HDL Cholesterol HDL >or= 60 mg/dL High HDL Cholesterol Serum or plasma cholesterol in VLDL measurement (mass/volume)Ordered By: Mika Coughlin on 01-21-2023 Cholesterol in VLDL [Mass/Vol] 19 mg/dL 5-40 [facility] Serum or plasma creatinine m easurement (mass/volume)Ordered By: Mika Coughlin on 01-21-2023 Creatinine [Mass/Vol] 0.62 mg/dL 0.55-1.02 [facility] Comment on above: The validity of the calculated GFR & GFRAA in patients over 70 years has not been determined. Clinical correlation is essential. Serum or plasma low density lipoprotein (LDL) cholesterol measurement (mass/volume)Ordered By: Mika Coughlin on 01-21-2023 Cholesterol in LDL [Mass/Vol] 102 mg/dL 0-130 [facility] Serum or plasma urea nitroge n measurement (mass/volume)Ordered By: Mika Coughlin on 01-21-2023 Urea nitrogen [Mass/Vol] 17 mg/dL 7-18 [facility] Thin prep Papanicolaou smear with manual screeningOrdered By: Mika Coughlin on 01-21-2023 Thin prep Papanicolaou smear with manual screening 18 U/L 15-37 [facility] Thin prep Papanicolaou smear with manual screening 9 5-15 [facility] Basophil percentageon 2021 Chloride [Moles/Vol] 108 mmol/L 98-[address] [facility] Work Phone: Cholesterol [Mass/Vol] 160 mg/dL <200 [facility] Work Phone: Comment on above: <200 mg/dL Desirable 200-240 mg/dL Borderline >240 mg/dL High Risk Glucose [Mass/Vol] 106 mg/dL 74-106 [facility] Work Phone: Comment on above: Fasting Glucose resu lt from 100 to 125 mg/dL suggests IMPAIRED HOMEOSTASIS per A.D.A. criteria. Potassium [Moles/Vol] 3.7 mmol/L 3.5-5.1 [facility] Work Phone: Sodium [Moles/Vol] 140 mmol/L 136-145 [facility] Work Phone: Triglyceride [Mass/Vol] 137 mg/dL <199 [facility] Work Phone: Comment on above: The drugs N-Acetylcy steine and Metamizole may falsely depress this assay.Serum Triglycerides Reference Interval Normal <150 mg/dL Borderline high 150 - 199 mg/dL High 200 - 499 mg/dL Very High > or = 500 mg/dL Laboratory - Chemistry and C hemistry - challengeon 10-10-2021 CO2 [Moles/Vol] 26.0 mmol/L 21.0-32.0 [facility] Work Phone: Urea nitrogen/Creatinine [Mass ratio] 22.1 mg/mg 10-20 [facility] Work Phone: No Panel Informationon 10-10 Estimated GFR (MDRD) Amer 120 mL/min >60 [facility] Work Phone: Comment on above: GFR Calc Estimated GFR (MDRD) Non-Af Amer 99 mL/min >60 [facility] Work Phone: Comment on above: Non- GFR Calc Serum or plasma calcium liban urement (mass/volume)on 10-10-2021 Calcium [Mass/Vol] 9.0 mg/dL 8.5-10.1 [facility] Work Phone: Serum or plasma cholesterol in HDL measurement (mass/volume)on 10-10-2021 Cholesterol in HDL [Mass/Vol] 46 mg/dL >40 [facility] Work Phone: Comment on above: The drugs N-Acetylcy steine and Metamizole may falsely depress this assay. Reference Range HDL <40 mg/dL Low HDL Cholesterol HDL >or= 60 mg/dL High HDL Cholesterol Serum or plasma cholesterol in VLDL measurement (mass/volume)on 10-10-2021 Cholesterol in VLDL [Mass/Vol] 27 mg/dL 5-40 [facility] Work Phone: Serum or plasma creatinine m easurement (mass/volume)on 10-10-2021 Creatinine [Mass/Vol] 0.68 mg/dL 0.55-1.02 [facility] Work Phone: Comment on above: The validity of the calculated GFR & GFRAA in patients over 70 years has not been determined. Clinical correlation is essential. Serum or plasma low density lipoprotein (LDL) cholesterol measurement (mass/volume)on 10-10-2021 Cholesterol in LDL [Mass/Vol] 87 mg/dL 0-130 [facility] Work Phone: Serum or plasma urea nitroge n measurement (mass/volume)on 10-10-2021 Urea nitrogen [Mass/Vol] 15 mg/dL 7-18 [facility] Work Phone: Thin prep Papanicolaou smear with manual screeningon 10-10-2021 Thin prep Papanicolaou smear with manual screening 6 5-15 [facility] Work Phone: Vital Signs Date Time Vital Sign Value Performing Clinician Facility 12-05-2024 15:26-0400 Body height 172.[address] Mika Coughlin MD Work Phone: [facility] 12-05-2024 15:26-0400 Body mass index (BMI) [Ratio] 45.6 kg/m2 Dr. Mika Coughlin MD Work Phone: 4(328)988-017345 [place] [address] 12-05-2024 15:26-0400 Body weight 136.[address] Mika Coughlin MD Work Phone: 5(373)225-275045 [place] [address] 12-05-2024 15:26-0400 Diastolic blood pressure 78 mm[Hg] Dr. Mika Coughlin MD Work Phone: 5(424)251-487672 [place] [address] 12-05-2024 15:26-0400 Systolic blood pressure 111 mm[Hg] Dr. Mika Coughlin MD Work Phone: 0(042)119-555972 [place] [address] 11-23-2024 08:26-0400 Body height 172.[address] Mika Coughlin MD Work Phone: 7(690)490-136672 [place] [address] 11-23-2024 08:26-0400 Body mass index (BMI) [Ratio] 45.5 kg/m2 Dr. Mika Coughlin MD Work Phone: 2(377)449-303672 [place] [address] 11-23-2024 08:26-0400 Body weight 135.[address] Mika Coughlin MD Work Phone: 5(051)012-693472 [place] [address] 11-23-2024 08:26-0400 Diastolic blood pressure 82 mm[Hg] Dr. Mika Coughlin MD Work Phone: 5(001)415-047372 [place] [address] 11-23-2024 08:26-0400 Systolic blood pressure 136 mm[Hg] Dr. Mika Coughlin MD Work Phone: 8(396)411-554772 [place] [address] 10-20-2024 09:12-0400 Body height 172.[address] Mika Coughlin MD Work Phone: 6([phone])409-865689 [address] 10-20-2024 09:12-0400 Body mass index (BMI) [Ratio] 45.4 kg/m2 Dr. Mika Coughlin MD Work Phone: 3(286)079-900872 [place] [address] 10-20-2024 09:12-0400 Body weight 135.[address] Mika Coughlin MD Work Phone: 1(988)328-833572 [place] [address] 10-20-2024 09:12-0400 Diastolic blood pressure 85 mm[Hg] Dr. Mika Coughlin MD Work Phone: [facility] 10-20-2024 09:12-0400 Systolic blood pressure 130 mm[Hg] Dr. Mika Coughlin MD Work Phone: [facility] 09-19-2024 11:00-0400 Body temperature 97 [degF] Dr. Mika Coughlin MD Work Phone: [facility] 09-19-2024 11:00-0400 Diastolic blood pressure 74 mm[Hg] Dr. Mika Coughlin MD Work Phone: [facility] 09-19-2024 11:00-0400 Heart rate 50 /min Dr. Mika Coughlin MD Work Phone: [facility] 09-19-2024 11:00-0400 Respiratory rate 16 /min Dr. Mika Coughlin MD Work Phone: [phone] [place] [address] 09-19-2024 11:00-0400 SaO2% (BldA) [Mass fraction] 99 % Dr. Mika Coughlin MD Work Phone: [facility] 09-19-2024 11:00-0400 Systolic blood pressure 106 mm[Hg] Dr. Mika Coughlin MD Work Phone: [facility] 09-19-2024 08:53-0400 Body height 172.[address] Mika Coughlin MD Work Phone: [facility] 09-19-2024 08:53-0400 Body mass index (BMI) [Ratio] 44.9 kg/m2 Dr. Mika Coughlin MD Work Phone: [facility] 09-19-2024 08:53-0400 Body weight 134.[address] Mika Coughlin MD Work Phone: [facility] 08-15-2024 10:10-0400 Body height 172.[address] Mika Coughlin MD Work Phone: [facility] 08-15-2024 10:10-0400 Body mass index (BMI) [Ratio] 45.4 kg/m2 Dr. Mika Coughlin MD Work Phone: [facility] 08-15-2024 10:10-0400 Body temperature 97.2 [degF] Dr. Mika Coughlin MD Work Phone: [facility] 08-15-2024 10:10-0400 Body weight 135.[address] Mika Coughlin MD Work Phone: [facility] 08-15-2024 10:10-0400 Diastolic blood pressure 74 mm[Hg] Dr. Mika Coughlin MD Work Phone: [facility] 08-15-2024 10:10-0400 Heart rate 71 /min Dr. Mika Coughlin MD Work Phone: [facility] 08-15-2024 10:10-0400 Respiratory rate 18 /min Dr. Mika Coughlin MD Work Phone: [facility] 08-15-2024 10:10-0400 SaO2% (BldA) [Mass fraction] 99 % Dr. Mika Coughlin MD Work Phone: [facility] 08-15-2024 10:10-0400 Systolic blood pressure 106 mm[Hg] Dr. Mika Coughlin MD Work Phone: [facility] 07-22-2024 16:10-0400 Body temperature 98.1 [degF] Sydni Gates APRN.[employer] Work Phone: [facility] 07-22-2024 16:10-0400 Body weight 135.2 kg Sydni Gates APRN.[employer] Work Phone: [facility] 07-22-2024 16:10-0400 Diastolic blood pressure 79 mm[Hg] Sydni Gates APRN.[employer] Work Phone: [facility] 07-22-2024 16:10-0400 Heart rate 68 /min Sydni Gates APRN.[employer] Work Phone: [facility] 07-22-2024 16:10-0400 Respiratory rate 20 /min Sydni Eleazar VEHICLE MONITOR TECHNICIAN.[employer] Work Phone: [facility] 07-22-2024 16:10-0400 SaO2% (BldA) [Mass fraction] 97 % Sydni Gates VEHICLE MONITOR TECHNICIAN.[employer] Work Phone: [facility] 07-22-2024 16:10-0400 Systolic blood pressure 119 mm[Hg] Sydni Gates VEHICLE MONITOR TECHNICIAN.[employer] Work Phone: [facility] 01-28-2024 09:27-0500 Body temperature 98.29 [degF] Marleni Irizarry VEHICLE MONITOR TECHNICIAN.[employer] Work Phone: [facility] 01-28-2024 09:27-0500 Body weight 136.6 kg Marleni Irizarry VEHICLE MONITOR TECHNICIAN.[employer] Work Phone: [facility] 01-28-2024 09:27-0500 Diastolic blood pressure 91 mm[Hg] Marleni Irizarry VEHICLE MONITOR TECHNICIAN.[employer] Work Phone: [facility] 01-28-2024 09:27-0500 Heart rate 86 /min Marleni Irizarry VEHICLE MONITOR TECHNICIAN.[employer] Work Phone: [facility] 01-28-2024 09:27-0500 Respiratory rate 18 /min Marleni Irizarry VEHICLE MONITOR TECHNICIAN.[employer] Work Phone: [facility] 01-28-2024 09:27-0500 SaO2% (BldA) [Mass fraction] 97 % Marleni Irizarry VEHICLE MONITOR TECHNICIAN.[employer] Work Phone: [facility] 01-28-2024 09:27-0500 Systolic blood pressure 126 mm[Hg] Marleni Irizarry VEHICLE MONITOR TECHNICIAN.[employer] Work Phone: [facility] 02-21-2023 09:06-0500 Body temperature 97.7 [degF] Maximino Ulrich VEHICLE MONITOR TECHNICIAN.[employer] Work Phone: [facility] 02-21-2023 09:06-0500 Body weight 132 kg Maximino Ulrich VEHICLE MONITOR TECHNICIAN.[employer] Work Phone: [facility] 02-21-2023 09:06-0500 Diastolic blood pressure 90 mm[Hg] Maximino Pendlebury VEHICLE MONITOR TECHNICIAN.[employer] Work Phone: [facility] 02-21-2023 09:06-0500 Heart rate 78 /min Maximino Pendlebury VEHICLE MONITOR TECHNICIAN.[employer] Work Phone: [facility] 02-21-2023 09:06-0500 Respiratory rate 16 /min Maximino Pendlebury VEHICLE MONITOR TECHNICIAN.[employer] Work Phone: [facility] 02-21-2023 09:06-0500 SaO2% (BldA) [Mass fraction] 97 % Maximino Pendlebury VEHICLE MONITOR TECHNICIAN.[employer] Work Phone: [facility] 02-21-2023 09:06-0500 Systolic blood pressure 118 mm[Hg] Maximino Pendlebury VEHICLE MONITOR TECHNICIAN.[employer] Work Phone: [facility] 05-07-2022 16:37-0500 Body temperature 98.2 [degF] Maximino Pendlebury VEHICLE MONITOR TECHNICIAN.[employer] Work Phone: [facility] 05-07-2022 16:37-0500 Body weight 130.54 kg Maximino Pendlebury VEHICLE MONITOR TECHNICIAN.[employer] Work Phone: [facility] 05-07-2022 16:37-0500 Diastolic blood pressure 80 mm[Hg] Maximino Pendlebury VEHICLE MONITOR TECHNICIAN.[employer] Work Phone: [facility] 05-07-2022 16:37-0500 Heart rate 61 /min Maximino Pendlebury VEHICLE MONITOR TECHNICIAN.[employer] Work Phone: [facility] 05-07-2022 16:37-0500 Respiratory rate 16 /min Maximino Pendlebury VEHICLE MONITOR TECHNICIAN.[employer] Work Phone: [facility] 05-07-2022 16:37-0500 SaO2% (BldA) [Mass fraction] 99 % Maximino Pendlebury VEHICLE MONITOR TECHNICIAN.[employer] Work Phone: [facility] 05-07-2022 16:37-0500 Systolic blood pressure 122 mm[Hg] Maximino Pendlebury VEHICLE MONITOR TECHNICIAN.[employer] Work Phone: [facility] 07-09-2021 18:06-0400 Body temperature 97.59 [degF] Harjeet Samuels VEHICLE MONITOR TECHNICIAN.[employer] Work Phone: [facility] 07-09-2021 18:06-0400 Body weight 134.63 kg Harjeet Samuels VEHICLE MONITOR TECHNICIAN.[employer] Work Phone: [facility] 07-09-2021 18:06-0400 Diastolic blood pressure 70 mm[Hg] Harjeet Samuels VEHICLE MONITOR TECHNICIAN.[employer] Work Phone: [facility] 07-09-2021 18:06-0400 Heart rate 68 /min Harjeet Samuels VEHICLE MONITOR TECHNICIAN.[employer] Work Phone: [facility] 07-09-2021 18:06-0400 Respiratory rate 16 /min Harjeet Samuels VEHICLE MONITOR TECHNICIAN.[employer] Work Phone: [facility] 07-09-2021 18:06-0400 SaO2% (BldA) [Mass fraction] 99 % Harjeet Samuels VEHICLE MONITOR TECHNICIAN.[employer] Work Phone: [facility] 07-09-2021 18:06-0400 Systolic blood pressure 108 mm[Hg] Harjeet Samuels VEHICLE MONITOR TECHNICIAN.[employer] Work Phone: [facility] Encounters Encounter Date Encounter Type Care Provider Facility Start: 01-23-2025 End: 01-23-2025 ambulatory MIKA COUGHLIN Facility:[facility] Start: 12-11-2024 End: 12-11-2024 ambulatory MIKA COUGHLIN Facility:[facility] Start: 12-05-2024 End: 12-05-[address] Mika Coughlin MD Work Phone: -Laboratory Specimen Start: 12-05-2024 End: 12-05-[address] iMka Coughlin MD -Laboratory Specimen Work Phone: Start: 12-05-2024 End: 12-05-[address] Shilpa Martinez MD -[facility] Work Phone: Start: 12-05-2024 End: 12-05-[address] Mika Coughlin MD Work Phone: -[facility] Start: 12-05-2024 End: 12-05-2024 ambulatory Mika Coughlin Facility:[facility] Start: 11-23-2024 End: 11-23-2024 Patient encounter procedure Peace CABRAL -[facility] Work Phone: Start: 11-23-2024 End: 11-23-[address] Mika Coughlin MD Work Phone: [facility] Start: 11-23-2024 End: 11-23-2024 ambulatory Mika Coughlin Facility:[facility] Start: 11-09-2024 ambulatory Nguyen Miguel ity:[facility] Start: 10-20-2024 End: 10-20-[address] Mika Coughlin MD Work Phone: -Laboratory Specimen Start: 10-20-2024 End: 10-20-2024 Patient encounter procedure Peace CABRAL -Laboratory Specimen Work Phone: Start: 10-20-2024 End: 10-20-2024 Patient encounter procedure Peace CABRAL -[facility] Work Phone: Start: 10-20-2024 End: 10-20-2024 Patient encounter status Peace CABRAL [facility] Start: 10-20-2024 End: 10-20-[address] Mika Coughlin MD Work Phone: -[facility] Start: 10-20-2024 End: 10-20-2024 ambulatory Mika Coughlin Facility:[facility] Start: 10-13-2024 Encounter for other preprocedural examination Vinh Man [facility] Start: 09-19-2024 ambulatory Mika Coughlin Facilit y:[facility] Start: 09-19-2024 Non-patient / Non-visit Dr. Vinh Man MD -[facility] Start: 09-19-2024 End: 09-19-2024 Admission to same day surgery center Dr. Vinh Man MD -Endoscopy Work Phone: Start: 09-19-2024 End: 09-19-[address] Mika Coughlin MD Work Phone: -Endoscopy Start: 08-23-2024 End: 08-23-[address] Mika Coughlin MD Work Phone: [facility] Work Phone: Start: 08-23-2024 End: 08-23-[address] Mika Coughlin MD -[facility] Work Phone: Start: 08-23-2024 End: 08-23-2024 ambulatory Mika Coughlin Facility:[facility] Start: 08-15-2024 End: 08-15-[address] Vinh Man MD -[facility] Work Phone: Start: 08-15-2024 End: 08-15-[address] Mika Coughlin MD Work Phone: [facility] Work Phone: Start: 08-12-2024 End: 08-12-[address] Mika Coughlin MD Work Phone: [facility] Work Phone: Start: 08-12-2024 End: 08-12-[address] Mika Coughlin MD -[facility] Start: 08-12-2024 End: 08-12-2024 ambulatory Mika Coughlin Facility:[facility] Start: 07-22-2024 End: 07-22-2024 Patient encounter procedure Sydni Gates APRN.[facility] Work Phone: [facility] Comment on above: Acute cough (Primary Dx); Bacterial pneumonia Start: 07-22-2024 End: 07-22-2024 Subsequent hospital visit by physician [facility] Work Phone: Radiology Comment on above: Acute cough [R05.1] Start: 07-22-2024 End: 07-22-2024 ambulatory [facility] Facility:[facility] Start: 01-28-2024 End: 01-28-2024 Subsequent hospital visit by physician Xr [facility] Erik Work Phone: Radiology Comment on above: Fall down stairs, in itial encounter [W10.8XXA] Start: 01-28-2024 End: 01-28-2024 ambulatory MARLENI IRIZARRY Facility:[facility] Start: 01-28-2024 End: 01-28-2024 ambulatory MIKA COUGHLIN Facility:[facility] Start: 01-28-2024 End: 01-28-2024 Patient encounter procedure Marlenirichie Irizarry VEHICLE MONITOR TECHNICIAN.[employer] Work Phone: [facility] Comment on above: Open wound of left l ower leg, initial encounter (Primary Dx); Fall down stairs, initial encounter Start: 02-22-2023 Telephone encounter Ofelia Givens VEHICLE MONITOR TECHNICIAN.[employer] Work Phone: [facility] Comment on above: Results Start: 02-21-2023 End: 02-21-2023 Office outpatient visit 15 minutes Maximino Ulrich APRN.[employer] Work Phone: [facility] Comment on above: Viral illness (Prima ry Dx) Start: 01-21-2023 End: 01-21-2023 ambulatory [facility] Work Phone: Start: 01-21-2023 End: 01-21-2023 Patient encounter procedure [facility] Start: 05-07-2022 End: 05-07-2022 Office outpatient visit 15 minutes Maximino Ulrich VEHICLE MONITOR TECHNICIAN.[employer] Work Phone: [facility] Comment on above: Insect bite, unspeci fied site, initial encounter (Primary Dx) Start: 10-11-2021 End: 10-11-2021 Patient encounter procedure [facility]-Outpatient Breast Imaging Start: 10-10-2021 End: 10-10-2021 Patient encounter procedure [facility] Start: 07-10-2021 Telephone encounter Harjeet fatima VEHICLE MONITOR TECHNICIAN.[employer] Work Phone: [facility] Comment on above: Results Start: 07-09-2021 End: 07-09-2021 Patient encounter procedure Harjeet Samuels APRN.[employer] Work Phone: [facility] Comment on above: URI, acute (Primary Dx) Start: 07-03-2021 End: 07-03-2021 Patient encounter procedure [facility]-Ultrasound, [facility] Procedures Date Procedure Procedure Detail Performing Clinician Start: 11-23-2024 Gram stain microscopy Angelina Coughlin MD Work Phone: Start: 11-23-[address] Mika Coughlin MD Work Phone: Start: 11-23-2024 Hepatitis C antibody measurement Dr. Mika Coughlin MD Work Phone: Comment on above: Reactive: Presumptiv e evidence of antibodies to HCV. Follow CDC recommendations for supplemental testing.Non-Reactive: Antibodies to HCV were not detected; does not exclude the possibility of exposure to HCVReactive Results are presumptive evidence of antibodies to HCV. Follow CDC recommendations for supplemental testing.Order confirmation testing: HCV Quant by PCR testing - HCVPCR #[id number] Non Reactive: < 0.8 Equivocal: >/= 0.8 to < 1.0 Reactive: >/= 1.0The CDC requires that a reactive/equivocal HCV antibody result be sent out for confirmation. HCV Quant by PCR testing. Start: 11-23-2024 Serologic test for syphilis Dr. Mika Coughlin MD Work Phone: Start: 10-20-2024 Liquid based cervica l cytology screening Dr. Mika Coughlin MD Work Phone: Comment on above: EPITHELIAL CELL ABNO RMALITY.ATYPICAL SQUAMOUS CELLS OF UNDETERMINED SIGNIFICANCE (ASC-US).TRICHOMONAS VAGINALIS IS PRESENT. This liquid based Th inPrep(R) pap test was screened withthe use of an image guided system. Start: 09-19-[address] Mika estrada MD Work Phone: Start: 08-23-2024 Screening mammography Angelina Coughlin MD Work Phone: Start: 08-23-2024 US scan of thyroid Dr. Mika Coughlin MD Work Phone: Start: 07-22-2024 Radiologic exam ches t 2 views Sydni Gates VEHICLE MONITOR TECHNICIAN.[employer] Work Phone: Start: 01-28-2024 Radex foot complete minimum 3 views Marleni Irizarry VEHICLE MONITOR TECHNICIAN.[employer] Work Phone: Start: 10-11-2021 Screening mammography Start: 07-03-2021 US scan of thyroid H/O: surgery S/P thyroid biopsy History of tonsillectomy S/P tonsillectom y Plan of Treatment Date Care Activity Detail Author Start: 09-08-2026 Urine microalbumin profile DTa P,Tdap,Td Vaccine (2 - Td or Tdap) [facility] Start: 12-05-2024 [facility] Start: 11-23-2024 Hepatitis C antibody measurement [facility] Start: 11-23-2024 Serologic test for syphilis [facility] Start: 11-23-2024 [facility] Start: 11-14-2024 Influenza vaccination Influenz a Vaccine (Season Ended) [facility] Start: 09-19-2024 Colonoscopy DIAGNOSTIC COLONOSCOPY [facility] Start: 09-19-2024 Colonoscopy flx dx w /collj spec when pfrmd DIAGNOSTIC COLONOSCOPY [facility] Start: 09-19-2024 Egd transoral biopsy single/multiple EGD BIOPSY SINGLE/MULTIPLE [facility] Start: 09-19-2024 Patient discharge [facility] Start: 08-15-2024 Colonoscopy [facility] Start: 08-15-2024 [facility] Start: 11-15-2023 Covid-19 Vaccine ( season) Covid-19 Vaccine ( season) [facility] Start: 11-15-2023 Influenza vaccination Influenza Vacc ine (#1) [facility] Start: 02-21-2023 End: 03-07-2023 Influenza virus A and B RNA and SARS-CoV-2 (COVID-19) N gene panel - Respiratory specimen by DIONISIO with probe detection COVID & INFLUENZA A/B NAAT, ROUTINE Microbiology Routine Viral illness Expected: 02/21/2023, Expires: 03/07/2023 [facility] Work Phone: Comment on above: Expected: 02/21/2023 , Expires: 03/07/2023 Start: 11-14-2022 Covid-19 Vaccine () Covid-19 Vaccine () [facility] Start: 03-16-2022 DEPRESSION ASSESSMENT DEPRESSION ASS ESSMENT [facility] Start: 11-14-2021 Influenza vaccination C [facility] Start: 2021 COLOGUARD (FIT-DNA) COLOGUARD (FIT-D NA) [facility] Start: 2021 Colonoscopy COLONOSCOPY [facility] Start: 2021 COLORECTAL CANCER SCREENING COLORECTAL CANCER SCREENING [facility] Start: [address] COLONOGRAPHY [facility] Start: 2021 DIABETES SCREEN DIABETES SCREEN [facility] Start: 2021 Diabetes Screening Diabetes Screenin g [facility] Start: 2021 FECAL OCCULT BLOOD FECAL OCCULT BLOO D [facility] Start: 2021 Lipid 1996 panel - S yumiko or Plasma Lipid Screening [facility] Start: 2021 Lipid panel Lipid Screening [facility] Start: 2021 LIPID SCREEN LIPID SCREEN [facility] Start: 2021 Screening for malign ant neoplasm of colon [facility] Start: 2021 SIGMOIDOSCOPY SIGMOIDOSCOPY [facility] Start: 11-28-2020 COVID-19 VACCINE (3 - Booster for Moderna series) COVID-19 VACCINE (3 - Booster for Moderna series) [facility] Start: 08-23-2020 COVID-19 VACCINE (3 - Booster for Moderna series) COVID-19 VACCINE (3 - Booster for Moderna series) [facility] Start: 2016 Mammography [facility] Start: 2016 Screening for malign ant neoplasm of breast Mammogram Screening [facility] Start: 2006 HPV TESTING HPV TESTING [facility] Start: 1997 PAP TESTING PAP TESTING [facility] Start: 1997 Screening for malign ant neoplasm of cervix Cervical Cancer Screening [facility] Start: 1995 Hepatitis B Vaccine (1 of 3 - 19+ 3-dose series) Hepatitis B Vaccine (1 of 3 - 19+ 3-dose series) [facility] Start: 1995 Urine microalbumin profile DTAP,TDAP ,TD (1 - Tdap) [facility] Start: 1994 Anxiety Screening Anxiety Screening [facility] Start: 1994 Depression Screening Depression Scre ening [facility] Start: 1994 HEPATITIS C SCREENING HEPATITIS C [facility] Start: 1994 Hepatitis C screening Hepatitis C [facility] Start: 1994 HIV SCREENING HIV SCREENING [facility] Start: 1994 HIV screening HIV Screening [facility] Start: 1988 Adult depression scr [facility] assessment DEPRESSION SCREENING [facility] Start: 1976 HEPATITIS B (1 of 3 - 3-dose series) HEPATITIS B (1 of 3 - 3-dose series) [facility] Start: 1976 Hepatitis B Vaccine (1 of 3 - 3-dose series) Hepatitis B Vaccine (1 of 3 - 3-dose series) [facility] Albumin/Globulin [Ma ss Ratio] in Serum or Plasma by Electrophoresis [facility] Chlamydia deoxyribon ucleic acid detection [facility] Electrophoresis: albumin [facility] Electrophoresis: [id number] [facility] Electrophoresis: [id number] [facility] Electrophoresis: ai ma globulin [facility] Globulin measurement [facility] Hepatitis B virus rolle rface Ag [Presence] in Serum [facility] Liquid based cervica l cytology screening [facility] MG Breast - bilatera l Screening [facility] Protein electrophore sis panel - Serum or Plasma [facility] SARS-CoV-2 (COVID-19 ) RNA [Presence] in Respiratory specimen by DIONISIO with probe detection 2019 CORONAVIRUS Microbiology Routine URI, acute Ordered: 07/09/2021 [facility] Work Phone: Comment on above: Ordered: 07/09/2021 Serum protein electrophoresis [facility] Source specific culture [facility] Total globulins measurement [facility] Urine test [facility] Immunizations Immunization Date Immunization Notes Care Provider Eileen beckham 02-17-2023 influenza, injectabl e, quadrivalent, preservative free Marleni Irizarry VEHICLE MONITOR TECHNICIAN.[employer] Work Phone: [facility] 02-17-2023 influenza virus vacc ine, unspecified formulation Marleni Irizarry VEHICLE MONITOR TECHNICIAN.[employer] Work Phone: [facility] 02-10-2020 Seasonal, quadrivale nt, recombinant, injectable influenza vaccine, preservative free Marleni Irizarry VEHICLE MONITOR TECHNICIAN.[employer] Work Phone: [facility] 03-23-2019 influenza, injectabl e, quadrivalent, preservative free Marleni Irizarry VEHICLE MONITOR TECHNICIAN.[employer] Work Phone: [facility] 03-19-2018 influenza, injectabl e, quadrivalent, preservative free Marleni Irizarry VEHICLE MONITOR TECHNICIAN.[employer] Work Phone: [facility] 03-29-2017 Influenza, injectabl e, Madin [place] Canine Kidney, preservative free, quadrivalent Marleni Irizarry VEHICLE MONITOR TECHNICIAN.[employer] Work Phone: [facility] 09-08-2016 tetanus toxoid, redu iain diphtheria toxoid, and acellular pertussis vaccine, adsorbed Marleni Irizarry VEHICLE MONITOR TECHNICIAN.[employer] Work Phone: [facility] 01-12-2015 influenza, injectabl e, quadrivalent, preservative free Marleni Irizarry VEHICLE MONITOR TECHNICIAN.[employer] Work Phone: [facility] 01-03-2009 novel influenza-H1N1 -09, preservative-free, injectable Marleni Irizarry VEHICLE MONITOR TECHNICIAN.[employer] Work Phone: [facility] Payers Date Payer Category Payer Self-pay [id number] 2022 Medicaid [id number] 2022 Unknown [id number] 2017 Medicaid [employer] [id number] 2017-Present [phone] [address] [place] [address] Medicaid [id number] Unknown [id number] Unknown [id number] Unknown [id number] Unknown [id number] Unknown [id number] Unknown [id number] Unknown [id number] Unknown [id number] Unknown [id number] Unknown [id number] Unknown [id number] Unknown [id number] Unknown [id number] Unknown [id number] Social History Date Type Detail Facility Start: 12-21-2020 End: 03-06-2022 Tobacco smoking status DEIS Unknown if ever smoked [facility] Start: 1975 Sex Assigned At Female [facility] Start: 08-08-2020 End: 10-27-2024 Tobacco smoking status NHIS Never smoked tobacco [facility] Start: 08-08-2020 End: 05-07-2022 Tobacco use and exposure Smokeless tobacco non-user [facility] Start: 1975 Sex Assigned At Not on file [facility] Start: 06-29-2021 End: 07-09-2021 Exposure to SARS-CoV-2 (event) Not sure [facility] Work Phone: Start: 08-08-2020 End: 02-21-2023 History of Social function [facility] Start: 08-08-2020 End: 02-21-2023 Tobacco use panel [facility] National Score (1-100), lower number is lower risk Not on file [facility] NEGATED: Highlighted row Not [facility] Goals Date Patient Goal Desired Activity /State Mental Status Date Assessment Result Facility 09-19-2024 Cognitive function Voice/Name [facility] Work Phone: Clinical Notes 07-09-2021 to 01-23-2025 Note Date & Type Note Facility 01-23-2025 Note HNO ID: [id number] Author: GUIDO STRONG PA-C Service: ? Author Type: Physician [employer] Type: Progress Notes Filed: 01/23/2025 16:22 Note Text: URGENT CARE ERIK Martinez is a 49 year old female. Patient presents with: Sinus Problem: sinus pressure, drainage, headache and cough x 4 days Patient is a 49-year-old female who complains of congestion, ear pressure and cough that she has been experiencing for the past 4 days. Patient denies fever, chills or myalgia. Patient states she initially developed a sore throat which has since resolved. Patient has no history of asthma or COPD and does not smoke. Patient is taking [id number] medications with no significant improvement in her symptoms. Patient reports that her sinus congestion and cough are worse at night. Sinus Problem Associated symptoms include congestion, coughing and a sore throat. Review of Systems HENT: Positive for congestion, ear pain, postnasal drip, rhinorrhea, sinus pressure and sore throat. Respiratory: Positive for cough. All other systems reviewed and are negative. Objective BP 132/80 Pulse 76 Temp 36.1 ?C (96.9 ?F) Resp 16 Wt 135.8 kg (299 lb 6.2 oz) LMP 12/08/2024 (Approximate) SpO2 96% Physical Exam Vitals and nursing note reviewed. Constitutional: Appearance: Normal appearance. She is normal weight. HENT: Head: Normocephalic and atraumatic. Right Ear: Tympanic membrane, ear canal and external ear normal. Left Ear: Tympanic membrane, ear canal and external ear normal. Nose: Congestion present. Mouth/Throat: Mouth: Mucous membranes are moist. Pharynx: Oropharynx is clear. No oropharyngeal exudate or posterior oropharyngeal erythema. Eyes: Extraocular Movements: Extraocular movements intact. Conjunctiva/sclera: Conjunctivae normal. Pupils: Pupils are equal, round, and reactive to light. Cardiovascular: Rate and Rhythm: Normal rate and regular rhythm. Pulses: Normal pulses. Heart sounds: Normal heart sounds. Pulmonary: Effort: Pulmonary effort is normal. Breath sounds: Normal breath sounds. Musculoskeletal: Cervical back: Normal range of motion and neck supple. Skin: General: Skin is warm and dry. Capillary Refill: Capillary refill takes less than 2 seconds. Neurological: General: No focal deficit present. Mental Status: She is alert and oriented to person, place, and time. Psychiatric: Mood and Affect: Mood normal. Behavior: Behavior normal. Thought Content: Thought content normal. Judgment: Judgment normal. MDM Physical exam findings as noted above. Patient was provided with prescriptions for prednisone 20 mg and Tessalon 100 mg. Supportive care was discussed and the patient expresses excellent understanding of same. CLINICAL IMPRESSION: Acute URI; ETD Bilateral Ears ASSESSMENT/PLAN: 1. Acute URI - ICD9: 465.9, ICD10: J06.9 (primary diagnosis) - BENZONATATE 100 MG CAPSULE 2. Dysfunction of both eustachian tubes - ICD9: 381.81, ICD10: H69.93 - PREDNISONE 20 MG TABLET MDM Risk of Complications, Morbidity, and/or Mortality Presenting problems: low Diagnostic procedures: low Management options: kendall Strong PA-C [facility] 12-11-2024 Note HNO ID: [id number] Author: INES BUTLER APRN.[employer] Service: ? Author Type: Nurse Practitioner Type: Progress Notes Filed: 12/11/2024 10:58 Note Text: URGENT CARE ERIK Martinez is a 49 year old female. Patient presents with: Mouth/Lip Problem: Mouth is sore, foul taste in mouth, states she just finished atb x and has had sore mouth since, states possible thrush Mouth/Lip Problem The patient is a 49-year-old female presenting with oral thrush. Oral Thrush: - White coating on tongue extending to uvula and tonsils. - Associated xerostomia, paresthesia, and halitosis. - Recent antibiotic use for a UTI. - Denies dysphagia; reports altered taste, especially with sugary foods. 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 Review of Systems Ears/Nose/Mouth/Throat: (+) oral white coating, (+) oral dryness, (+) oral tingling, (+) halitosis, (+) dysgeusia No past medical history on file. No past surgical history on file. ALLERGIES Penicillins MEDICATIONS omeprazole (PRILOSEC) 20 mg capsule fluticasone (FLONASE) 50 mcg/actuation nasal spray Use 1 [place] in each nostril once daily. sertraline (ZOLOFT) 100 mg tablet Take 1 tablet by mouth once daily. nystatin (MYCOSTATIN) 100,000 unit/mL suspension Take 5 mL by mouth four times daily for 14 days. Swish and swallow. fluconazole (DIFLUCAN) 150 mg tablet Take 1 tablet by mouth one time only for 1 dose. montelukast (SINGULAIR) 10 mg tablet fluticasone (FLONASE) 50 mcg/actuation nasal spray Use 2 Sprays in each nostril once daily. Rinse mouth after use. (Patient not taking: Reported on 01/28/2024) busPIRone (BUSPAR) 7.5 mg tablet Take 1 tablet by mouth twice daily. (Patient not taking: Reported on 05/07/2022) naproxen (NAPROSYN) 500 mg tablet Take 1 tablet by mouth twice daily as needed (pain/inflammation, take with food.). (Patient not taking: Reported on 07/09/2021) No family history on file. SOCIAL HISTORY[1] Objective BP 114/74 Pulse 60 Temp 36.1 ?C (97 ?F) Resp 20 Wt (!) 137 kg (302 lb 0.5 oz) LMP 12/08/2024 (Approximate) SpO2 98% Physical Exam Constitutional: General: She is not in acute distress. Appearance: Normal appearance. She is normal weight. She is not toxic-appearing. HENT: Head: Normocephalic and atraumatic. Jaw: No trismus or swelling. Mouth/Throat: Mouth: Mucous membranes are moist. No injury, oral lesions or angioedema. Tongue: Tongue does not deviate from midline. Palate: No mass and lesions. Pharynx: Uvula midline. Postnasal drip present. No pharyngeal swelling, oropharyngeal exudate, posterior oropharyngeal erythema or uvula swelling. Tonsils: No tonsillar exudate or tonsillar abscesses. Comments: White coating on tongue Cardiovascular: Rate and Rhythm: Normal rate and regular rhythm. Pulses: Normal pulses. Heart sounds: Normal heart sounds. Pulmonary: Effort: Pulmonary effort is normal. Breath sounds: Normal breath sounds. Lymphadenopathy: Cervical: No cervical adenopathy. Neurological: Mental Status: She is alert. { 1. Thrush (B37.0) - Recent antibiotic use for STI. - Start oral fluconazole (Diflucan) single dose. - Start oral nystatin suspension, swish and swallow, for 14 days. - Advised to replace toothbrush 24 hours after starting treatment and again at end of treatment. - Patient expressed understanding and agreement with plan. and Recording using Tbricks software for draft documentation of the visit was discussed with the patient/authorized underwriting account representative; all questions welcomed and answered. Patient/authorized underwriting account representative agreed to proceed Differential Diagnoses - Thrush is more likely for the following reason(s): suggested by HANDP - HAM STRIPPER/deep neck tissue infection/tonisilitis is less likely for the following reason(s): HANDP not suggestive Disposition The patient was discharged. [1] Social History Tobacco Use Smoking status: Never Smokeless tobacco: Never [facility] 12-05-2024 Progress note [facility] 12-05-2024 Progress note Note Date/Time December 05, 2024 4:07pm [facility] [address], [address] [place] [address] OFFICE VISIT Date of Service: 12/05/24 MR#: [id number] Acct: [id number] Name: DANYA MARTINEZ Rep #: [id number] : 1975 Provider: Dr. Zachary Martinez MD Age/Sex: 49/F Location: [facility] Status: Signed Intake Vital Signs 10/20/24 09:12 11/23/24 08:26 12/05/24 15:26 Height 5 ft 8 in 5 ft 8 in 5 ft 8 in Weight: 300 lb 7 oz BMI 45.6 BP 111/78 Intake Visit Reasons: [place] for ASCUS, +HPV Chief Complaint: Colposcopy Glost Kiln Operator Required: No Is patient in pain?: No Allergies Penicillins Allergy (Unknown, Verified 12/05/24 15:24) A CHILD, UNKNOWN RXN iodine Adverse Reaction (Verified 12/05/24 15:24) Rash Medications ?Medication ?Instructions ?Recorded ?Confirmed ?Type fluticasone propionate 50 50 mcg intranasal QDAY PRN 0 03/20/17 12/05/24 History mcg/actuation nasal allergies spray,suspension (Flonase Allergy Relief) sertraline 100 mg tablet (Zoloft) 100 mg PO QDAY 03/2012/05/24 History multivitamin 1 tab PO DAILY 03/12/2311/15 History omeprazole 40 mg capsule,delayed 40 mg PO DAILY 12/05/24 History release cetirizine 10 mg tablet (24Hour 10 mg PO DAILY 5 12/05/24 History Allergy) montelukast 10 mg tablet 10 mg PO DAILY 09/14/2411/15 History Is last menstrual period known: Yes Last Menstrual Period: 11/30/24 Post menopausal: No Patient : No : No PFSH PFSH Medical History IBS (irritable bowel syndrome) Wears contact lenses Colonoscopy planned Gastric reflux Screening for colon cancer Family history of colon cancer IGT (impaired glucose tolerance) Morbid obesity Allergic rhinitis Anxiety Surgical History S/P thyroid biopsy S/P wisdom tooth extraction S/P tonsillectomy Family History Father Colon cancer Alcoholism Mother CVA (cerebral vascular accident) Hypertension Diabetes Heart disease Anxiety Arthritis Bowel disease Depression Sister Seizures Daughter Anxiety Asthma Grandmother Breast cancer maternal Cervical cancer paternal Colon cancer paternal Social History number of children: 2 current occupational status: employed current occupation: [employer] Smoking Status: Never smoker second hand exposure: No alcohol intake: never substance use type: does not use caffeine: No what type of physical activity do you participate in: none frequency: does not exercise seatbelt use: always additional social history: Single History 3 Elective abortions Hx Para 2 Spontaneous abortions 1 Hx # Term Pregnancies Ectopic pregnancies Hx # Pregnancies Multiple births # of living children 2 Past Pregnancies Del. Date Name GA/Weeks Outcome Route Bth Weight Infant Gen Labor Lgth Anesthesia Del Locatn Provider FOB Unknown Gillian 2008 Female Unknown Leno 2010 Male HPI [place] for ASCUS, +HPV Details: DANYA MARTINEZ is a 49 year old who presents for colpscopy Female Reproductive History Last Menstrual Period: 11/30/24 ROS Const Constitutional: Reports system reviewed and no additional complaints, except as documented; Denies chills, fever(s), weight gain or weight loss GI GI: Reports as per HPI; Denies abdominal pain, bloating, constipation, cramping, nausea or vomiting : Reports as per HPI; Denies urinary frequency, urinary incontinence, urinary urgency, vaginal discharge or vaginal dryness Exam Const General: cooperative, healthy appearing, comfortable and well developed Orientation: alert HENMT Head: normal to inspection Resp Effort & Inspection: normal respiratory effort GI Inspection: normal to inspection and non-distended Palpation: soft, no hepatosplenomegaly and no guarding External Female Exam: normal external appearance and normal appearance of the urethra Urethra: normal appearance of the urethra Speculum Exam - Vagina: normal appearance of the vagina, normal vaginal discharge and no lesions Office Procedures Colposcopy Colposcopy Reason for colposcopy: ASCUS and positive HR HPV types Pap/JAMAAL history: no prior abnormal pap Consent Signed: Yes Time out performed: Yes Time: 16:06 Acetowhite epithelium (cervix): 6 o'clock Punctation (cervix): 6 o'clock Mosaicism (cervix): none Abnormal vessels (cervix): none Biopsies (cervix): 6 o'clock Cervix+upper/adj vag+bx cervix+ECC: Yes biopsy Details: adequate colposcopy dilute acetic acid applied and entire SCJ visualized with above noted findings seen. patient tolerated procedure well without complications. Coding Level of Care Code Attention Blast Furnace Checker Diagnoses ASCUS with positive high risk HPV Possible exposure to STD Z20.2 CPT Codes Colposcopy - Cervix+upper/adj vag+bx cervix+ECC: Yes (32361) Assessment and Plan Assessment and Plan (1) ASCUS with positive high risk HPV: Status: Acute Comment: colp; RTO on 12/05 for colposcopy. (2) Possible exposure to STD: Status: Acute Orders: Orders Colposcopy Today Dr. Sury Tellez DO R87.610 - Atypical squamous cells of undetermined significance on cytologic smear of cervix (ASC-US), R87.810 - Cervical high risk human papillomavirus (HPV) DNA test positive POC Trichomonas Vaginalis Today Dr. Shilpa Martinez MD Z20.2 - Contact with and (suspected) exposure to infections with a predominantly sexual mode of transmission Plan Problem list updated and treatment plans were reviewed with the patient and relevant educational handouts given. See problem list details for specific planinformation. 12/05/24 1607 <Electronically signed by Shilpa velasco MD> Date _ Shilpa Martinez MD Cosigner Signature: Date (if applicable) CC: ~ [facility] Work Phone: 1(630) 757-305007-07-2025 Consult note [facility] Medical Records Department [address] [place] [address] Anesthesia Postop Eval II 09/19/24 1124 MR#: [id number] Acct: [id number] Name: DANYA MARTINEZ Rep #:[id number] : 1975 49 From: Andrés Coleman MD PCP: Dr. Mika Coughlin MD Status:RE G SDC Y Race: C Location: [place] [address] Anesthesia Postop Eval I Sum Postop Eval Completion status Anesthesia document: Postop Eval 1 completed: Yes Anesthesia Postop Eval I Summary Anesthesia Postop Eval I Summary: Anesthesia Postop Eval I: Assessment Summary Airway patent Yes 09/19/24 10:46 [email or web address] Spontaneous unlabored Yes 09/19/24 10:46 [email or web address] respirations Mental status Asleep 09/19/24 10:46 [email or web address] nausea No 09/19/24 10:46 [email or web address] Vomiting No 09/19/24 10:46 [email or web address] Anesthesia Postop Eval I: Fluid Summary Crystalloid volume administer 700 09/19/24 10:46 [email or web address] (ml) Colloids volume administered ( ml) Blood Product volume administered (ml) Total IV fluid infused 700 09/19/24 10:46 [email or web address] Anesthesia Postop Eval I: Summary Notes Anesthesia Complication No 09/19/24 10:46 [email or web address] Anesthesia Complication Comment: Post-operative progress note Anesthesia: Postop Eval II Evaluation Mental status: Awake Pain Level: 0 nausea: No Vomiting: No 09/19/24 1124 > Date _ Andrés Coleman MD Cosign Signature: Date CC: ~ Signed [facility]07-07-2025 Consult note Author Andrés elena [facility] Note Date/Time September 19, 2024 9:18a [facility] Medical Records Department [address] [place] [address] Pre-Anesthesia Evaluation 09/19/24916 MR#: [id number] Acct: [id number] Name: DANYA MARTINEZ Maral Rep #:[id number] : 1975 49 From: Andrés Coleman MD PCP: Dr. Mika Coughlin MD Status:RE G SDC Y Race: C Location: [place] [address]- ASA Classification* ASA Classification ASA Classification: 3 Assessment & Plan Anesthesia* Anesthesia Assessment Anesthesia Assessment: Discussed sedation and/or anesthesia options, risks, benefits, and alternatives with patient/parents/legal guardian/POA. Questions invited. The patient/parents/legal guardian/POA seems to understand and agrees to proceedwith anesthesia plan. Reviewed the physical assessment, medical history, allergy history and patient home medications list prior to surgery/procedure/anesthetic and documented any changes. Performed airway and anesthesia risk assessments. Anesthesia Type Anesthesia Type: MAC Anesthesia Focused Assessment* Temperature: 97.4 F Pulse Rate: 60 Blood Pressure: 111/73 Respiratory Rate: 16 Pulse Ox: 94 Airway Assessment Mouth opens: >3 cm Mallampati Score: II Labs Anesthesia Preop lab: CBC WBC 5.8 K/mm3 (4.4-11.0) 08/12/24 14:40 08/12/24 RBC 4.27 M/mm3 (4.2-5.4) 08/12/24 14:40 08/12/24 Hgb 11.5 g/dL (12.0-15.0) L 08/12/24 14:40 5 Hct 37.0 % (37-47) 08/12/24 14:40 08/12/24 Plt Count 310 K/mm3 (150-450) 08/12/24 14:40 08/12/24 CHEMISTRY Potassium 4.1 mmol/L (3.3-5.1) 08/12/24 14:40 08/12/24 Sodium 137 mmol/L (133-145) 08/12/24 14:40 08/12/24 BUN 13 mg/dL (4-19) 08/12/24 14:40 08/12/24 Creatinine 0.92 mg/dL (0.70-1.20) 08/12/24 14:40 08/12/24 Glucose 101 mg/dL (70-99) H 08/12/24 14:40 08/12/24 TSH 1.43 uIU/mL (0.358-3.74) 03/19/17 09:44 COAG Urine Test Negative Negative 09/19/24 08:45 09/19/24 Pre-Assessment Diagnosis/Proposed Procedure Planned Operative Procedure(s): colonoscopy, egd Anesthesia History 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 When Was Last Pacemaker Check QUESTION #4 FULL TEXT: You/Your Family Experience fever (hyperthermia) with Anesthesia Last Oral Intake Last Oral intake: Last Oral Intake NPO since 21:00 09/19/24 08:53 Meds taken in AM with sips of No 09/19/24 08:53 water? Meds patient instructed to take am of surgery PONV PONV - ticketing clerk: PONV - ticketing clerk Female Yes 09/14/24 11:07 HX of Motion Sickness No 09/14/24 11:07 HX of N/V After Surgery No 09/14/24 11:07 Non-Smoker Yes 09/14/24 11:07 Duration of Surgery greater No 09/14/24 11:07 than 60 minutes Number of Risk Factors 2 09/14/24 11:07 PONV Score Moderate Risk 09/14/24 11:07 Height & Weight Height & Weight: Anesthesia: Height & Weight Height 5 ft 8 in 09/19/24 08:53 Weight: 134.1 kg 09/19/24 08:53 Body Mass Index (BMI) 44.9 09/19/24 08:53 Respiratory Assessment Respiratory Assessment - ticketing clerk: Respiratory Tract Infection Hx - ticketing clerk Hx Respiratory Tract Infection No 09/14/24 11:07 STOP Sleep Apnea STOP Sleep Apnea - ticketing clerk: STOP Sleep Apnea - ticketing clerk Hx Hypertension No 09/14/24 11:07 Hx Sleep Apnea No 09/14/24 11:07 CPAP BIPAP Do you snore loudly (louder No 09/14/24 11:07 than talking or can be heard Do you often feel tired/ No 09/14/24 11:07 fatigued/ sleepy during daytime? Has anyone observed you stop No 09/14/24 11:07 breathing during sleep? STOP Results Negative 09/14/24 11:07 QUESTION #5 FULL TEXT : Do you snore loudly (louder than talking or can be heard through closed doors)? Tobacco Use History Tobacco Use History - ticketing clerk: Tobacco Use History - ticketing clerk Tobacco Use Smoking Status Never smoker 09/14/24 11:07 Hx Tobacco Use No 09/14/24 11:07 Years Smoking Packs Smoked per Day Smoking Cessation Date was within the last 15 years Hx Smoking Cessation Date Hx Smoking Cessation Counseling Hematologic Medial History Hematologic Hx - ticketing clerk: Hematologic Medical Hx - documentation manager Hx of Blood Transfusion No 09/14/24 11:07 Hx of Transfusion in last 3 No 09/14/24 11:07 Months Date of Last Transfusion (if within last 3 months) Ever experience any problems No 09/14/24 11:07 with transfusion(s)? Specify any problems Hx of Preganancy in last 3 No 09/14/24 11:07 Months Nurse Filling Out Transfusion [email or web address] 09/14/24 11:07 & Questions: Date: 09/14/24 09/14/24 11:07 Time: 11:09 09/14/24 11:07 Patient unable to answer at this time (ie. confused, unrespo /Reproduction History /Reproductive History - ticketing clerk: /Reproductive Hx- ticketing clerk Hx Now No 09/14/24 11:07 Gestational Age (in weeks): EDC: Hx Hx Para Hx Section SAB No 09/14/24 11:07 Active Medications Active Medications: Current Medications Generic Name Dose Route Start Last Admin Trade Name Freq PRN Reason Stop Dose Admin Lactated Ringer's 1,000 mls @ 15 mls/hr 09/19/24 08:45 09/19/24 09:03 IV 15 mls/hr .Q48H ARAVIND Administration PFSH Medical History Wears contact lenses Colonoscopy planned Gastric reflux Screening for colon cancer Family history of colon cancer IGT (impaired glucose tolerance) Morbid obesity Allergic rhinitis Anxiety Home Medications ?Medication ?Instructions ?Recorded ?Last Taken ?Type fluticasone propionate 50 50 mcg intranasal QDAY PRN 0 03/20/17 Unknown History mcg/actuation nasal allergies spray,suspension (Flonase Allergy Relief) sertraline 100 mg tablet (Zoloft) 100 mg PO QDAY 03/2009/18/24 History multivitamin 1 tab PO DAILY 03/12/23 Unkn own History omeprazole 40 mg capsule,delayed 40 mg PO DAILY 09/18/24 History release cetirizine 10 mg tablet (24Hour 10 mg PO DAILY 5 Unknown History Allergy) montelukast 10 mg tablet 10 mg PO DAILY 09/14/24 Unkn own History Allergy/AdvReac Type Severity Reaction Status Date / Time Penicillins Allergy Unknown A Verified 09/19/24 08:52 CHILD, UNKNOWN RXN iodine AdvReac Rash Verified 09/19/24 08:52 Family History Father Colon cancer Mother CVA (cerebral vascular accident) Hypertension Diabetes Heart disease Sister Seizures Surgical History S/P thyroid biopsy S/P wisdom tooth extraction S/P tonsillectomy Social History Smoking Status: Never smoker second hand exposure: No alcohol intake: never substance use type: does not use caffeine: No what type of physical activity do you participate in: none frequency: does not exercise seatbelt use: always Review of Systems (Anesthesia) ROS Narrative System reviewed and no additional complaints, except as documented. 09/19/24917 <Electronically signed by Andrés Coleman MD > Date _ Andrés Coleman MD Cosigner Signature: Date CC: ~ Signed [facility] Work Phone: [phone]) [phone] Procedure note [facility] Medical Records Department [address] [place] [address] Colonoscopy Report MR#: [id number] Acct: [id number] Name: DANYA MARTINEZ Rep #:[id number] : 1975 49 From: Vinh Man MD PCP: Dr. Mika Coughlin MD Status:[facility] Patient Name: Danya Martinez Procedure Date: 09/19/2024 10:21 AM Date of : 1975 Age: 49 Procedure: Colonoscopy Indications: Screening in patient at increased risk: Family history of 1st-degree relative with colorectal cancer Providers: Vinh Man MD Referring MD: Mika Coughlin Medicines: Monitored Anesthesia Care Patient Profile: Refer to note in patient chart for documentation of history and physical. Patient has symptoms of chronic heartburn. Refer to note in patient chart for documentation of history and physical. Last Colonoscopy: none. The patient's first colonoscopy is today. Complications: No immediate complications. Estimated blood loss: None. Procedure: Pre-Anesthesia Assessment: - Prior to the procedure, a History and Physical was performed, and patient medications and allergies were reviewed. The patient's tolerance of previous anesthesia was also reviewed. The risks and benefits of the procedure and the sedation options and risks were discussed with the patient. All questions were answered, and informed consent was obtained. Prior Anticoagulants: The patient has taken no anticoagulant or antiplatelet agents. ASA Grade Assessment: II - A patient with mild systemic disease. After reviewing the risks and benefits, the patient was deemed in satisfactory condition to undergo the procedure. - Prior to the procedure, a History and Physical was performed, and patient medications and allergies were reviewed. The patient's tolerance of previous anesthesia was also reviewed. The risks and benefits of the procedure and the sedation options and risks were discussed with the patient. All questions were answered, and informed consent was obtained. Prior Anticoagulants: The patient has taken no anticoagulant or antiplatelet agents. ASA Grade Assessment: II - A patient with mild systemic disease. After reviewing the risks and benefits, the patient was deemed in satisfactory condition to undergo the procedure. After I obtained informed consent, the scope was passed under direct vision. Throughout the procedure, the patient's blood pressure, pulse, and oxygen saturations were monitored continuously. The colonoscope was introduced through the anus and advanced to the cecum, identified by appendiceal orifice and ileocecal valve. The ileocecal valve, appendiceal orifice, and rectum were photographed. The entire colon was well visualized. The colonoscopy was performed without difficulty. The patient tolerated the procedure well. The quality of the bowel preparation was adequate. Moderate Sedation: See the other procedure note for documentation of moderate sedation with intraservice time. Scope In: 10:24:56 AM Scope Withdrawal Time 0 hours 6 minutes 2 seconds Scope Out: 10:36:27 AM Total Procedure Duration Time 0 hours 11 minutes 31 seconds Findings: The perianal and digital rectal examinations were normal. Internal hemorrhoids were found during retroflexion. The hemorrhoids were mild. The exam was otherwise without abnormality on direct and retroflexion views. Impression: - Internal hemorrhoids. - The examination was otherwise normal on direct and retroflexion views. - No specimens collected. Recommendation: - Discharge patient to home (ambulatory). - High fiber diet. - Repeat colonoscopy in 7 years for screening purposes. - Return to my office PRN. - Continue present medications. Procedure Code(s): --- Professional --- G0105, Colorectal cancer screening; colonoscopy on individual at high risk Diagnosis Code(s): --- Professional --- K64.8, Other hemorrhoids Z80.0, Family history of malignant neoplasm of digestive organs CPT copyright 2021 [employer]. All rights reserved. The codes documented in this report are preliminary and upon steel detailer review may be revised to meet current compliance requirements. Vinh Man MD 09/19/2024 10:46:39 AM This report has been signed electronically. Number of Addenda: 0 Note Initiated On: 09/19/2024 10:21 AM 09/19/24 1046 Date _ Vinh Man MD Cosigner Signature: Date (if indicated) CC: Dr. Mika Coughlin MD; Dr. Vinh Man MD ~ Date Dictated: 09/19/24 1021 Date Transcribed: Butcher'S Assistant: BENEDICT Signed [facility]07-07-2025 Procedure note [facility] Medical Records Department [address] [place] [address] Operative Report - CC Letter MR#: [id number] Acct: [id number] Name: DANYA MARTINEZ Rep #:[id number] : 1975 49 From: Vinh Man MD PCP: Dr. Mika Coughlin MD Status:[facility] [place]/19/2024 Mika Coughlin [address] [place] [address] Re : Colonoscopy procedure for Danya Martinez Dear Dr. Coughlin This procedure was performed on Thursday, September 19, 2024. My impressions and recommendations are as follows: Impressions : - Internal hemorrhoids. - The examination was otherwise normal on direct and retroflexion views. - No specimens collected. Recommendations : - Discharge patient to home (ambulatory). - High fiber diet. - Repeat colonoscopy in 7 years for screening purposes. - Return to my office PRN. - Continue present medications. My findings are described in the full procedure note, which is enclosed. If I can be of further assistance, please feel free to contact me at . Sincerely, Vinh Man MD 09/19/2024 10:46:39 AM This report has been signed electronically. 09/19/24 1046 Date _ Vinh Man MD Cosigner Signature: Date (if indicated) CC: Dr. Mika Coughlin MD; Dr. Vinh Man MD ~ Date Dictated: 09/19/24 1021 Date Transcribed: Butcher'S Assistant: BENEDICT Signed [facility]07-07-2025 Consult note [facility] Medical Records Department [address] [facility] [place] [address] Anesthesia Postop Eval I 09/19/24 1045 MR#: [id number] Acct: [id number] Name: DANYA MARTINEZ Rep #:[id number] : 1975 49 From: Bharat Curry PCP: Dr. Mika Coughlin MD Status:[facility] Y Race: C Location: [place] [address] Anesthesia: Postop Eval I Current Vital Signs Temperature: 98.2 F Pulse Rate: 62 Blood Pressure: 102/70 Respiratory Rate: 16 Pulse Ox: 98 Oxygen Delivery Method: Room Air Assessment Airway patent: Yes Spontaneous unlabored respirations: Yes Mental status: Asleep nausea: No Vomiting: No Anesthesia Complication: No Fluid Hydration Crystalloid volume administer (ml): 700 Total IV fluid infused: 700 Progress Note Anesthesia document: Postop Eval 1 completed: Yes 09/19/24 1046 > Date _ Bharat Pyane Signature: Date CC: ~ Signed [facility]07-07-2025 Procedure note [facility] Medical Records Department [address] [place] [address] EGD Report MR#: [id number] Acct: [id number] Name: DANYA MARTINEZ Rep #:[id number] : 1975 49 From: Vinh Man MD PCP: Dr. Mika Coughlin MD Status:[facility] Patient Name: Danya Martinez Procedure Date: 09/19/2024 9:59 AM Date of : 1975 Age: 49 Procedure: Upper GI endoscopy Indications: Heartburn Providers: Vinh Man MD Referring MD: Mika Coughlin Medicines: Monitored Anesthesia Care Patient Profile: Refer to note in patient chart for documentation of history and physical. Patient has symptoms of chronic heartburn. Refer to note in patient chart for documentation of history and physical. Complications: No immediate complications. Estimated blood loss: Minimal. Procedure: Pre-Anesthesia Assessment: - Prior to the procedure, a History and Physical was performed, and patient medications and allergies were reviewed. The patient's tolerance of previous anesthesia was also reviewed. The risks and benefits of the procedure and the sedation options and risks were discussed with the patient. All questions were answered, and informed consent was obtained. Prior Anticoagulants: The patient has taken no anticoagulant or antiplatelet agents. ASA Grade Assessment: II - A patient with mild systemic disease. After reviewing the risks and benefits, the patient was deemed in satisfactory condition to undergo the procedure. After obtaining informed consent, the endoscope was passed under direct vision. Throughout the procedure, the patient's blood pressure, pulse, and oxygen saturations were monitored continuously. The Endoscope was introduced through the mouth, and advanced to the second part of duodenum. The upper GI endoscopy was accomplished without difficulty. The patient tolerated the procedure well. Moderate Sedation: See the other procedure note for documentation of moderate sedation with intraservice time. Scope In: 10:16:49 AM Scope Out: 10:21:10 AM Total Procedure Duration Time 0 hours 4 minutes 21 seconds Findings: The first portion of the duodenum and second portion of the duodenum were normal. No gross lesions were noted in the entire examined stomach. Biopsies were taken with a cold forceps for Helicobacter pylori testing. Estimated blood loss was minimal. The examined esophagus was normal. Mucosa was biopsied with a cold forceps for histology randomly at the gastroesophageal junction. Verification of patient identification for the specimen was done by the nurse using the patient's name, date and medical record number. Estimated blood loss was minimal. The exam was otherwise without abnormality. Impression: - Normal first portion of the duodenum and second portion of the duodenum. - No gross lesions in the entire stomach. Biopsied. - Normal esophagus. Biopsied. - The examination was otherwise normal. Recommendation: - Discharge patient to home (ambulatory). - High fiber diet. - Await pathology results. - Repeat upper endoscopy after studies are complete for surveillance. - Return to my office PRN. - Continue present medications. Procedure Code(s): --- Professional --- 24341, Esophagogastroduodenoscopy, flexible, transoral; with biopsy, single or multiple Diagnosis Code(s): --- Professional --- R12, Heartburn CPT copyright 2021 [employer]. All rights reserved. The codes documented in this report are preliminary and upon steel detailer review may be revised to meet current compliance requirements. Vinh Man MD 09/19/2024 10:43:18 AM This report has been signed electronically. Number of Addenda: 0 Note Initiated On: 09/19/2024 9:59 AM 09/19/24 1043 Date _ Vinh Man MD Cosigner Signature: Date (if indicated) CC: Dr. Mika Coughlin MD; Dr. Vinh Man MD ~ Date Dictated: 09/19/24 0959 Date Transcribed: Butcher'S Assistant: BENEDICT Villafana [facility]07-07-2025 Procedure note [facility] Medical Records Department [address] [place] [address] Operative Report - CC Letter MR#: [id number] Acct: [id number] Name: DANYA MARTINEZ Rep #:[id number] : 1975 49 From: Vinh Man MD PCP: Dr. Mika Coughlin MD Status:[facility] [place]/19/2024 Mika Coughlin [address] [place] [address] Re : Upper GI endoscopy procedure for Danya Martinez Dear Dr. Coughlin This procedure was performed on Thursday, September 19, 2024. My impressions and recommendations are as follows: Impressions : - Normal first portion of the duodenum and second portion of the duodenum. - No gross lesions in the entire stomach. Biopsied. - Normal esophagus. Biopsied. - The examination was otherwise normal. Recommendations : - Discharge patient to home (ambulatory). - High fiber diet. - Await pathology results. - Repeat upper endoscopy after studies are complete for surveillance. - Return to my office PRN. - Continue present medications. My findings are described in the full procedure note, which is enclosed. If I can be of further assistance, please feel free to contact me at . Sincerely, Vinh Man MD 09/19/2024 10:43:18 AM This report has been signed electronically. 09/19/24 1043 Date _ Vinh Man MD Cosigner Signature: Date (if indicated) CC: Dr. Mika Coughlin MD; Dr. Vinh Man MD ~ Date Dictated: 09/19/2459 Date Transcribed: Butcher'S Assistant: SW Signed [facility]07-07-2025 Evaluation note* Diagnosis Onset Date Resolution Status Admit Date Family history of colon cancer acute September 19, 2024 8 :25am GERD (gastroesophageal reflux disease) acute September 19, 2024 8 :25am Irregular menses acute October 202024 9:12am Encounter for routine gynecological examination noneactive October 20, 2024 9:12am ASCUS with positive high risk HPV acute November 23, 2024 8:25am Possible exposure to STD acute November 23, 2024 8:25am ASCUS with positive high risk HPV acute December 05, 2024 3:52pm Possible exposure to STD acute December 05, 2024 3:52pm [facility] Work Phone: 1(205) 779-962607-07-2025 History and physical note [facility] Medical Records Department [address] [place] [address] History & Physical Exam 09/19/2455 MR#: [id number] Acct: [id number] Name: DANYA MARTINEZ Rep #:[id number] : 1975 49 From: Vinh Man MD PCP: Dr. Mika Coughlin MD Status:[facility] Location: [place] [address] HPI - General General Date of Admission: 09/19/24 Date of Service: 09/19/24 Chief Complaint: Colonoscopy HPI Narrative The patient is a 49-year-old female who is being seen today for EGD and colonoscopy. She does have a family history of colon cancer. Her father and her paternal grandmother both of colon cancer.She herself is never had colon polyps although her sister has had colon polyps. Her last colonoscopy wasin 2018. She denies any new GI issues or complaints. She does also have chronic reflux disease and has been on omeprazole for about a year. She has never had an EGD as a baseline. [facility] Medical History Wears contact lenses Colonoscopy planned Gastric reflux Screening for colon cancer Family history of colon cancer IGT (impaired glucose tolerance) Morbid obesity Allergic rhinitis Anxiety Home Medications ?Medication ?Instructions ?Recorded ?Last Taken ?Type fluticasone propionate 50 50 mcg intranasal QDAY PRN 0 03/20/17 Unknown History mcg/actuation nasal allergies spray,suspension (Flonase Allergy Relief) sertraline 100 mg tablet (Zoloft) 100 mg PO QDAY 03/2009/18/24 History multivitamin 1 tab PO DAILY 03/12/23 Unkn own History omeprazole 40 mg capsule,delayed 40 mg PO DAILY 09/18/24 History release cetirizine 10 mg tablet (24Hour 10 mg PO DAILY 5 Unknown History Allergy) montelukast 10 mg tablet 10 mg PO DAILY 09/14/24 Unkn own History Allergy/AdvReac Type Severity Reaction Status Date / Time Penicillins Allergy Unknown A Verified 09/19/24 08:52 CHILD, UNKNOWN RXN iodine AdvReac Rash Verified 09/19/24 08:52 Family History Father Colon cancer Mother CVA (cerebral vascular accident) Hypertension Diabetes Heart disease Sister Seizures Surgical History S/P thyroid biopsy S/P wisdom tooth extraction S/P tonsillectomy Social History Smoking Status: Never smoker second hand exposure: No alcohol intake: never substance use type: does not use caffeine: No what type of physical activity do you participate in: none frequency: does not exercise seatbelt use: always ROS Constitutional Constitutional: Reports systems reviewed and no addt'l complaints, except as documented Eyes Eyes: Reports systems reviewed and no addt'l complaints, except as documented ENT HEENT: Reports systems reviewed and no addt'l complaints, except as documented Cardiovascular Cardiovascular: Reports systems reviewed and no addt'l complaints, except as documented Respiratory/Chest Respiratory/Chest: Reports systems reviewed and no addt'l complaints, except as documented Gastrointestinal Gastrointestinal: Reports systems reviewed and no addt'l complaints, except as documented Genitourinary Genitourinary: Reports systems reviewed and no addt'l complaints, except as documented Vital Signs Vital Signs Vital Signs: 09/19/24 08:53 09/19/24 08:53 09/19/24 09:18 Temperature 97.4 F L 97.4 F L Temperature Source Temporal Pulse Rate 60 60 Respiratory Rate 16 16 Respiratory Pattern Normal Blood Pressure 111/73 111/73 Blood Pressure Mean 85 Blood Pressure Source Monitor Blood Pressure Position Semi-Fowlers Blood Pressure Location Left Arm Pulse Ox 94 94 Oxygen Delivery Method Room Air Weight Weight: 295 lb 10.238 oz Body Mass Index (BMI) 44.9 Physical Exam Const alert, oriented x3 and no apparent distress Results Lab / Micro Data Labs: Laboratory Results - last 24 hr 09/19/24 08:45: Urine Test Negative Assessment & Plan Assessment/Plan (1) GERD (gastroesophageal reflux disease): QUALIFIERS: Esophagitis presence: esophagitis presence not specified Qualified Code(s): K21.9 - Gastro-esophageal reflux disease without esophagitis (2) Family history of colon cancer: PLAN: Plan EGD and colonoscopy planned for this morning 09/19/24 0957 Cosigner Signature (if applicable): CC: Dr. Mika Coughlin MD; Dr. Vinh Man MD~ Signed [facility]07-07-2025 [facility] Medical Records Department [address] [place] [id number] History Physical Exam 09/19/24 0955 MR#: [id number] Acct: [id number] Name: DANYA MARTINEZ Rep #: [id number] : 1975 49 From: Vinh Man MD PCP: Dr. Mika Coughlin MD [place] [place]: [place] [address] HPI - General General Date of Admission: 09/19/24 Date of Service: 09/19/24 Chief Complaint: Colonoscopy HPI Narrative The patient is a 49-year-old female who is being seen today for EGD and colonoscopy. She does have a family history of colon cancer. Her father and her paternal grandmother both of colon cancer. She herself is never had colon polyps although her sister has had colon polyps. Her last colonoscopy was in 2018. She denies any new GI issues or complaints. She does also have chronic reflux disease and has been on omeprazole for about a year. She has never had an EGD as a baseline. [facility] Medical History Wears contact lenses Colonoscopy planned Gastric reflux Screening for colon cancer Family history of colon cancer IGT (impaired glucose tolerance) Morbid obesity Allergic rhinitis Anxiety Home Medications ???Medication ???Instructions ???Recorded ???Last Taken ???Type fluticasone propionate 50 50 mcg intranasal QDAY PRN 8 Unknown History mcg/actuation nasal allergies spray,suspension (Flonase Allergy Relief) sertraline 100 mg tablet (Zoloft) 100 mg PO QDAY 03/20/17 09/18/24 History multivitamin 1 tab PO DAILY 03/12/23 Unknown Hi story omeprazole 40 mg capsule,delayed 40 mg PO DAILY 03/12/23 09/18/24 H istory release cetirizine 10 mg tablet (24Hour 10 mg PO DAILY 09/14/24 Unknown Hi story Allergy) montelukast 10 mg tablet 10 mg PO DAILY 09/14/24 Unknown Hi story Allergy/AdvReac Type Severity Reaction Status Date / Time Penicillins Allergy Unknown A Verified 09/19/24 08:52 CHILD, UNKNOWN RXN iodine AdvReac Rash Verified 09/19/24 08:52 Family History Father Colon cancer Mother CVA (cerebral vascular accident) Hypertension Diabetes Heart disease Sister Seizures Surgical History S/P thyroid biopsy S/P wisdom tooth extraction S/P tonsillectomy Social History Smoking Status: Never smoker second hand exposure: No alcohol intake: never substance use type: does not use caffeine: No what type of physical activity do you participate in: none frequency: does not exercise seatbelt use: always ROS Constitutional Constitutional: Reports systems reviewed and no addt'l complaints, except as documented Eyes Eyes: Reports systems reviewed and no addt'l complaints, except as documented ENT HEENT: Reports systems reviewed and no addt'l complaints, except as documented Cardiovascular Cardiovascular: Reports systems reviewed and no addt'l complaints, except as documented Respiratory/Chest Respiratory/Chest: Reports systems reviewed and no addt'l complaints, except as documented Gastrointestinal Gastrointestinal: Reports systems reviewed and no addt'l complaints, except as documented Genitourinary Genitourinary: Reports systems reviewed and no addt'l complaints, except as documented Vital Signs Vital Signs Vital Signs: 09/19/24 08:53 09/19/24 08:53 09/19/24 09:18 Temperature 97.4 F L 97.4 F L Temperature Source Temporal Pulse Rate 60 60 Respiratory Rate 16 16 Respiratory Pattern Normal Blood Pressure 111/73 111/73 Blood Pressure Mean 85 Blood Pressure Source Monitor Blood Pressure Position Semi-Fowlers Blood Pressure Location Left Arm Pulse Ox 94 94 Oxygen Delivery Method Room Air Weight Weight: 295 lb 10.238 oz Body Mass Index (BMI) 44.9 Physical Exam Const alert, oriented x3 and no apparent distress Results Lab / Micro Data Labs: Laboratory Results - last 24 hr 09/19/24 08:45: Urine Test Negative Assessment Plan Assessment/Plan (1) GERD (gastroesophageal reflux disease): QUALIFIERS: Esophagitis presence: esophagitis presence not specified Qualified Code(s): K21.9 - Gastro-esophageal reflux disease without esophagitis (2) Family history of colon cancer: PLAN: Plan EGD and colonoscopy planned for this morning 09/19/24 0957 Cosigner Signature (if applicable): CC: Dr. Mika Coughlin MD; Dr. Vinh Man [facility] Consult note [facility] Medical Records Department [address] [place] [address] Pre-Anesthesia Evaluation 09/19/24 09 MR#: [id number] Acct: [id number] Name: DANYA MARTINEZ Rep #:[id number] : 1975 49 From: Andrés Coleman MD PCP: Dr. Mika Coughlin MD Status:[facility] [place] Race: C Location: [place] [address] ASA Classification* ASA Classification ASA Classification: 3 Assessment & Plan Anesthesia* Anesthesia Assessment Anesthesia Assessment: Discussed sedation and/or anesthesia options, risks, benefits, and alternatives with patient/parents/legal guardian/POA. Questions invited. The patient/parents/legal guardian/POA seems to understand and agrees to proceedwith anesthesia plan. Reviewed the physical assessment, medical history, allergy history and patient home medications list prior to surgery/procedure/anesthetic and documented any changes. Performed airway and anesthesia risk assessments. Anesthesia Type Anesthesia Type: MAC Anesthesia Focused Assessment* Temperature: 97.4 F Pulse Rate: 60 Blood Pressure: 111/73 Respiratory Rate: 16 Pulse Ox: 94 Airway Assessment Mouth opens: >3 cm Mallampati Score: II Labs Anesthesia Preop lab: CBC WBC 5.8 K/mm3 (4.4-11.0) 08/12/24 14:40 08/12/24 RBC 4.27 M/mm3 (4.2-5.4) 08/12/24 14:40 08/12/24 Hgb 11.5 g/dL (12.0-15.0) L 08/12/24 14:40 5 Hct 37.0 % (37-47) 08/12/24 14:40 08/12/24 Plt Count 310 K/mm3 (150-450) 08/12/24 14:40 08/12/24 CHEMISTRY Potassium 4.1 mmol/L (3.3-5.1) 08/12/24 14:40 08/12/24 Sodium 137 mmol/L (133-145) 08/12/24 14:40 08/12/24 BUN 13 mg/dL (4-19) 08/12/24 14:40 08/12/24 Creatinine 0.92 mg/dL (0.70-1.20) 08/12/24 14:40 08/12/24 Glucose 101 mg/dL (70-99) H 08/12/24 14:40 08/12/24 TSH 1.43 uIU/mL (0.358-3.74) 03/19/17 09:44 COAG Urine Test Negative Negative 09/19/24 08:45 09/19/24 Pre-Assessment Diagnosis/Proposed Procedure Planned Operative Procedure(s): colonoscopy, egd Anesthesia History 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 When Was Last Pacemaker Check QUESTION #4 FULL TEXT: You/Your Family Experience fever (hyperthermia) with Anesthesia Last Oral Intake Last Oral intake: Last Oral Intake NPO since 21:00 09/19/24 08:53 Meds taken in AM with sips of No 09/19/24 08:53 water? Meds patient instructed to take am of surgery PONV PONV - ticketing clerk: PONV - ticketing clerk Female Yes 09/14/24 11:07 HX of Motion Sickness No 09/14/24 11:07 HX of N/V After Surgery No 09/14/24 11:07 Non-Smoker Yes 09/14/24 11:07 Duration of Surgery greater No 09/14/24 11:07 than 60 minutes Number of Risk Factors 2 09/14/24 11:07 PONV Score Moderate Risk 09/14/24 11:07 Height & Weight Height & Weight: Anesthesia: Height & Weight Height 5 ft 8 in 09/19/24 08:53 Weight: 134.1 kg 09/19/24 08:53 Body Mass Index (BMI) 44.9 09/19/24 08:53 Respiratory Assessment Respiratory Assessment - ticketing clerk: Respiratory Tract Infection Hx - ticketing clerk Hx Respiratory Tract Infection No 09/14/24 11:07 STOP Sleep Apnea STOP Sleep Apnea - ticketing clerk: STOP Sleep Apnea - ticketing clerk Hx Hypertension No 09/14/24 11:07 Hx Sleep Apnea No 09/14/24 11:07 CPAP BIPAP Do you snore loudly (louder No 09/14/24 11:07 than talking or can be heard Do you often feel tired/ No 09/14/24 11:07 fatigued/ sleepy during daytime? Has anyone observed you stop No 09/14/24 11:07 breathing during sleep? STOP Results Negative 09/14/24 11:07 QUESTION #5 FULL TEXT : Do you snore loudly (louder than talking or can be heard through closeddoors)? Tobacco Use History Tobacco Use History - ticketing clerk: Tobacco Use History - ticketing clerk Tobacco Use Smoking Status Never smoker 09/14/24 11:07 Hx Tobacco Use No 09/14/24 11:07 Years Smoking Packs Smoked per Day Smoking Cessation Date was within the last 15 years Hx Smoking Cessation Date Hx Smoking Cessation Counseling Hematologic Medial History Hematologic Hx - ticketing clerk: Hematologic Medical Hx - documentation manager Hx of Blood Transfusion No 09/14/24 11:07 Hx of Transfusion in last 3 No 09/14/24 11:07 Months Date of Last Transfusion (if within last 3 months) Ever experience any problems No 09/14/24 11:07 with transfusion(s)? Specify any problems Hx of Preganancy in last 3 No 09/14/24 11:07 Months Nurse Filling Out Transfusion [email or web address] 09/14/24 11:07 & Questions: Date: 09/14/24 09/14/24 11:07 Time: 11:09 09/14/24 11:07 Patient unable to answer at this time (ie. confused, unrespo /Reproduction History /Reproductive History - ticketing clerk: /Reproductive Hx- ticketing clerk Hx Now No 09/14/24 11:07 Gestational Age (in weeks): EDC: Hx Hx Para Hx Section SAB No 09/14/24 11:07 Active Medications Active Medications: Current Medications Generic Name Dose Route Start Last Admin Trade Name Freq PRN Reason Stop Dose Admin Lactated Ringer's 1,000 mls @ 15 mls/hr 09/19/24 08:45 09/19/24 09:03 IV 15 mls/hr .Q48H ARAVIND Administration PFSH Medical History Wears contact lenses Colonoscopy planned Gastric reflux Screening for colon cancer Family history of colon cancer IGT (impaired glucose tolerance) Morbid obesity Allergic rhinitis Anxiety Home Medications ?Medication ?Instructions ?Recorded ?Last Taken ?Type fluticasone propionate 50 50 mcg intranasal QDAY PRN 0 03/20/17 Unknown History mcg/actuation nasal allergies spray,suspension (Flonase Allergy Relief) sertraline 100 mg tablet (Zoloft) 100 mg PO QDAY 03/2009/18/24 History multivitamin 1 tab PO DAILY 03/12/23 Unkn own History omeprazole 40 mg capsule,delayed 40 mg PO DAILY 09/18/24 History release cetirizine 10 mg tablet (24Hour 10 mg PO DAILY 5 Unknown History Allergy) montelukast 10 mg tablet 10 mg PO DAILY 09/14/24 Unkn own History Allergy/AdvReac Type Severity Reaction Status Date / Time Penicillins Allergy Unknown A Verified 09/19/24 08:52 CHILD, UNKNOWN RXN iodine AdvReac Rash Verified 09/19/24 08:52 Family History Father Colon cancer Mother CVA (cerebral vascular accident) Hypertension Diabetes Heart disease Sister Seizures Surgical History S/P thyroid biopsy S/P wisdom tooth extraction S/P tonsillectomy Social History Smoking Status: Never smoker second hand exposure: No alcohol intake: never substance use type: does not use caffeine: No what type of physical activity do you participate in: none frequency: does not exercise seatbelt use: always Review of Systems (Anesthesia) ROS Narrative System reviewed and no additional complaints, except as documented. 09/19/24917 > Date _ Andrés Payne Signature: Date CC: ~ Signed [facility]06-11-2025 Radiology Diagnostic study note [facility] Imaging Services [address] [place], [place] [address] Thyroid MR#: [id number] Acct: [id number] Name: DANYA MARTINEZ Rep #: [id number] : 1975 F 49 From: Emanuel Richter MD PCP: Dr. Mika Coughlin MD Status: RE G CLI Study:Thyroid Date of Exam: 08/23/24 Exam# [id number] Ordering Dr: Mika Coughlin MD PROCEDURE: THYROID 08/23/2024 REASON FOR EXAM: Thyroid nodules. Follow-up examination. TECHNIQUE: High-frequency thyroid ultrasound, including grayscale and color-flow images. REFERENCE LINKS: TI-RADS Chart: [email or web address] TI-RADS Calculator Tool with Reference Images: [email or web address]/ COMPARISON: Prior study dated December 09, 2023. FINDINGS: Right thyroid lobe size: 5.6 cm 1.7 cm 1.9 cm Left thyroid lobe size: 5.5 cm 2.2 cm 1.7 cm Isthmus: 0.3 cm Background parenchymal echotexture is heterogeneous Nodules: . Lobe: Right, Location: Upper pole, Size: 1.3 cm x 1.2 cm 1 cm, Stability: Stable Composition: Solid or almost completely solid (+2) Echogenicity: Hypoechoic (+2) Margin: Smooth (+0) Shape: Wider than tall (+0) Echogenic Foci: None (+0) TI-RADS: <2 = TR 1 * 2 = TR 2 * 3 = TR 3 * 4-6 = TR 4 * >6 = TR 5 . Lobe: Left, Location: Upper pole, Size: 1.8 cm 1.3 cm 1.1 cm cm, Stability: Stable Composition: Mixed cystic and solid (+1) Echogenicity: Hypoechoic (+2) Margin: Smooth (+0) Shape: Wider than tall (+0) Echogenic Foci: None (+0) TI-RADS: <2 = TR 1 * 2 = TR 2 * 3 = TR 3 * 4-6 = TR 4 * >6 = TR 5 US/Thyroid IMPRESSION: Enlarged thyroid with heterogeneous echotexture. Stable bilateral thyroid nodules. RECOMMENDATION: Based on most suspicious nodule. Nodule size = largest diameter Only evaluate nodule if =>5 mm. Growth > 20% in 2 dimensions = worsening. Follow up to 4 nodules. Recommend biopsy for no more than 2 nodules. Reading Location: [place] [address] CC: Dr. Mika Coughlin MD ~ Butcher'S Assistant: Signed [facility]06-02-2025 Hospital Discharge instructionsAmbulatory Orders* Colonoscopy Time Frame: 08/15/24, Location: Determined By Patient * EGD Time Frame: 08/15/24, Location: Determined By Patient [facility] Work Phone: 1(164) 220-604006-02-2025 Evaluation note* Diagnosis Onset Date Resolution Status Admit Date Family history of colon cancer acute August 15, 2024 9:58am GERD (gastroesophageal reflu x disease) acute August 15, 2024 9 :58am Screening for colon cancer acute August 15, 2024 9:58am [facility] Work Phone: 1(387) 556-742206-02-2025 Evaluation note* Diagnosis Onset Date Resolution Status Admit Date Family history of colon cancer acute August 15, 2024 9:58am GERD (gastroesophageal reflu x disease) acute August 15, 2024 9 :58am Screening for colon cancer acute August 15, 2024 9:58am Family history of colon cancer acute September 19, 2024 8:25am GERD (gastroesophageal reflu x disease) acute September 19, 2024 8 :25am [facility] Work Phone: 1(867) 128-342006-02-2025 Evaluation note* Diagnosis Onset Date Resolution Status Admit Date Family history of colon cancer acute August 15, 2024 9:58am GERD (gastroesophageal reflu x disease) acute August 15, 2024 9 :58am Screening for colon cancer acute August 15, 2024 9:58am Family history of colon cancer acute September 19, 2024 8:25am GERD (gastroesophageal reflu x disease) acute September 19, 2024 8 :25am Encounter for routine gynecological examination noneactive October 20, 2024 9:12am Colon [facility] Work Phone: 1(966) 936-798206-02-2025 Evaluation note* Diagnosis Onset Date Resolution Status Admit Date Family history of colon cancer acute August 15, 2024 9:58am GERD (gastroesophageal reflu x disease) acute August 15, 2024 9 :58am Screening for colon cancer acute August 15, 2024 9:58am Family history of colon cancer acute September 19, 2024 8:25am GERD (gastroesophageal reflu x disease) acute September 19, 2024 8 :25am Irregular menses acute October 202024 9:12am Encounter for routine gynecological examination noneactive October 20, 2024 9:12am [facility] Work Phone: 1(590) 861-307406-02-2025 Evaluation note* Diagnosis Onset Date Resolution Status Admit Date Family history of colon cancer acute August 15, 2024 9 :58am GERD (gastroesophageal reflux disease) acute August 15, 2024 9 :58am Screening for colon cancer acute August 15, 2024 9:58am Family history of colon cancer acute September 19, 2024 8 :25am GERD (gastroesophageal reflux disease) acute September 19, 2024 8 :25am Irregular menses acute October 202024 9:12am Encounter for routine gynecological examination noneactive October 20, 2024 9:12am ASCUS with positive high risk HPV acute November 23, 2024 8:25am Possible exposure to STD acute November 23, 2024 8:25am Colon [facility] Work Phone: 1(618) 748-356806-02-2025 Evaluation note* Diagnosis Onset Date Resolution Status Admit Date Family history of colon cancer acute August 15, 2024 9 :58am GERD (gastroesophageal reflux disease) acute August 15, 2024 9 :58am Screening for colon cancer acute August 15, 2024 9:58am Family history of colon cancer acute September 19, 2024 8 :25am GERD (gastroesophageal reflux disease) acute September 19, 2024 8 :25am Irregular menses acute October 202024 9:12am Encounter for routine gynecological examination noneactive October 20, 2024 9:12am ASCUS with positive high risk HPV acute November 23, 2024 8:25am Possible exposure to STD acute November 23, 2024 8:25am ASCUS with positive high risk HPV acute December 05, 2024 3:52pm Possible exposure to STD acute December 05, 2024 3:52pm [facility] Work Phone: 1(765) 184-267205-09-2025 History of Present illness Narrative* Maribel Schmidt RT(R) - 07/22/2024 4:20 PM EDT Radiology Service Progress Note PATIENT NAME: Danya Martinez DATE OF SERVICE: July 22, 2024 TIME: 4:22 PM PATIENT IDENTITY VERIFICATION COMPLETED USING TWO (2) IDENTIFIERS: Name and Date of confirmedby patient verbally. FALL SCREENING: Has the patient had 2 falls in the last year or 1 fall with injury or currently using an Ambulatory Assistive Device (Walker, Cane, Wheelchair, Crutches, etc.)? No PATIENT GENDER DATA: Assigned female at . status: : No status:NO. PATIENT RELEVANT IMPLANT DATA REVIEWED: Yes PATIENT PRESENTS WITH AN IMPLANTABLE OR ATTACHED VICE PRESIDENT FOR PHILANTHROPY: No RADIOLOGY DEPARTMENT: General X-ray: Exam(s) Completed: Chest X-Ray PERIPHERAL IV DATA: Not applicable SIGNED BY: SAM Brunson) July 22, 2024 4:22 PM [facility]25 NoteHNO ID: [id number] Author: MARIBEL SCHMIDT RT(R) Service: ? Author Type: Soaker Type: Progress Notes Filed: 07/22/2024 16:28 Note Text: Radiology Service Progress Note PATIENT NAME: Danya Martinez DATE OF SERVICE: July 22, 2024 TIME: 4:22 PM PATIENT IDENTITY VERIFICATION COMPLETED USING TWO (2) IDENTIFIERS: Name and Date of confirmed by patient verbally. FALL SCREENING: Has the patient had 2 falls in the last year or 1 fall with injury or currently using an Ambulatory Assistive Device (Walker, Cane, Wheelchair, Crutches, etc.)? No PATIENT GENDER DATA: Assigned female at . status: : No status: NO. PATIENT RELEVANT IMPLANT DATA REVIEWED: Yes PATIENT PRESENTS WITH AN IMPLANTABLE OR ATTACHED VICE PRESIDENT FOR PHILANTHROPY: No RADIOLOGY DEPARTMENT: General X-ray: Exam(s) Completed: Chest X-Ray PERIPHERAL IV DATA: Not applicable SIGNED BY: Maribel Schmidt, (R) July 22, 2024 4:22 [facility]05-09-2025 NoteHNO ID: [id number] Author: SYDNI GATES APRN.[employer] Service: ? Author Type: Nurse Practitioner Type: Progress Notes Filed: 07/22/2024 16:51 Note Text: ERIK Martinez is a 49 year old female. Patient presents with: Cough: Chest congestion, wheezing x5 days Patient came in with complaints of 5 days worth of chest congestion and wheezing. Patient does have a cough. Patient says she is more short of breath when she is climbing stairs. Denies any other symptoms like sore throat or ear pain. The history is provided by the patient. No multi disciplined language analyst was used. Cough Associated symptoms include shortness of breath. Review of Systems Constitutional: Negative. HENT: Positive for congestion. Respiratory: Positive for cough and shortness of breath. Objective BP 119/79 Pulse 68 Temp 36.7 ?C (98.1 ?F) Resp 20 Wt 135.2 kg (298 lb 1 oz) SpO2 97% Physical Exam Constitutional: Appearance: Normal appearance. HENT: Right Ear: Tympanic membrane, ear canal and external ear normal. Left Ear: Tympanic membrane, ear canal and external ear normal. Nose: Nose normal. Mouth/Throat: Mouth: Mucous membranes are moist. Pharynx: Oropharynx is clear. Eyes: Pupils: Pupils are equal, round, and reactive to light. Cardiovascular: Rate and Rhythm: Normal rate and regular rhythm. Heart sounds: Normal heart sounds. Pulmonary: Effort: Pulmonary effort is normal. Breath sounds: Normal breath sounds. Neurological: Mental Status: She is alert. No past medical history on file. No past surgical history on file. ALLERGIES Penicillins MEDICATIONS montelukast (SINGULAIR) 10 mg tablet omeprazole (PRILOSEC) 20 mg capsule fluticasone (FLONASE) 50 mcg/actuation nasal spray Use 1 [place] in each nostril once daily. sertraline (ZOLOFT) 100 mg tablet Take 1 tablet by mouth once daily. fluticasone (FLONASE) 50 mcg/actuation nasal spray Use 2 Sprays in each nostril once daily. Rinse mouth after use. (Patient not taking: Reported on 01/28/2024) busPIRone (BUSPAR) 7.5 mg tablet Take 1 tablet by mouth twice daily. (Patient not taking: Reported on 05/07/2022) naproxen (NAPROSYN) 500 mg tablet Take 1 tablet by mouth twice daily as needed (pain/inflammation, take with food.). (Patient not taking: Reported on 07/09/2021) No family history on file. Social History Tobacco Use Smoking status: Never Smokeless tobacco: Never {ASSESSMENT/PLAN: 1. Acute cough - ICD9: 786.2, ICD10: R05.1 (primary diagnosis) - XR CHEST 2V FRONTAL/LAT * * * * Physician Interpretation * * * * EXAMINATION: CHEST RADIOGRAPH (2 VIEW FRONTAL AND LATERAL) CLINICAL HISTORY: Acute cough MQ: XC2_6 EXAM DATE/TIME: 07/22/2024 4:29 PM COMPARISON: No relevant prior studies available. RESULT: Lines, tubes, and devices: None. Lungs and pleura: Limited inspiratory effort. Question some patchy density in the LEFT infrahilar region. This could represent infiltrate Cardiomediastinal silhouette: Normal cardiomediastinal silhouette. Bones and soft tissues: Unremarkable. IMPRESSION IMPRESSION: Question of a small amount infiltrate in the LEFT infrahilar region Butcher'S Assistant: JORGE Transcribe Date/Time: Jul 22 2024 4:40P Dictated by : NATASHA YIN DO - PREDNISONE 10 MG TABLET 2. Bacterial pneumonia - ICD9: 482.9, ICD10: J15.9 - DOXYCYCLINE HYCLATE 100 MG TABLET Patient agreeable to care plan. Sydni Gates APRN.[employer] RANGER [facility] History of Present illness Narrative* Sydni Gates APRN.[employer] RANGER - 07/22/2024 4:19 PM EDT ERIK Martinez is a 49 year old female. Patient presents with: Cough: Chest congestion, wheezing x5 days Patient came in with complaints of 5 days worth of chest congestion and wheezing. Patient does havea cough. Patient says she is more short of breath when she is climbing stairs. Denies any other symptoms like sore throat or ear pain. The history is provided by the patient. No multi disciplined language analyst was used. Cough Associated symptoms include shortness of breath. Review of Systems Constitutional: Negative. HENT: Positive for congestion. Respiratory: Positive for cough and shortness of breath. Objective BP 119/79 Pulse 68 Temp 36.7 C (98.1 F) Resp 20 Wt 135.2 kg (298 lb 1 oz) SpO2 97% Physical Exam Constitutional: Appearance: Normal appearance. HENT: Right Ear: Tympanic membrane, ear canal and external ear normal. Left Ear: Tympanic membrane, ear canal and external ear normal. Nose: Nose normal. Mouth/Throat: Mouth: Mucous membranes are moist. Pharynx: Oropharynx is clear. Eyes: Pupils: Pupils are equal, round, and reactive to light. Cardiovascular: Rate and Rhythm: Normal rate and regular rhythm. Heart sounds: Normal heart sounds. Pulmonary: Effort: Pulmonary effort is normal. Breath sounds: Normal breath sounds. Neurological: Mental Status: She is alert. No past medical history on file. No past surgical history on file. ALLERGIES Penicillins MEDICATIONS montelukast (SINGULAIR) 10 mg tablet omeprazole (PRILOSEC) 20 mg capsule fluticasone (FLONASE) 50 mcg/actuation nasal spray Use 1 [place] in each nostril once daily. sertraline (ZOLOFT) 100 mg tablet Take 1 tablet by mouth once daily. fluticasone (FLONASE) 50 mcg/actuation nasal spray Use 2 Sprays in each nostril once daily. Rinse mouth after use. (Patient not taking: Reported on 01/28/2024) busPIRone (BUSPAR) 7.5 mg tablet Take 1 tablet by mouth twice daily. (Patient not taking: Reported on 05/07/2022) naproxen (NAPROSYN) 500 mg tablet Take 1 tablet by mouth twice daily as needed (pain/inflammation, take with food.). (Patient not taking: Reported on 07/09/2021) No family history on file. Social History Tobacco Use Smoking status: Never Smokeless tobacco: Never {ASSESSMENT/PLAN: 1. Acute cough - ICD9: 786.2, ICD10: R05.1 (primary diagnosis) - XR CHEST 2V FRONTAL/LAT * * * * Physician Interpretation * * * * EXAMINATION: CHEST RADIOGRAPH (2 VIEW FRONTAL & LATERAL) CLINICAL HISTORY: Acute cough MQ: XC2_6 EXAM DATE/TIME: 07/22/2024 4:29 PM COMPARISON: No relevant prior studies available. RESULT: Lines, tubes, and devices: None. Lungs and pleura: Limited inspiratory effort. Question some patchy density in the LEFT infrahilar region. This could represent infiltrate Cardiomediastinal silhouette: Normal cardiomediastinal silhouette. Bones and soft tissues: Unremarkable. IMPRESSION IMPRESSION: Question of a small amount infiltrate in the LEFT infrahilar region Butcher'S Assistant: JORGE Transcribe Date/Time: Jul 22 2024 4:40P Dictated by : NATASHA YIN DO - PREDNISONE 10 MG TABLET 2. Bacterial pneumonia - ICD9: 482.9, ICD10: J15.9 - DOXYCYCLINE HYCLATE 100 MG TABLET Patient agreeable to care plan. Sydni Gates APRN.[employer] RANGER [facility] Procedures [facility]11[facility] History of Present illness Narrative* Carrie Lobato RT(R) - 01/28/2024 3:20 PM EST Radiology Service Progress Note PATIENT NAME: Danya Martinez DATE OF SERVICE: January 28, 2024 TIME: 3:19 PM PATIENT IDENTITY VERIFICATION COMPLETED USING TWO (2) IDENTIFIERS: Name and Date of confirmedby patient verbally. FALL SCREENING: Has the patient had 2 falls in the last year or 1 fall with injury or currently using an Ambulatory Assistive Device (Walker, Cane, Wheelchair, Crutches, etc.)? No PATIENT GENDER DATA: Female. status: : No status: NO. PATIENT RELEVANT IMPLANT DATA REVIEWED: Not Applicable PATIENT PRESENTS WITH AN IMPLANTABLE OR ATTACHED VICE PRESIDENT FOR PHILANTHROPY: No RADIOLOGY DEPARTMENT: General X-ray: Exam(s) Completed: Lower Extremity X- Ray(s): Foot, Right PERIPHERAL IV DATA: Not applicable SIGNED BY: RT Risa(Andres) January 28, 2024 3:19 PM documented in this encounterK[facility]11-14-2024 NoteHNO ID: [id number] Author: CARRIE LOBATO RT(R) Service: Radiology Author Type: Technologist Type: Progress Notes Filed: 01/28/2024 15:26 Note Text: Radiology Service Progress Note PATIENT NAME: Danya Martinez DATE OF SERVICE: January 28, 2024 TIME: 3:19 PM PATIENT IDENTITY VERIFICATION COMPLETED USING TWO (2) IDENTIFIERS: Name and Date of confirmed by patient verbally. FALL SCREENING: Has the patient had 2 falls in the last year or 1 fall with injury or currently using an Ambulatory Assistive Device (Walker, Cane, Wheelchair, Crutches, etc.)? No PATIENT GENDER DATA: Female. status: : No status: NO. PATIENT RELEVANT IMPLANT DATA REVIEWED: Not Applicable PATIENT PRESENTS WITH AN IMPLANTABLE OR ATTACHED VICE PRESIDENT FOR PHILANTHROPY: No RADIOLOGY DEPARTMENT: General X-ray: Exam(s) Completed: Lower Extremity X-Ray(s): Foot, Right PERIPHERAL IV DATA: Not applicable SIGNED BY: RT Risa(Andres) January 28, 2024 3:19 [facility]11-14-2024 NoteHNO ID: [id number] Author: MARLENI IRIZARRY APRN.[employer]ER Service: ? Author Type: Nurse Practitioner Type: Progress Notes Filed: 01/28/2024 15:23 Note Text: Patient represents with complaints of right foot pain. She was seen earlier today, after a mechanical fall down the stairs States earlier she didn't really feel the pain in right foot. Right foot with swelling noted to dorsal aspect and top of foot. No ecchymosis No deformity DP + 2 B/L No Tibial plateau TTP No erythema No obvious deformityOhio[facility]11-14-2024 NoteHNO ID: [id number] Author: MARLENI IRIZARRY APRN.[employer] RANGER Service: ? Author Type: Nurse Practitioner Type: Progress Notes Filed: 01/28/2024 10:08 Note Text: This note was created using [email or web address]. Subjective Danya Martinez is a 48 year old female. 48 year old female with no PMH presents for knee laceration. 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 +laceration left knee Denies head injury Denies LOC Denies neck or back pain Denies abdominal pain Denies N/V/D Denies blood thinners The history is provided by the patient. No multi disciplined language analyst was used. Laceration The incident occurred less than 1 hour ago. Pain location: left knee. The laceration is 3 cm in size. The laceration mechanism was a blunt object. The pain is at a severity of 3/10. The pain is mild. The pain has been Constant since onset. She reports no foreign bodies present. Her tetanus status is UTD (2017). No past medical history on file. No past surgical history on file. ALLERGIES Penicillins MEDICATIONS montelukast (SINGULAIR) 10 mg tablet omeprazole (PRILOSEC) 20 mg capsule fluticasone (FLONASE) 50 mcg/actuation nasal spray Use 1 [place] in each nostril once daily. sertraline (ZOLOFT) 100 mg tablet Take 1 tablet by mouth once daily. doxycycline monohydrate 100 mg tablet Take 1 tablet by mouth two times a day for 7 days. fluticasone (FLONASE) 50 mcg/actuation nasal spray Use 2 Sprays in each nostril once daily. Rinse mouth after use. (Patient not taking: Reported on 01/28/2024) busPIRone (BUSPAR) 7.5 mg tablet Take 1 tablet by mouth twice daily. (Patient not taking: Reported on 05/07/2022) naproxen (NAPROSYN) 500 mg tablet Take 1 tablet by mouth twice daily as needed (pain/inflammation, take with food.). (Patient not taking: Reported on 07/09/2021) No family history on file. Social History Tobacco Use Smoking status: Never Smokeless tobacco: Never Review of Systems Constitutional: Negative for chills, diaphoresis, fatigue and fever. Eyes: Negative for photophobia, pain, discharge, redness, itching and visual disturbance. Respiratory: Negative for apnea and cough. Cardiovascular: Negative for chest pain, palpitations and leg swelling. Gastrointestinal: Negative for abdominal pain. Skin: Positive for wound. Allergic/Immunologic: Negative for environmental allergies, food allergies and immunocompromised state. Neurological: Negative for dizziness, seizures, facial asymmetry, light-headedness, numbness and headaches. Hematological: Does not bruise/bleed easily. Psychiatric/Behavioral: Negative for agitation and confusion. Objective BP 126/91 Pulse 86 Temp 36.8 ?C (98.3 ?F) Resp 18 Wt (!) 136.6 kg (301 lb 2.4 oz) SpO2 97% Physical Exam Vitals and nursing note reviewed. Constitutional: General: She is not in acute distress. Appearance: Normal appearance. She is normal weight. She is not ill-appearing, toxic-appearing or diaphoretic. HENT: Head: Normocephalic and atraumatic. Right Ear: Ear canal and external ear normal. Left Ear: Ear canal and external ear normal. Nose: Nose normal. No congestion or rhinorrhea. Mouth/Throat: Mouth: Mucous membranes are moist. Pharynx: No oropharyngeal exudate or posterior oropharyngeal erythema. Eyes: General: Right eye: No discharge. Left eye: No discharge. Extraocular Movements: Extraocular movements intact. Conjunctiva/sclera: Conjunctivae normal. Pupils: Pupils are equal, round, and reactive to light. Cardiovascular: Rate and Rhythm: Normal rate and regular rhythm. Pulses: Normal pulses. Heart sounds: Normal heart sounds. No murmur heard. No friction rub. Pulmonary: Effort: Pulmonary effort is normal. No respiratory distress. Breath sounds: Normal breath sounds. No stridor. No wheezing, rhonchi or rales. Chest: Chest wall: No tenderness. Abdominal: General: Abdomen is flat. There is no distension. Palpations: Abdomen is soft. There is no mass. Tenderness: There is no abdominal tenderness. There is no right CVA tenderness, left CVA tenderness, guarding or rebound. Hernia: No hernia is present. Musculoskeletal: General: Tenderness present. No swelling, deformity or signs of injury. Normal range of motion. Cervical back: Normal range of motion and neck supple. No rigidity. Right lower leg: No edema. Left lower leg: No edema. Lymphadenopathy: Cervical: No cervical adenopathy. Skin: Capillary Refill: Capillary refill takes less than 2 seconds. Coloration: Skin is not jaundiced or pale. Findings: No bruising, erythema, lesion or rash. Comments: Just below left knee is irregular wound with skin tear No active bleeding No drainage No red streaking. No FB Full active and passive ROM Neurological: General: No focal deficit present. Mental Status: She is alert and oriented to person, place, and time. Cranial Nerves: No cranial nerve deficit. Sensory: No sen (more content not included)...[facility] 01-28-[facility] History of Present illness Narrative* Marleni Irizarry APRN.[employer]ER - 01/28/2024 9:50 AM EST This note was created using [employer]. Subjective Danya Martinez is a 48 year old female. 48 year old female with no PMH presents for knee laceration. 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 +laceration left knee Denies head injury Denies LOC Denies neck or back pain Denies abdominal pain Denies N/V/D Denies blood thinners The history is provided by the patient. No multi disciplined language analyst was used. Laceration The incident occurred less than 1 hour ago. Pain location: left knee. The laceration is 3 cm in size. The laceration mechanism was a blunt object. The pain is at a severity of 3/10. The pain is mild.The pain has been Constant since onset. She reports no foreign bodies present. Her tetanus status is UTD (2017). No past medical history on file. No past surgical history on file. ALLERGIES Penicillins MEDICATIONS montelukast (SINGULAIR) 10 mg tablet omeprazole (PRILOSEC) 20 mg capsule fluticasone (FLONASE) 50 mcg/actuation nasal spray Use 1 [place] in each nostril once daily. sertraline (ZOLOFT) 100 mg tablet Take 1 tablet by mouth once daily. doxycycline monohydrate 100 mg tablet Take 1 tablet by mouth two times a day for 7 days. fluticasone (FLONASE) 50 mcg/actuation nasal spray Use 2 Sprays in each nostril once daily. Rinse mouth after use. (Patient not taking: Reported on 01/28/2024) busPIRone (BUSPAR) 7.5 mg tablet Take 1 tablet by mouth twice daily. (Patient not taking: Reported on 05/07/2022) naproxen (NAPROSYN) 500 mg tablet Take 1 tablet by mouth twice daily as needed (pain/inflammation, take with food.). (Patient not taking: Reported on 07/09/2021) No family history on file. Social History Tobacco Use Smoking status: Never Smokeless tobacco: Never Review of Systems Constitutional: Negative for chills, diaphoresis, fatigue and fever. Eyes: Negative for photophobia, pain, discharge, redness, itching and visual disturbance. Respiratory: Negative for apnea and cough. Cardiovascular: Negative for chest pain, palpitations and leg swelling. Gastrointestinal: Negative for abdominal pain. Skin: Positive for wound. Allergic/Immunologic: Negative for environmental allergies, food allergies and immunocompromised state. Neurological: Negative for dizziness, seizures, facial asymmetry, light- headedness, numbness and headaches. Hematological: Does not bruise/bleed easily. Psychiatric/Behavioral: Negative for agitation and confusion. Objective BP 126/91 Pulse 86 Temp 36.8 C (98.3 F) Resp 18 Wt (!) 136.6 kg (301 lb 2.4 oz) SpO2 97% Physical Exam Vitals and nursing note reviewed. Constitutional: General: She is not in acute distress. Appearance: Normal appearance. She is normal weight. She is not ill-appearing, toxic-appearing or diaphoretic. HENT: Head: Normocephalic and atraumatic. Right Ear: Ear canal and external ear normal. Left Ear: Ear canal and external ear normal. Nose: Nose normal. No congestion or rhinorrhea. Mouth/Throat: Mouth: Mucous membranes are moist. Pharynx: No oropharyngeal exudate or posterior oropharyngeal erythema. Eyes: General: Right eye: No discharge. Left eye: No discharge. Extraocular Movements: Extraocular movements intact. Conjunctiva/sclera: Conjunctivae normal. Pupils: Pupils are equal, round, and reactive to light. Cardiovascular: Rate and Rhythm: Normal rate and regular rhythm. Pulses: Normal pulses. Heart sounds: Normal heart sounds. No murmur heard. No friction rub. Pulmonary: Effort: Pulmonary effort is normal. No respiratory distress. Breath sounds: Normal breath sounds. No stridor. No wheezing, rhonchi or rales. Chest: Chest wall: No tenderness. Abdominal: General: Abdomen is flat. There is no distension. Palpations: Abdomen is soft. There is no mass. Tenderness: There is no abdominal tenderness. There is no right CVA tenderness, left CVA tenderness, guarding or rebound. Hernia: No hernia is present. Musculoskeletal: General: Tenderness present. No swelling, deformity or signs of injury. Normal range of motion. Cervical back: Normal range of motion and neck supple. No rigidity. Right lower leg: No edema. Left lower leg: No edema. Lymphadenopathy: Cervical: No cervical adenopathy. Skin: Capillary Refill: Capillary refill takes less than 2 seconds. Coloration: Skin is not jaundiced or pale. Findings: No bruising, erythema, lesion or rash. Comments: Just below left knee is irregular wound with skin tear No active bleeding No drainage No red streaking. No FB Full active and passive ROM Neurological: General: No focal deficit present. Mental Status: She is alert and oriented to person, place, and time. Cranial Nerves: No cranial nerve deficit. Sensory: No sensory deficit. Motor: No weakness. Coordination: Coordination normal. Gait: Gait normal. Psychiatric: Mood and Affect: Mood normal. Behavior: Behavior normal. Thought Content: Thought content normal. Judgment: Judgment normal. Assessment and Plan ASSESSMENT/PLAN: 1. Open wound of left lower leg, initial encounter - ICD9: 891.0, ICD10: S81.802A (primary diagnosis) Skin tear in nature Wound cleansed with hibiclens Steri strips applied 2. Fall down stairs, initial encounter - ICD9: E880.9, ICD10: W10.8XXA Mechanical No red flags Not related to syncope No LOC or neck pain documented in this [facility]12-[facility] Miscellaneous Notes* Telephone Encounter - Odalys Chan MA - 02/22/2023 1:47 PM EST Pt called and was given results. Pt verbalized understanding. Odalys Chan MA * Telephone Encounter - Odalys Chan MA - 02/22/2023 1:44 PM EST ----- Message from Ofelia Medina APRN.CNP sent at 02/22/2023 8:05 AM EST ----- Please advise Danya the COVID and flu test was negative. documented in this encounterK[facility]12-10-2023 Miscellaneous Notes* Telephone Encounter - Odalys Chan MA - 02/22/2023 1:44 PM EST Pt called and results were given, pt verbalized understanding. Odalys Chan MA * Telephone Encounter - Odalys Chan MA - 02/22/2023 1:43 PM EST ----- Message from Ofelia Medina APRN.[employer] sent at 02/22/2023 8:05 AM EST ----- Please advise Danya the COVID and flu test was negative. documented in this encounterK[facility]12-09-2023 Instructions* Patient Instructions* Maximino Ulrich APRN.CNP - 02/21/2023 9:23 AM EST How to Manage Common Symptoms Associated with COVID for Adults Fever- Fever is a temperature over 100.4 F and can occur when the body is fighting an infection. Tohelp treat a fever: Drink plenty of fluids and stay well hydrated. Eat small amounts of easy to digest food. Rest. Your body needs rest to recover, but getting up and moving around the house frequently is a good idea. You should try to continue doing your normal daily activities (bathing, toileting, grooming, cooking), though you will probably feel tired, and need to rest often. Avoid any heavy activity or exercise, as this will increase your body temperature. Dress in light clothing and stay covered in a light sheet. Keep the room temperature cool. Take a slightly warm (not cold or cool) bath, or apply damp washcloths to the forehead and wrists. Cough- Cough is a common symptom associated with COVID and can be bothersome. To help treat a cough: Stay well hydrated. Try warm water or tea with lemon and/or honey to help soothe the cough. Use a humidifier to add moisture to the air. Try a product with menthol, like a cough drop or a rub for your chest such as Vicks, which can helpreduce cough. Try cough drops. Avoid smoking and other strong odors or perfumes. Try breathing exercises to keep your lungs open and clear. Take a big deep breath through your noseand hold for 5 seconds before slowly releasing. Repeat frequently, while you are awake. Congestion- Runny nose or nasal congestion can occur with COVID. Treatment can help relieve symptoms: Try OTC nasal saline spray, or nasal saline rinse to relieve mucus congestion. Nasal strips can help keep nasal passages open, to increase airflow. Elevating your head with an extra pillow in bed can help reduce congestion. Using a humidifier can increase moisture in the air, and make breathing easier. Sore Throat- Another common symptom with COVID, can be managed at home by: Stay well hydrated. Gargle with salt water - mix teaspoon salt with 1 cup of warm water and gargle. This helps to loosen mucus in the back of the throat and may reduce discomfort. Try ice chips, popsicles or lozenges to soothe the throat. Nausea/Vomiting/Diarrhea- These are common symptoms, and staying hydrated is most important. If you are nauseous or vomiting, start with small sips of water every 10-15 minutes and increase astolerated. You can try sucking an ice cube too. If tolerating, you can try pedialyte or Gatorade, or flat sprite or leatha-radu. Start slowly and increase as you are able to. Instead of meals, try smaller, more frequent snacks. Try eating bland foods like crackers, toast, rice, and applesauce. Avoid spicy, greasy or fried foods and dairy containing foods. Even if you aren't feeling hungry due to lack of smell or taste, it is important to try to take in some food when you are able. After drinking and eating, rest in an upright position for up to two hours as needed to help decrease nauseous feelings. Try closing your eyes, avoid moving and watching TV. Avoid strong odors that can make you feel more nauseated. When to seek emergency medical attention Look for emergency warning signs for COVID-19. If having any of these symptoms, seek emergency medical care immediately: Trouble breathing Persistent pain or pressure in the chest New confusion Inability to wake or stay awake Bluish lips or face *This list is not all possible symptoms. Please call your medical provider for any other symptoms that are severe or concerning to you. documented [facility] History of Present illness Narrative* Maximino Ulrich APRN.CNP - 02/21/2023 9:12 AM EST Subjective HPI Nontoxic-appearing female presents to urgent care with chief complaint of upper respiratory tract like infection. Duration of symptoms 2 days. Associated symptoms sore throat, nasal congestion, nasaldischarge and fatigue. Most appropriate symptom today is fatigue. Patient denies the use of any over -the-counter medications or home remedies for symptom management. Patient states recent sick contacts with similar signs and symptoms. Patient denies any productive cough, fever, chest pain, shortness of breath, pleuritic pain, rash, abdominal pain, nausea, vomiting or change in bowel or bladder habit. Past medical history prescription medications allergies reviewed. BP 118/90 Pulse 78 Temp 36.5 C (97.7 F) Resp 16 Wt 132 kg (291 lb) SpO2 97% .Patient presents with: Nasal Congestion: X 2 days History reviewed. No pertinent past medical history. History reviewed. No pertinent surgical history. ALLERGIES Penicillins MEDICATIONS montelukast (SINGULAIR) 10 mg tablet omeprazole (PRILOSEC) 20 mg capsule fluticasone (FLONASE) 50 mcg/actuation nasal spray Use 2 Sprays in each nostril once daily. Rinse mouth after use. fluticasone (FLONASE) 50 mcg/actuation nasal spray Use 1 [place] in each nostril once daily. sertraline (ZOLOFT) 100 mg tablet Take 1 tablet by mouth once daily. busPIRone (BUSPAR) 7.5 mg tablet Take 1 tablet by mouth twice daily. (Patient not taking: Reported on 05/07/2022) naproxen (NAPROSYN) 500 mg tablet Take 1 tablet by mouth twice daily as needed (pain/inflammation, take with food.). (Patient not taking: Reported on 07/09/2021) History reviewed. No pertinent family history. Social History Tobacco Use Smoking status: Never Smokeless tobacco: Never Review of Systems Constitutional: Positive for chills and malaise/fatigue. Negative for fever. HENT: Positive for congestion and sore throat. Negative for ear discharge, ear pain and sinus pain. Eyes: Negative for blurred vision, pain, discharge and redness. Respiratory: Negative for cough, hemoptysis, sputum production, shortness of breath, wheezing and stridor. Cardiovascular: Negative for chest pain. Gastrointestinal: Negative for abdominal pain, diarrhea, nausea and vomiting. Musculoskeletal: Positive for myalgias. Skin: Negative for itching and rash. Neurological: Negative for dizziness and headaches. Objective Physical Exam Constitutional: General: She is not in acute distress. Appearance: She is not diaphoretic. HENT: Head: Normocephalic. Jaw: No trismus, tenderness, swelling or pain on movement. Right Ear: Tympanic membrane, ear canal and external ear normal. Left Ear: Tympanic membrane, ear canal and external ear normal. Nose: Rhinorrhea present. Mouth/Throat: Mouth: Mucous membranes are moist. Pharynx: Oropharynx is clear. Uvula midline. No pharyngeal swelling, oropharyngeal exudate, posterior oropharyngeal erythema or uvula swelling. Eyes: Conjunctiva/sclera: Conjunctivae normal. Pupils: Pupils are equal, round, and reactive to light. Cardiovascular: Rate and Rhythm: Normal rate and regular rhythm. Heart sounds: Normal heart sounds. Pulmonary: Effort: Pulmonary effort is normal. No tachypnea, accessory muscle usage or respiratory distress. Breath sounds: Normal breath sounds. No stridor. No wheezing, rhonchi or rales. Abdominal: General: There is no distension. Palpations: Abdomen is soft. Tenderness: There is no abdominal tenderness. There is no guarding or rebound. Musculoskeletal: Cervical back: Normal range of motion and neck supple. No edema, erythema, rigidity or tenderness. No pain with movement. Normal range of motion. Lymphadenopathy: Cervical: Cervical adenopathy present. Skin: General: Skin is warm and dry. Neurological: Mental Status: She is alert and oriented to person, place, and time. ASSESSMENT/PLAN: 1. Viral illness - ICD9: 079.99, ICD10: B34.9 - Discussed viral etiology and rationale for treatment. - Symptomatic treatment with prn analgesia - Supportive care with fluids and rest - COVID & INFLUENZA A/B NAAT, ROUTINE Patient will follow up with primary care provider as needed. Patient was instructed to immediately proceed to emergency room for any new, worsening, or symptoms lasting longer than anticipated. The patient's clinical presentation is otherwise unremarkable at this time. Based on exam and clinical finding, the patient is stable for discharge. Plan of care was discussed with patient. Patient verbalizes understanding and agrees to plan of care. This note was generated using [employer]anta[employer] software. It may contain errors in wording, punctuation, or spelling. Maximino Ulrich APRN.SOURAV documented in this encounterK[facility]02-22-[facility] History of Present illness Narrative* Maximino Ulrich APRN.SOURAV - 05/07/2022 4:42 PM EST Images from the original note were not included. Subjective HPI Nontoxic-appearing female presents urgent care chief complaint Bug bites. Duration of symptoms 2 days. Associated symptoms welts and itching. Patient states she believes she has been bit by bedbugs. Has used hydrocortisone cream and Benadryl this is helped slightly. Denies any other concerns. No recent medication changes lifestyle changes or recent antibiotic use. Denies any other symptoms. Denies chance of . Is not breast-feeding. Denies any fever body aches chills productive cough chest pain shortness of breath pleuritic pain hemoptysis nausea vomiting abdominal pain change in bowel or bladder habits. Past medical history prescription medication use and allergies reviewed. .Patient presents with: welts on arms and trunk: Bit by bed bugs 2 days ago History reviewed. No pertinent past medical history. History reviewed. No pertinent surgical history. ALLERGIES Penicillins MEDICATIONS fluticasone (FLONASE) 50 mcg/actuation nasal spray Use 2 Sprays in each nostril once daily. Rinse mouth after use. fluticasone (FLONASE) 50 mcg/actuation nasal spray Use 1 [place] in each nostril once daily. sertraline (ZOLOFT) 100 mg tablet Take 1 tablet by mouth once daily. busPIRone (BUSPAR) 7.5 mg tablet Take 1 tablet by mouth twice daily. (Patient not taking: Reported on 05/07/2022) naproxen (NAPROSYN) 500 mg tablet Take 1 tablet by mouth twice daily as needed (pain/inflammation, take with food.). (Patient not taking: Reported on 07/09/2021 ) History reviewed. No pertinent family history. Social History Tobacco Use Smoking status: Never Smokeless tobacco: Never BP 122/80 Pulse 61 Temp 36.8 C (98.2 F) (Tympanic) Resp 16 Wt 130.5 kg (287 lb 12.8 oz) SpO2 99% Review of Systems Constitutional: Negative for chills, fever and malaise/fatigue. HENT: Negative for congestion, ear discharge, ear pain, sinus pain and sore throat. Eyes: Negative for blurred vision, pain, discharge and redness. Respiratory: Negative for cough, hemoptysis, sputum production, shortness of breath, wheezing and stridor. Cardiovascular: Negative for chest pain. Gastrointestinal: Negative for abdominal pain, diarrhea, nausea and vomiting. Musculoskeletal: Negative for myalgias. Skin: Positive for itching. Negative for rash. Neurological: Negative for dizziness and headaches. Objective Physical Exam Constitutional: General: She is not in acute distress. Appearance: She is not diaphoretic. HENT: Head: Normocephalic. Mouth/Throat: Mouth: Mucous membranes are moist. Pharynx: Oropharynx is clear. No oropharyngeal exudate or posterior oropharyngeal erythema. Eyes: Conjunctiva/sclera: Conjunctivae normal. Pupils: Pupils are equal, round, and reactive to light. Cardiovascular: Rate and Rhythm: Normal rate and regular rhythm. Heart sounds: Normal heart sounds. Pulmonary: Effort: Pulmonary effort is normal. No tachypnea, accessory muscle usage or respiratory distress. Breath sounds: Normal breath sounds. No stridor. No wheezing or rales. Musculoskeletal: Cervical back: Normal range of motion and neck supple. No rigidity or tenderness. Lymphadenopathy: Cervical: No cervical adenopathy. Skin: General: Skin is warm and dry. Comments: Areas representing insect bite noted highlighted areas. Area is erythematous. No remote redness. No fluctuance. No drainage. No evidence of bacterial infection. Rash is blanching. Neurological: Mental Status: She is alert and oriented to person, place, and time. ASSESSMENT/PLAN: 1. Insect bite, unspecified site, initial encounter - ICD9: 919.4, E906.4, ICD10: W57.XXXA Diagnosed with insect bites. Placed on antihistamines and steroid cream. Will not use steroid creamon areas of thin skin or with occlusive dressings. Red flags reevaluation discussed. Patient was educated on supportive therapies. Patient will follow up with primary care provider as needed. Patientwas instructed to immediately proceed to emergency room for any new, worsening, or symptoms lastinglonger than anticipated. The patient's clinical presentation is otherwise unremarkable at this time. Based on exam and clinical finding, the patient is stable for discharge. Plan of care was discussed with patient. Patient verbalizes understanding and agrees to plan of care. This note was generatedusing QuantaLife software. It may contain errors in wording, punctuation, or spelling. Maximino Ulrich APRN.SOURAV documented in this encounterK[facility]04-27-2022 Miscellaneous Notes* Telephone Encounter - Zoya Escobedo - 07/10/2021 11:34 AM EDT Patient given results and verbalized understanding of instructions given. Zoya Escobedo * Telephone Encounter - Harjeet Samuels APRN.CNP - 07/10/2021 7:44 AM EDT Please notify that covid testing negative. Continue with plan of care as discussed during visit. documented in this encounterK[facility]04-26-2022 History of Present illness Narrative* Harjeet King, KAREN.ARMY RANGER - 07/09/2021 6:26 PM EDT Subjective HPI HPI Danya Martinez is a 46 year old female who presents today for CC of cough, congestion, scratchy throat, PND. This started 2 days ago. Has tried otc medication for relief. Symptoms are worsened by nothing. Risk factors hx of allergies. Nonsmoker. 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 .Patient presents with: Cough: some post nasal drip, scratchy throat and swollen glands x 2 days No past medical history on file. No past surgical history on file. ALLERGIES Penicillins MEDICATIONS busPIRone (BUSPAR) 7.5 mg tablet Take 1 tablet by mouth twice daily. fluticasone (FLONASE) 50 mcg/actuation nasal spray Use 1 [place] in each nostril once daily. sertraline (ZOLOFT) 100 mg tablet Take 1 tablet by mouth once daily. fluticasone (FLONASE) 50 mcg/actuation nasal spray Use 2 Sprays in each nostril once daily. Rinse mouth after use. naproxen (NAPROSYN) 500 mg tablet Take 1 tablet by mouth twice daily as needed (pain/inflammation, take with food.). No family history on file. Social History Tobacco Use Smoking status: Never Smoker Smokeless tobacco: Never Used Substance Use Topics Alcohol use: Not on file Drug use: Not on file Review of Systems Constitutional: Negative for fever. HENT: Positive for congestion, ear pain, sinus pain (slight pressure) and sore throat. Negative forear discharge and nosebleeds. Respiratory: Positive for cough. Negative for shortness of breath and wheezing. Cardiovascular: Negative for chest pain. Musculoskeletal: Negative for neck pain. Skin: Negative for itching and rash. Objective Blood pressure 108/70, pulse 68, temperature 36.4 C (97.6 F), resp. rate 16, weight 134.6 kg (296 lb 12.8 oz), SpO2 99 %. Physical Exam Constitutional: General: She is not in acute distress. Appearance: She is not toxic-appearing or diaphoretic. HENT: Head: Normocephalic and atraumatic. Right Ear: Hearing, tympanic membrane, ear canal and external ear normal. Left Ear: Hearing, tympanic membrane, ear canal and external ear normal. Nose: Nose normal. Mouth/Throat: Pharynx: Uvula midline. No pharyngeal swelling, oropharyngeal exudate, posterior oropharyngeal erythema or uvula swelling. Eyes: General: Lids are normal. No scleral icterus. Right eye: No discharge. Left eye: No discharge. Conjunctiva/sclera: Conjunctivae normal. Pupils: Pupils are equal, round, and reactive to light. Neck: Trachea: Trachea normal. Cardiovascular: Rate and Rhythm: Normal rate and regular rhythm. Heart sounds: Normal heart sounds. Pulmonary: Effort: Pulmonary effort is normal. Breath sounds: Normal breath sounds. Musculoskeletal: Cervical back: Normal range of motion and neck supple. Lymphadenopathy: Cervical: No cervical adenopathy. Right cervical: No superficial cervical adenopathy. Left cervical: No superficial cervical adenopathy. Skin: Findings: No rash. Neurological: Mental Status: She is alert and oriented to person, place, and time. ASSESSMENT/PLAN: 1. URI, acute - ICD9: 465.9, ICD10: J06.9 - Discussed viral etiology and rationale for treatment. - Symptomatic treatment with prn analgesia - Supportive care with fluids and rest - Follow up in 3-5 days if symptoms persist or sooner if worsening of symptoms - 2019 CORONAVIRUS - FLUTICASONE PROPIONATE 50 MCG/ACTUATION NASAL SPRAY,SUSPENSION Agrees to plan Harjeet Samuels APRN.SOURAV documented in this encounterK[facility] Centersult note Author Bharat Curry [facility] Note Date/Time September 19, 2024 10:46 am [facility] Medical Records Department [address] [place] [address] Anesthesia Postop Eval I 09/19/24 1045 MR#: [id number] Acct: [id number] Name: DANYA MARTINEZ Maral Rep #:[id number] : 1975 49 From: Bharat Curry PCP: Dr. Mika Coughlin MD Status:RE G ORC Y Race: C Location: [place] [address] Anesthesia: Postop Eval I Current Vital Signs Temperature: 98.2 F Pulse Rate: 62 Blood Pressure: 102/70 Respiratory Rate: 16 Pulse Ox: 98 Oxygen Delivery Method: Room Air Assessment Airway patent: Yes Spontaneous unlabored respirations: Yes Mental status: Asleep nausea: No Vomiting: No Anesthesia Complication: No Fluid Hydration Crystalloid volume administer (ml): 700 Total IV fluid infused: 700 Progress Note Anesthesia document: Postop Eval 1 completed: Yes 09/19/24 1046 <Electronically signed by Bharat Curry > Date _ Bharat Ungerigner Signature: Date CC: ~ Signed [facility] Work Phone: Consult note Author Andrés Coleman [facility] Note Date/Time September 19, 2024 11:34 am [facility] Medical Records Department [address] [place] [id number] Anesthesia Postop Eval II 09/19/24 1124 MR#: [id number] Acct: [id number] Name: DANYA MARTINEZ Maral Rep #:[id number] : 1975 49 From: Andrés Coleman MD PCP: Dr. Mika Coughlin MD Status:[facility] Y Race: C Location: [place] [address] Anesthesia Postop Eval I Sum Postop Eval Completion status Anesthesia document: Postop Eval 1 completed: Yes Anesthesia Postop Eval I Summary Anesthesia Postop Eval I Summary: Anesthesia Postop Eval I: Assessment Summary Airway patent Yes 09/19/24 10:46 [email or web address] Spontaneous unlabored Yes 09/19/24 10:46 [email or web address] respirations Mental status Asleep 09/19/24 10:46 [email or web address] nausea No 09/19/24 10:46 [email or web address] Vomiting No 09/19/24 10:46 [email or web address] Anesthesia Postop Eval I: Fluid Summary Crystalloid volume administer 700 09/19/24 10:46 [email or web address] (ml) Colloids volume administered ( ml) Blood Product volume administered (ml) Total IV fluid infused 700 09/19/24 10:46 [email or web address] Anesthesia Postop Eval I: Summary Notes Anesthesia Complication No 09/19/24 10:46 [email or web address] Anesthesia Complication Comment: Post-operative progress note Anesthesia: Postop Eval II Evaluation Mental status: Awake Pain Level: 0 nausea: No Vomiting: No 09/19/24 1124 <Electronically signed by Andrés Coleman MD > Date _ Andérs Coleman MD Cosigner Signature: Date CC: ~ Signed [facility] Work Phone: [email or web address] noteNo assessment information available [facility] Work Phone: Evaluation note* Diagnosis URI, acute- Primary Acute upper respiratory infections of unspecified site documented [facility]* Diagnosis Insect bite, unspecified site, initial encounter- Primary [facility]* Diagnosis Viral illness- Primary Unspecified viral infection, in conditions classified elsewhere and of unspecified site [facility]* Diagnosis Open wound of left lower leg, initial encounter- Primary Fall down stairs, initial encounter documented [facility] this [facility]* Diagnosis Fall down stairs, initial encounter Foot pain, right Pain in limb documented in this encounter [facility]* Diagnosis Acute cough- Primary Bacterial pneumonia Bacterial pneumonia, unspecified Acute cough [facility]* Diagnosis Acute cough [facility]* Diagnosis Onset Date Resolution Status Admit Date Family history of colon cancer acute August 15, 2024 9:58am [facility] Work Phone: History and physical note Author Vinh Man [facility] Note Date/Time September 19, 2024 9:57a m [facility] Medical Records Department [address] [place] [address] History & Physical Exam 09/19/24 0955 MR#: [id number] Acct: [id number] Name: DANYA MARTINEZ Rep #:[id number] : 1975 49 From: Vinh Man MD PCP: Dr. Mika Coughlin MD Status:[facility] Location: [place] [address] HPI - General General Date of Admission: 09/19/24 Date of Service: 09/19/24 Chief Complaint: Colonoscopy HPI Narrative The patient is a 49-year-old female who is being seen today for EGD and colonoscopy. She does have a family history of colon cancer. Her father and her paternal grandmother both of colon cancer. She herself is never had colon polyps although her sister has had colon polyps. Her last colonoscopy wasin 2017. She denies any new GI issues or complaints. She does also have chronic reflux disease and has been on omeprazole for about a year. She has never had an EGD as a baseline. [facility] Medical History Wears contact lenses Colonoscopy planned Gastric reflux Screening for colon cancer Family history of colon cancer IGT (impaired glucose tolerance) Morbid obesity Allergic rhinitis Anxiety Home Medications ?Medication ?Instructions ?Recorded ?Last Taken ?Type fluticasone propionate 50 50 mcg intranasal QDAY PRN 0 03/20/17 Unknown History mcg/actuation nasal allergies spray,suspension (Flonase Allergy Relief) sertraline 100 mg tablet (Zoloft) 100 mg PO QDAY 03/2009/18/24 History multivitamin 1 tab PO DAILY 03/12/23 Unkn own History omeprazole 40 mg capsule,delayed 40 mg PO DAILY 09/18/24 History release cetirizine 10 mg tablet (24Hour 10 mg PO DAILY 5 Unknown History Allergy) montelukast 10 mg tablet 10 mg PO DAILY 09/14/24 Unkn own History Allergy/AdvReac Type Severity Reaction Status Date / Time Penicillins Allergy Unknown A Verified 09/19/24 08:52 CHILD, UNKNOWN RXN iodine AdvReac Rash Verified 09/19/24 08:52 Family History Father Colon cancer Mother CVA (cerebral vascular accident) Hypertension Diabetes Heart disease Sister Seizures Surgical History S/P thyroid biopsy S/P wisdom tooth extraction S/P tonsillectomy Social History Smoking Status: Never smoker second hand exposure: No alcohol intake: never substance use type: does not use caffeine: No what type of physical activity do you participate in: none frequency: does not exercise seatbelt use: always ROS Constitutional Constitutional: Reports systems reviewed and no addt'l complaints, except as documented Eyes Eyes: Reports systems reviewed and no addt'l complaints, except as documented ENT HEENT: Reports systems reviewed and no addt'l complaints, except as documented Cardiovascular Cardiovascular: Reports systems reviewed and no addt'l complaints, except as documented Respiratory/Chest Respiratory/Chest: Reports systems reviewed and no addt'l complaints, except as documented Gastrointestinal Gastrointestinal: Reports systems reviewed and no addt'l complaints, except as documented Genitourinary Genitourinary: Reports systems reviewed and no addt'l complaints, except as documented Vital Signs Vital Signs Vital Signs: 09/19/24 08:53 09/19/24 08:53 09/19/24 09:18 Temperature 97.4 F L 97.4 F L Temperature Source Temporal Pulse Rate 60 60 Respiratory Rate 16 16 Respiratory Pattern Normal Blood Pressure 111/73 111/73 Blood Pressure Mean 85 Blood Pressure Source Monitor Blood Pressure Position Semi-Fowlers Blood Pressure Location Left Arm Pulse Ox 94 94 Oxygen Delivery Method Room Air Weight Weight: 295 lb 10.238 oz Body Mass Index (BMI) 44.9 Physical Exam Const alert, oriented x3 and no apparent distress Results Lab / Micro Data Labs: Laboratory Results - last 24 hr 09/19/24 08:45: Urine Test Negative Assessment & Plan Assessment/Plan (1) GERD (gastroesophageal reflux disease): QUALIFIERS: Esophagitis presence: esophagitis presence not specified Qualified Code(s): K21.9 - Gastro-esophageal reflux disease without esophagitis (2) Family history of colon cancer: PLAN: Plan EGD and colonoscopy planned for this morning 09/19/24 0957 <Electronically signed by Vinh Man MD> Cosigner Signature (if applicable): CC: Dr. Mika Coughlin MD; Dr. Vinh Man MD~ Signed [facility] Work Phone: Reudqt for referral (narrative)* Diagnostic Procedure Only (Urgent) - Closed Specialty Diagnoses / Procedures Referred By Contac t Referred To Contact XR IMAGING Diagnoses Fall down stairs, initial encounter Foot pain, right Procedures XR FOOT GENERAL 3V AP/LAT/OBL RIGHT RADEX FOOT COMPLETE MINIMUM 3 VIEWS Marleni Irizarry APRN.[employer] [address] [place] [address] [place] [address] Referral ID Status Reason Start Date Expiration Date V isits Requested Visits Authorized [id number] Closed Auto-Generate d Referral 01/28/2024 02/26/2025 [facility]No reason for referral [facility] Work Phone: Rexszb for visit Narrative* Diagnostic Procedure Only (Urgent) - Closed Specialty Diagnoses / Procedures Referred By Contac t Referred To Contact XR IMAGING Diagnoses Fall down stairs, initial encounter Foot pain, right Procedures XR FOOT GENERAL 3V AP/LAT/OBL RIGHT RADEX FOOT COMPLETE MINIMUM 3 VIEWS Marleni Irizarry APRN.[employer] [address] [place] [address] [place] [address] Referral ID Status Reason Start Date Expiration Date V isits Requested Visits Authorized [id number] Closed Auto-Generate d Referral 01/28/2024 02/26/2025 1 1 [facility] Chief Complaint and Reason for Visit Chief Complaint Admit Date COLONOSCOPY, EGD August 15, 2024 9:58a m NODULE August 23, 2024 2:06 pm Reason for Visit Admit Date Family history of colon cancer August 15, 2024 9:58am GERD (gastroesophageal reflux disease) J [facility] 2024 9:58am Screening for colon cancer August 15 9:58am Chief Complaint THYROID NODULE Chief Complaint THYROID NODULE SCREENING Chief Complaint Admit Date COLONOSCOPY, EGD August 15, 2024 9:58a m Reason for Visit Admit Date Family history of colon cancer August 15, 2024 9:58am Reason for Visit Admit Date Family history of colon cancer August 15, 2024 9:58am GERD (gastroesophageal reflux disease) J [facility] 2024 9:58am Screening for colon cancer August 15 9:58am Family history of colon cancer September 19, 2024 8:25am GERD (gastroesophageal reflux disease) J [facility] 2024 8:25am Chief Complaint Admit Date COLONOSCOPY, EGD August 15, 2024 9:58a m NODULE August 23, 2024 2:06 pm 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) October 20, 2024 9:1 2am Reason for Visit Admit Date Family history of colon cancer August 15, 2024 9:58am GERD (gastroesophageal reflux disease) J [facility] 2024 9:58am Screening for colon cancer August 15 9:58am Family history of colon cancer September 19, 2024 8:25am GERD (gastroesophageal reflux disease) J [facility] 2024 8:25am Encounter for routine gynecological exam ination October 20, 2024 9:12am Reason for Visit Admit Date Family history of colon cancer August 15, 2024 9:58am GERD (gastroesophageal reflux disease) J [facility] 2024 9:58am Screening for colon cancer August 15 9:58am Family history of colon cancer September 19, 2024 8:25am GERD (gastroesophageal reflux disease) J [facility] 2024 8:25am Irregular menses October 20, 2024 9:1 2am Encounter for routine gynecological exam ination October 20, 2024 9:12am Chief Complaint Admit Date COLONOSCOPY, EGD August 15, 2024 9:58a m NODULE August 23, 2024 2:06 pm 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) October 20, 2024 9:1 2am Trich on Pap *Tyra from 11/09November 23, 2024 8:25am Reason for Visit Admit Date Family history of colon cancer August 15, 2024 9:58am GERD (gastroesophageal reflux disease) J [facility] 2024 9:58am Screening for colon cancer August 15 9:58am Family history of colon cancer September 19, 2024 8:25am GERD (gastroesophageal reflux disease) J [facility] 2024 8:25am Irregular menses October 20, 2024 9:1 2am Encounter for routine gynecological exam ination October 20, 2024 9:12am ASCUS with positive high risk HPV Septem 2024 8:25am Possible exposure to STD November 23, 2024 8:25am Chief Complaint Admit Date COLONOSCOPY, EGD August 15, 2024 9:58a m NODULE August 23, 2024 2:06 pm 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) October 20, 2024 9:1 2am Trich on Pap *Tyra from 11/09November 23, 2024 8:25am [place] for ASCUS, +HPV December 05 3:52pm Reason for Visit Admit Date Family history of colon cancer August 15, 2024 9:58am GERD (gastroesophageal reflux disease) J [facility] 2024 9:58am Screening for colon cancer August 15 9:58am Family history of colon cancer September 19, 2024 8:25am GERD (gastroesophageal reflux disease) J [facility]2024 8:25am Irregular menses October 20, 2024 9:1 2am Encounter for routine gynecological exam ination October 20, 2024 9:12am ASCUS with positive high risk HPV Septem 2024 8:25am Possible exposure to STD November 23, 2024 8:25am ASCUS with positive high risk HPV Septem 2024 3:52pm Possible exposure to STD December 05, 2024 3:52pm Chief Complaint Admit Date NODULE August 23, 2024 2:06 pm 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) October 20, 2024 9:1 2am Trich on Pap *Tyra from 11/09November 23, 2024 8:25am [place] for ASCUS, +HPV December 05 3:52pm Reason for Visit Admit Date Family history of colon cancer September 19, 2024 8:25am GERD (gastroesophageal reflux disease) J [facility] 2024 8:25am Irregular menses October 20, 2024 9:1 2am Encounter for routine gynecological exam ination October 20, 2024 9:12am ASCUS with positive high risk HPV Septem 2024 8:25am Possible exposure to STD November 23, 2024 8:25am ASCUS with positive high risk HPV Septem 2024 3:52pm Possible exposure to STD December 05, 2024 3:52pm Family History No Family History Records Found Relationship Condition Age at Onset Recorded Date/T [place] father Malignant neoplasm of colon Unknown mother Cerebrovascular accident (CVA) Unknown Hypertension Unknown Diabetes mellitus Unknown sister Seizure Unknown Relationship Condition Age at Onset Recorded Date/T shaka father Malignant neoplasm of colon Unknown mother Cerebrovascular accident (CVA) Unknown Hypertension Unknown Diabetes mellitus Unknown Cardiac disease Unknown sister Seizure Unknown Relationship Condition Age at Onset Recorded Date/T shaka father Malignant neoplasm of colon Unknown Alcoholism Unknown mother Cerebrovascular accident (CVA) Unknown Hypertension Unknown Diabetes mellitus Unknown Cardiac disease Unknown Anxiety Unknown Arthritis Unknown Disorder of intestine Unknown Depression Unknown sister Seizure Unknown daughter Anxiety Unknown Asthma Unknown grandmother Malignant neoplasm of breast Unknown Malignant neoplasm of cervix Unknown Malignant neoplasm of colon Unknown Advance Directives No Advanced Directives Records Found Advance Directive Response Recorded Date/ Time Living Will No April 09 18 4:48pm Power of Talent Director No April 09, 2017 4:48pm Advance Directive Response Recorded Date/ Time Living Will No March 06, 022 1:41pm Power of Talent Director No March 06, 2022 1:41pm Advance Directive Response Recorded Date/ Time Do you have a Healthcare Power of Talent Director? No September 14, 2024 11:07am Health Concerns Infection Onset Date Last Indicated Resolved Time COVID-19 Rule-Out 02/21/2023 02/21/2023 Summary Purpose Additional Source Comments Goals (unrecognized section and content) Goals may be documented in a n alternate sectionGoals may be documented in an alternate sectionGoals may be documented in an alternate sectionGoals may be documented in an alternate sectionGoals may be documented in an alternate sectionGoals may be documented in an alternate sectionGoals may be documented in an alternate section Source Comments (unrecognize d section and content) In the event this informatio n is protected by the Federal Confidentiality of Alcohol and Drug Abuse Patient Records regulations: The Federal rules restrict any use of the information to criminally investigate or prosecute any alcohol or drug abuse patient.[facility] the event this information is protected by the Federal Confidentiality of Alcohol and Drug Abuse Patient Records regulations: The Federal rules restrict any use of the information to criminally investigate or prosecute any alcohol or drug abuse patient.[facility] Center[facility] the event this information is protected by the Federal Confidentiality of Alcohol and Drug Abuse Patient Records regulations: The Federal rules restrict any use of the information to criminally investigate or prosecute any alcohol or drug abuse patient.[facility] Center[facility] the event this information is protected by the Federal Confidentiality of Alcohol and Drug Abuse Patient Records regulations: The Federal rules restrict any use of the information to criminally investigate or prosecute any alcohol or drug abuse patient.[facility] Center[facility] the event this information is protected by the Federal Confidentiality of Alcohol and Drug Abuse Patient Records regulations: The Federal rules restrict any use of the information to criminally investigate or prosecute any alcohol or drug abuse patient.[facility] the event this information is protected by the Federal Confidentiality of Alcohol and Drug Abuse Patient Records regulations: The Federal rules restrict any use of the information to criminally investigate or prosecute any alcohol or drug abuse patient.[facility] Center[facility] the event this information is protected by the Federal Confidentiality of Alcohol and Drug Abuse Patient Records regulations: The Federal rules restrict any use of the information to criminally investigate or prosecute any alcohol or drug abuse patient.[facility] Center[facility] the event this information is protected by the Federal Confidentiality of Alcohol and Drug Abuse Patient Records regulations: The Federal rules restrict any use of the information to criminally investigate or prosecute any alcohol or drug abuse patient.[facility] Center[facility] the event this information is protected by the Federal Confidentiality of Alcohol and Drug Abuse Patient Records regulations: The Federal rules restrict any use of the information to criminally investigate or prosecute any alcohol or drug abuse patient.[facility] Center[facility] the event this information is protected by the Federal Confidentiality of Alcohol and Drug Abuse Patient Records regulations: The Federal rules restrict any use of the information to criminally investigate or prosecute any alcohol or drug abuse patient.[facility] Reason for Visit (unrecogniz ed section and content) Reason Comments Cough some post nasal drip , scratchy throat and swollen glands x 2 days Reason Comments Results Reason Comments welts on arms and trunk Bit by bed bugs 2 days ago Reason Comments Nasal Congestion X 2 days Reason Comments Laceration L knee cut from fall ing on stairs x this AM Reason Comments Cough Chest congestion, wh eezing x5 days Care Teams (unrecognized sec tion and content) Team Status: Active Member Role Status Dates Dr. Mika Coughlin MD Primary Care Provider Active Team Status: Inactive Member Role Status Dates Dr. Mika Coughlin MD Primary Care Provider Active Start: August 12, 2024 End: August 12, 2024 Dr. Mika Coughlin MD Attending Provider Active Start: August 12, 2024 End: August 12, 2024 Team Status: Inactive Member Role Status Dates Dr. iMka Coughlin MD Primary Care Provider Active Start: August 15, 2024 End: August 15, 2024 Dr. Mika Coughlin MD Referring Provider Active Start: August 15, 2024 End: August 15, 2024 Dr. Vinh Man MD Attending Provider Active Start: August 15, 2024 End: August 15, 2024 Parts Representative Relationship Specialty Start Date End Date Mika Coughlin [address] [place] [address] PCP - General Family Practice 07/09/21 Parts Representative Relationship Specialty Start Date End Date Mika Coughlin [address] [place] [address] PCP - General Family Practice 07/09/21 Parts Representative Relationship Specialty Start Date End Date Mika Coughlin [address] [place] [address] PCP - General Family Medicine 07/09/21 Team Status: Active Member Role Status Dates Dr. Mika Coughlin MD Family Provider Active Dr. Mika Coughlin MD Primary Care Provider Active Team Status: Inactive Member Role Status Dates Dr. Mika Coughlin MD Primary Care Provider, Attend [facility] Provider Active Parts Representative Relationship Specialty Start Date End Date Mika Coughlin MD [address] [place] [address] PCP - General Family Medicine 07/09/21 Parts Representative Relationship Specialty Start Date End Date Mika Coughlin MD [address] [place] [address] PCP - General Family Medicine 07/09/21 Parts Representative Relationship Specialty Start Date End Date Mika Coughlin MD [address] [place] [address] PCP - General Family Medicine 07/09/21 Parts Representative Relationship Specialty Start Date End Date Mika Coughlin MD [address] [place] [address] PCP - General Family Medicine 07/09/21 Parts Representative Relationship Specialty Start Date End Date Mika Coughlin MD [address] [place] [address] PCP - General Family Medicine 07/09/21 Parts Representative Relationship Specialty Start Date End Date Mika Coughlin MD [address] [place] [address] PCP - General Family Medicine 07/09/21 Team Status: Active Member Role Status Dates Dr. Mika Coughlin MD Primary Care Provider Active Start: August 12, 2024 Dr. Mika Coughlin MD Attending Provider Active Start: August 12, 2024 Team Status: Inactive Member Role Status Dates Dr. Mika Coughlin MD Primary Care Provider Active Start: August 23, 2024 End: August 23, 2024 Dr. Mika Coughlin MD Attending Provider Active Start: August 23, 2024 End: August 23, 2024 Dr. Mika Coughlin MD Referring Provider Active Start: August 23, 2024 End: August 23, 2024 Team Status: Active Member Role/Relationship Status Dates Dr. Mika Coughlin MD Primary Care Provider Active Team Status: Inactive Member Role/Relationship Status Dates Dr. Mika Coughlin MD Primary Care Provider Active Start: August 12, 2024 End: August 12, 2024 Dr. Mika Coughlin MD Attending Provider Active Start: August 12, 2024 End: August 12, 2024 Team Status: Inactive Member Role/Relationship Status Dates Dr. Mika Coughlin MD Primary Care Provider Active Start: August 15, 2024 End: August 15, 2024 Dr. Mika Coughlin MD Referring Provider Active Start: August 15, 2024 End: August 15, 2024 Dr. Vinh Man MD Attending Provider Active Start: August 15, 2024 End: August 15, 2024 Team Status: Inactive Member Role/Relationship Status Dates Dr. Mika Coughlin MD Primary Care Provider Active Start: August 23, 2024 End: August 23, 2024 Dr. Mika Coughlin MD Attending Provider Active Start: August 23, 2024 End: August 23, 2024 Dr. Mika Coughlin MD Referring Provider Active Start: August 23, 2024 End: August 23, 2024 Team Status: Inactive Member Role/Relationship Status Dates Dr. Mika Coughlin MD Primary Care Provider Active Start: September 19, 2024 End: September 19, 2024 Dr. Mika Coughlin MD Referring Provider Active Start: September 19, 2024 End: September 19, 2024 Dr. Vinh Man MD Attending Provider Active Start: September 19, 2024 End: September 19, 2024 Team Status: Active Member Role/Relationship Status Dates Dr. Mika Coughlin MD Primary Care Provider Active Start: September 19, 2024 Dr. Mika Coughlin MD Referring Provider Active Start: September 19, 2024 Dr. Vinh Man MD Attending Provider Active Start: September 19, 2024 Dr. Vinh Man MD Other Provider Active St art: September 19, 2024 Team Status: Inactive Member Role/Relationship Status Dates Dr. Mika Coughlin MD Primary Care Provider Active Start: October 20, 2024 End: October 20, 2024 Dr. Mika Coughlin MD Referring Provider Active Start: October 20, 2024 End: October 20, 2024 JHONATHAN AyersC Attending Provider Active Start: October 20, 2024 End: October 20, 2024 Team Status: Inactive Member Role/Relationship Status Dates Dr. Mika Coughlin MD Primary Care Provider Active Start: October 20, 2024 End: October 20, 2024 MISHA Ayers Attending Provider Active Start: October 20, 2024 End: October 20, 2024 Team Status: Inactive Member Role/Relationship Status Dates Dr. Mika Coughlin MD Primary Care Provider Active Start: November 23, 2024 End: November 23, 2024 Dr. Mika Coughlin MD Referring Provider Active Start: November 23, 2024 End: November 23, 2024 MISHA Ayers Attending Provider Active Start: November 23, 2024 End: November 23, 2024 Team Status: Active Member Role/Relationship Status Dates Dr. Mika Coughlin MD Primary Care Provider Active Start: November 23, 2024 MISHA Ayers Attending Provider Active Start: November 23, 2024 MISHA Ayers Referring Provider Active Start: November 23, 2024 Team Status: Active Member Role/Relationship Status Dates Dr. Mika Coughlin MD Primary care physician Active Team Status: Inactive Member Role/Relationship Status Dates Dr. Mika Coughlin MD Primary care physician Active Start: August 12, 2024 End: August 12, 2024 Dr. Mika Coughlin MD Attending physician Active Start: August 12, 2024 End: August 12, 2024 Team Status: Inactive Member Role/Relationship Status Dates Dr. Mika Coughlin MD Primary care physician Active Start: August 15, 2024 End: August 15, 2024 Dr. Mika Coughlin MD Referring Provider Active Start: August 15, 2024 End: August 15, 2024 Dr. Vinh Man MD Attending physician Active Start: August 15, 2024 End: August 15, 2024 Team Status: Inactive Member Role/Relationship Status Dates Dr. Mika Coughlin MD Primary care physician Active Start: August 23, 2024 End: August 23, 2024 Dr. Mika Coughlin MD Attending physician Active Start: August 23, 2024 End: August 23, 2024 Dr. Mika Coughlin MD Referring Provider Active Start: August 23, 2024 End: August 23, 2024 Team Status: Inactive Member Role/Relationship Status Dates Dr. Mika Coughlin MD Primary care physician Active Start: September 19, 2024 End: September 19, 2024 Dr. Mika Coughlin MD Referring Provider Active Start: September 19, 2024 End: September 19, 2024 Dr. Vinh Man MD Attending physician Active Start: September 19, 2024 End: September 19, 2024 Team Status: Active Member Role/Relationship Status Dates Dr. Mika Coughlin MD Primary care physician Active Start: September 19, 2024 Dr. Mika Coughlin MD Referring Provider Active Start: September 19, 2024 Dr. Vinh Man MD Attending physician Active Start: September 19, 2024 Dr. Vinh Man MD Nurse Practitioner Active Start: September 19, 2024 Team Status: Inactive Member Role/Relationship Status Dates Dr. Mika Coughlin MD Primary care physician Active Start: October 20, 2024 End: October 20, 2024 Dr. Mika Coughlin MD Referring Provider Active Start: October 20, 2024 End: October 20, 2024 MISHA Ayers Attending physician Active Start: October 20, 2024 End: October 20, 2024 Team Status: Inactive Member Role/Relationship Status Dates Dr. Mika Coughlin MD Primary care physician Active Start: October 20, 2024 End: October 20, 2024 MISHA Ayers Attending physician Active Start: October 20, 2024 End: October 20, 2024 Team Status: Inactive Member Role/Relationship Status Dates Dr. Mika Coughlin MD Primary care physician Active Start: November 23, 2024 End: November 23, 2024 Dr. Mika Coughlin MD Referring Provider Active Start: November 23, 2024 End: November 23, 2024 MISHA Ayers Attending physician Active Start: November 23, 2024 End: November 23, 2024 Team Status: Inactive Member Role/Relationship Status Dates Dr. Mika Coughlin MD Primary care physician Active Start: November 23, 2024 End: November 23, 2024 MISHA Ayers Attending physician Active Start: November 23, 2024 End: November 23, 2024 MISHA Ayers Referring Provider Active Start: November 23, 2024 End: November 23, 2024 Team Status: Inactive Member Role/Relationship Status Dates Dr. Mika Coughlin MD Primary care physician Active Start: August 15, 2024 End: August 15, 2024 Dr. Mika Coughlin MD Referring Provider Active Start: August 15, 2024 End: August 15, 2024 Dr. Vinh Man MD Attending physician Active Start: August 15, 2024 End: August 15, 2024 Team Status: Inactive Member Role/Relationship Status Dates Dr. Mika Coughlin MD Primary care physician Active Start: August 23, 2024 End: August 23, 2024 Dr. Mika Coughlin MD Attending physician Active Start: August 23, 2024 End: August 23, 2024 Dr. Mika Coughlin MD Referring Provider Active Start: August 23, 2024 End: August 23, 2024 Team Status: Inactive Member Role/Relationship Status Dates Dr. Mika Coughlin MD Primary care physician Active Start: September 19, 2024 End: September 19, 2024 Dr. Mika Coughlin MD Referring Provider Active Start: September 19, 2024 End: September 19, 2024 Dr. Vinh Man MD Attending physician Active Start: September 19, 2024 End: September 19, 2024 Team Status: Active Member Role/Relationship Status Dates Dr. Mika Coughlin MD Primary care physician Active Start: September 19, 2024 Dr. Mika Coughlin MD Referring Provider Active Start: September 19, 2024 Dr. Vinh Man MD Attending physician Active Start: September 19, 2024 Dr. Vinh Man MD Nurse Practitioner Active Start: September 19, 2024 Team Status: Inactive Member Role/Relationship Status Dates Dr. Mika Coughlin MD Primary care physician Active Start: October 20, 2024 End: October 20, 2024 Dr. Mika Coughlin MD Referring Provider Active Start: October 20, 2024 End: October 20, 2024 MISHA Ayers Attending physician Active Start: October 20, 2024 End: October 20, 2024 Team Status: Inactive Member Role/Relationship Status Dates Dr. Mika Coughlin MD Primary care physician Active Start: October 20, 2024 End: October 20, 2024 MISHA Ayers Attending physician Active Start: October 20, 2024 End: October 20, 2024 Team Status: Inactive Member Role/Relationship Status Dates Dr. Mika Coughlin MD Primary care physician Active Start: November 23, 2024 End: November 23, 2024 Dr. Mika Coughlin MD Referring Provider Active Start: November 23, 2024 End: November 23, 2024 MISHA Ayers Attending physician Active Start: November 23, 2024 End: November 23, 2024 Team Status: Inactive Member Role/Relationship Status Dates Dr. Mika Coughlin MD Primary care physician Active Start: November 23, 2024 End: November 23, 2024 MISHA Ayers Attending physician Active Start: November 23, 2024 End: November 23, 2024 MISHA Ayers Referring Provider Active Start: November 23, 2024 End: November 23, 2024 Team Status: Inactive Member Role/Relationship Status Dates Dr. Mika Coughlin MD Primary care physician Active Start: December 05, 2024 End: December 05, 2024 Dr. Mika Coughlin MD Referring Provider Active Start: December 05, 2024 End: December 05, 2024 Dr. Shilpa Martinez MD Attending physician Active Start: December 05, 2024 End: December 05, 2024 Team Status: Active Member Role/Relationship Status Dates Dr. Mika Coughlin MD Primary care physician Active Start: December 05, 2024 Dr. Mika Coughlin MD Attending physician Active Start: December 05, 2024 Team Status: Inactive Member Role/Relationship Status Dates Dr. Mika Coughlin MD Primary care physician Active Start: August 23, 2024 End: August 23, 2024 Dr. Mika Coughlin MD Attending physician Active Start: August 23, 2024 End: August 23, 2024 Dr. Mika Coughlin MD Referring Provider Active Start: August 23, 2024 End: August 23, 2024 Team Status: Inactive Member Role/Relationship Status Dates Dr. Mika Coughlin MD Primary care physician Active Start: September 19, 2024 End: September 19, 2024 Dr. Mika Coughlin MD Referring Provider Active Start: September 19, 2024 End: September 19, 2024 Dr. Vinh Man MD Attending physician Active Start: September 19, 2024 End: September 19, 2024 Team Status: Active Member Role/Relationship Status Dates Dr. Mika Coughlin MD Primary care physician Active Start: September 19, 2024 Dr. Mika Coughlin MD Referring Provider Active Start: September 19, 2024 Dr. Vinh Man MD Attending physician Active Start: September 19, 2024 Dr. Vinh Man MD Nurse Practitioner Active Start: September 19, 2024 Team Status: Inactive Member Role/Relationship Status Dates Dr. Mika Coughlin MD Primary care physician Active Start: October 20, 2024 End: October 20, 2024 Dr. Mika Coughlin MD Referring Provider Active Start: October 20, 2024 End: October 20, 2024 MISHA Ayers Attending physician Active Start: October 20, 2024 End: October 20, 2024 Team Status: Inactive Member Role/Relationship Status Dates Dr. Mika Coughlin MD Primary care physician Active Start: October 20, 2024 End: October 20, 2024 MISHA Ayers Attending physician Active Start: October 20, 2024 End: October 20, 2024 Team Status: Inactive Member Role/Relationship Status Dates Dr. Mika Coughlin MD Primary care physician Active Start: November 23, 2024 End: November 23, 2024 Dr. Mika Coughlin MD Referring Provider Active Start: November 23, 2024 End: November 23, 2024 MISHA Ayers Attending physician Active Start: November 23, 2024 End: November 23, 2024 Team Status: Inactive Member Role/Relationship Status Dates Dr. Mika Coughlin MD Primary care physician Active Start: November 23, 2024 End: November 23, 2024 MISHA Ayers Attending physician Active Start: November 23, 2024 End: November 23, 2024 MISHA Ayers Referring Provider Active Start: November 23, 2024 End: November 23, 2024 Team Status: Inactive Member Role/Relationship Status Dates Dr. Mika Coughlin MD Primary care physician Active Start: December 05, 2024 End: December 05, 2024 Dr. Mika Coughlin MD Referring Provider Active Start: December 05, 2024 End: December 05, 2024 Dr. Shilpa Martinez MD Attending physician Active Start: December 05, 2024 End: December 05, 2024 Team Status: Inactive Member Role/Relationship Status Dates Dr. Mika Coughlin MD Primary care physician Active Start: December 05, 2024 End: December 05, 2024 Dr. Mika Coughlin MD Attending physician Active Start: December 05, 2024 End: December 05, 2024 INFORMATION SOURCE (unrecogn ized section and content) DATE CREATED AUTHOR 12/18/2024 [facility] DATE CREATED AUTHOR AUTHOR'S ORGANIZ ATION 01/24/2025 [facility] FOR RECORDS PERTAINING TO PATIENTS WHO ARE OR HAVE BEEN ENROLLED IN A CHEMICAL DEPENDENCY/SUBSTANCEABUSE PROGRAM, SOME INFORMATION MAY BE OMITTED. This clinical summary was aggregated from multiple sources. Caution should be exercised in using it in the provision of clinical care. This summary normalizes information from multiple sources, and as a consequence, information in this document may materially change the coding, format and clinical context of patient data. In addition, data may be omitted in some cases. CLINICAL DECISIONS SHOULD BE BASED ON THE PRIMARY CLINICAL RECORDS. [employer] provides no warranty or guarantee of the accuracy or completeness of information in this document.
[2025-03-15 11:58] LABS: Hematocrit 38.0 % (37-47); Hemoglobin 12.4 g/dL (12.0-15.0); Immature Granulocytes Count 0.020 X10^3/uL (0.0-0.0); Mean Corp Hgb Conc 32.6 g/dL (32-36); Mean Corpuscular Volume 81.9 fL (81-99); Mean Platelet Vol. 10.5 fl (6.2-12.0); NRBC Flagged by Analyzer 0 % (0-5); Platelet Count 274 K/mm3 (150-450); RBC Distribution Width CV 14.8 % (11.6-14.6); RBC Distribution Width SD 44.3 fl (35.1-43.9); Red Blood Count 4.64 M/mm3 (4.2-5.4); White Blood Count 5.1 K/mm3 (4.4-11.0)
[2025-03-15 12:14] LABS: AST(SGOT) 21 U/L (<=31); Alanine Aminotransfer ALT/SGPT 18 U/L (<=34); Albumin, Serum 4.0 g/dL (3.5-5.0); Alkaline Phosphatase 78 U/L (35-104); Anion Gap 11 (7-18); BUN 14 mg/dL (4-19); BUN/Creat Ratio 20.1 RATIO (10-20); Calcium,Total 8.9 mg/dL (7.6-11.0); Carbon Dioxide 24.7 mmol/L (20.0-29.0); Chloride 106 mmol/L (96-106); Cholesterol 184 mg/dL (<=200); Globulin 3.3 g/dL (2.2-4.2); Glucose 103 mg/dL (70-99); Low Density Lipoprotein Calc. 117 mg/dL; Potassium 3.8 mmol/L (3.5-5.1); Triglycerides 88 mg/dL; Very Low Density Lipoprotein 18 mg/dL (5-40); cholesterol:hdl ratio screen 3.63
== END | disposition home or self-care (01) ==
LOC: MTLAB 10:05
PROVIDERS: PCP Family Medicine; Referring Provider Family Medicine; Visit Provider Family Medicine
DX: R73.09 Other abnormal glucose (principal); E66.01 Morbid (severe) obesity due to excess calories
CPT/HCPCS: 36415; 80053; 80061; 83036; 85025